=== PATIENT | female | born 1945 | race Caucasian/White ===

== ENCOUNTER → 2018-08-13 13:31 | Outpatient (CLI) | payer OTHER, SELFPAY ==
[2018-08-13 14:31] LABS: Alanine Aminotransferase 41 IU/L (9-52); Albumin 4.4 g/dL (3.5-5.0); Albumin Globulin Ratio 1.6 (1.0-2.8); Alkaline Phosphatase 77 U/L (38-126); Aspartate Aminotransferase 41 IU/L (14-36); BUN Creatinine Ratio 18.3 (6-22); Bilirubin Total 0.9 mg/dL (0.2-1.3); Blood Urea Nitrogen 11 mg/dL (7-17); Calcium 9.8 mg/dL (8.4-10.2); Carbon Dioxide 31 mmol/L (22-32); Chloride 103 mmol/L (98-107); Cholesterol 259 mg/dL (140-199); Estimated Glomerular Filt Rate > 60.0 mL/min (>60); Globulin 2.7 g/dL (1.7-4.1); Glucose 122 mg/dL (80-110); HDL Cholesterol 33 mg/dL (40-60); HEMOLYSIS 16 (0-50); LDL Cholesterol Calculated 178 mg/dL (<100); Potassium 4.8 mmol/L (3.4-5.1); Sodium 144 mmol/L (137-145); Total Protein 7.1 g/dL (6.3-8.2); Triglycerides 241 mg/dL (35-150)
== END ==
PROVIDERS: Family Provider Family Medicine; PCP Family Medicine; Visit Provider Family Medicine
DX: E78.5 Hyperlipidemia, unspecified (principal); I10 Essential (primary) hypertension; Z51.81 Encounter for therapeutic drug level monitoring
CPT/HCPCS: 36415; 80053; 80061

== ENCOUNTER → 2019-01-30 13:54 | Outpatient (CLI) | payer OTHER, SELFPAY ==
--- NOTE | 2019-01-30 13:59 | DI.RAD.S_ITS ---
PROCEDURE: XR CHEST 2V INDICATIONS: breast cancer left r/o mets TECHNIQUE: 2 views of the chest were acquired. COMPARISON: None. FINDINGS: Surgical changes and devices: None. Lungs and pleura: Lungs are clear. No pleural effusions or pneumothorax. Mediastinum: Mediastinal contours are normal. Heart size is normal. Bones and chest wall: No suspicious bony abnormalities. Soft tissues appear unremarkable. IMPRESSION: No abnormality found. Dictated by: Amrit Gonzalez M.D. on 01/30/2019 at 16:39 Approved by: Amrit Gonzalez M.D. on 01/30/2019 at 16:39
[2019-01-30 14:30] LABS: Add Manual Diff / Slide Review NO; Alanine Aminotransferase 47 IU/L (9-52); Albumin 4.7 g/dL (3.5-5.0); Albumin Globulin Ratio 1.5 (1.0-2.8); Alkaline Phosphatase 79 U/L (38-126); Aspartate Aminotransferase 45 IU/L (14-36); Basophils Absolute Auto 100 /uL (0-100); Basophils Percent Auto 1.3 % (0-2); Bilirubin Total 0.7 mg/dL (0.2-1.3); Blood Urea Nitrogen 12 mg/dL (7-17); Calcium 9.8 mg/dL (8.4-10.2); Carbon Dioxide 30 mmol/L (22-32); Chloride 100 mmol/L (98-107); Eosinophils Absolute Auto 300 /uL (0-450); Eosinophils Percent Auto 3.3 % (2-4); Estimated Glomerular Filt Rate > 60.0 mL/min (>60); Globulin 3.2 g/dL (1.7-4.1); Glucose 106 mg/dL (80-110); HEMOLYSIS < 15 (0-50); Hematocrit 41.9 % (36-46); Hemoglobin 13.6 g/dL (12.0-16.0); Lymphocytes Absolute Auto 2400 /uL (1100-4500); Lymphocytes Percent Auto 27.1 % (25-40); Mean Corpuscular HGB Conc 32.5 % (30-36); Mean Corpuscular Hemoglobin 29.8 PG (26-34); Mean Corpuscular Volume 91.6 fL (80-100); Monocytes Absolute Auto 600 /uL (0-900); Monocytes Percent Auto 6.4 % (3-14); Neutrophils Absolute Auto 5500 /uL (1500-7000); Neutrophils Percent Auto 61.9 % (50-75); Platelet Count 269 X10^3/uL (150-400); Potassium 4.6 mmol/L (3.4-5.1); Red Blood Cell Count 4.58 X10^6/uL (4.0-5.2); Red Cell Distribution Width 14.4 % (11.6-14.8); Sodium 139 mmol/L (137-145); Total Protein 7.9 g/dL (6.3-8.2); White Blood Cell Count 8.8 X10^3/uL (4.5-11.0)
== END ==
PROVIDERS: Family Provider Family Medicine; PCP Family Medicine; Visit Provider Specialist
DX: C50.912 Malignant neoplasm of unspecified site of left female breast (principal); Z17.0 Estrogen receptor positive status [ER+]
CPT/HCPCS: 36415; 71046; 80053; 85025

== ENCOUNTER → 2019-02-12 10:57 | Outpatient (CLI) | payer OTHER, SELFPAY ==
--- NOTE | 2019-02-12 10:59 | DI.MRI.S_ITS ---
BREAST MRI OF BOTH BREASTS: 02/12/2019 CLINICAL: Left breast cancer. PROCEDURE: MR BREAST BI WO/W CON INDICATIONS: left breast cancer. 2 lesions on mammo one one U/S TECHNIQUE: The patient was placed prone in a dedicated breast imaging coil. Precontrast axial STIR and 3D FLASH without fat saturation sequences were obtained. Both before and after bolus injection of contrast, sequential 1-minute axial 3D FLASH with fat saturation sequences for 3 time points, with subtraction images and maximum intensity projections (MIP's) generated. Delayed sagittal FLASH images with fat saturation were also obtained. Computer-aided detection, including computer algorithm analysis of MRI image data for lesion detection and characterization, pharmacokinetic analysis, with further physician review for interpretation, was performed. COMPARISON: [facility], US, US BREAST LIMITED LEFT, 12/27/2018, 12:33. [facility], US, US BIOPSY BREAST 1ST LESION LEFT, 01/14/2019, 13:29. [facility] DIAGNOSTIC BILATERAL, 12/27/2018, 12:43. [facility], BILATERAL SCREENING MAMMOGRAM, 08/21/2015, 14:59. FINDINGS: Image quality: Excellent. There is moderate background parenchymal enhancement. Right breast: No suspicious lesions. No suspicious enhancement. Left breast: A spiculated enhancing mass is present within the left breast at 3:00 at a middle depth which corresponds with the biopsy proven neoplasm. On MRI this mass measures approximately 2.6 x 1.7 x 2.4 cm. This correlates with the spiculated mass within left breast on the comparison diagnostic mammogram dated 12/27/18. A satellite lesion measuring 1.1 x 0.8 x 0.9 cm is present at 4:00 at a posterior depth approximately 1 cm posterior and 1 cm inferior to the index lesion. There is no definite mammographic correlate to this lesion. Additionally, this was not seen on prior ultrasound. There is no MRI correlate to the two palpable lesions demarcated by the patient at 12:00 on the comparison mammogram dated 12/27/18. Miscellaneous: No axillary or intramammary adenopathy. Visualized portions of the upper abdomen, mediastinum, and lungs are grossly unremarkable on this limited view. The heart appears enlarged. IMPRESSION: KNOWN BIOPSY PROVEN MALIGNANCY 1. Spiculated mass at 3:00 in the left breast at a middle depth which corresponds with the biopsy proven neoplasm. 2. Small satellite lesion at 4:00 as described above. 3. No MRI correlate to the palpable masses demarcated by the patient at 12:00 on the comparison mammogram dated 12/27/18. 4. No findings to suggest jane metastasis. 5. No contralateral disease. Electronically Signed By: Nena Son M.D. lk/:02/13/2019 08:22:14 copy to: Kendra Espitia ACR BI-RADS Category 6: Known biopsy proven malignancy [id number]
== END ==
PROVIDERS: PCP Family Medicine; Visit Provider Specialist
DX: R92.8 Other abnormal and inconclusive findings on diagnostic imaging of breast (principal); C50.812 Malignant neoplasm of overlapping sites of left female breast; Z17.0 Estrogen receptor positive status [ER+]
CPT/HCPCS: 77049; A9579

== ENCOUNTER 2019-02-22 13:17 | Inpatient (IN) | payer OTHER, SELFPAY ==
[2019-02-12 07:28] VITALS: BMI 37.5
[2019-02-21] VITALS (17 sets, daily range): BP systolic 141–192; BP diastolic 69–90; PULSE 70–89; RESP 9–70; TEMP 35.9–36.8; O2SAT 92–99; BMI 37.4
--- NOTE | 2019-02-21 | PATH_ITS ---
[facility] Accession Number: [id number] . 01 Material submitted: . PART A: LEFT SENTINAL NODES PART B: LEFT BREAST . 01 Clinical history: . A: MULTIPLE . 01 Diagnosis: A. Left [place] Lymph Nodes, Lymph Node Dissection: Rare Isolated Tumor Cells (ITC) present, in one lymph node. Pathologic staging: pN0(i+), 0 out of 2 lymph nodes examined, see microscopic description. . B. Left Breast, Left Modified Radical Mastectomy: Invasive lobular carcinoma, pleomorphic-type, see microscopic description. Histologic grade ([place]): Intermediate (6/9). Tubal formation: minimal (3/3),nuclear pleomorphism: moderate (2/3), mitotic rate: low (1/3). Greatest length of invasive carcinoma: 3.4 cm, see microscopic description. Lymphovascular invasion: Not identified. Lobular carcinoma in situ: Present. Surgical margins: Negative for invasive and in situ lobular carcinoma. Invasive lobular carcinoma is within 0.6 cm from the closest posterior margin, 0.7 cm from the closest anterior/superior margin and 1.1 cm from the closest anterior/inferior margin. Pathologic staging: pT2,N0(i+),Mx. . See below CAP template (2019) for breast carcinoma, for details. . . CAP BREAST CANCER CASE SUMMARY: Procedure: Left modified radical mastectomy . Tumor site: Upper/lower outer quadrant (3 to 4 o'clock) Tumor size: 3.4 cm, see microscopic description Histologic type: Invasive lobular carcinoma (pleomorphic type) Histologic grade: [place] histologic score intermediate (6/9) Glandular/Acinar/Tubular differentiation: Score 3 (less than 10% of tumor area forming glandular/tubular structures Nuclear Pleomorphism: Score 2 Mitotic Rate: Score 1 Overall Grade: Grade 2 Tumor focality: Two foci of invasive carcinoma Number of foci: 2, the largest focus of invasive carcinoma measures 2.4 cm and the additional focus of invasive carcinoma measures 0.6 cm, see microscopic description. . Ductal carcinoma in situ: Not identified. . Tumor Extension: Skin is present and not involved. Nipple not involved. Skeletal muscle fibers are identified on the posterior aspect of the specimen (on the slides) and are not involved by carcinoma. . Invasive carcinoma margins: Not involved. Distance from the closest margin: Posterior margin: 0.6 cm (block B30) Anterior/superior margin: 0.7 cm (block B24) Anterior/inferior margin: 1.1 cm (block B14) . Lobular carcinoma in situ: Present, classic (non-pleomorphic) type. Lobular carcinoma in situ is identified in 14 blocks examined. Surgical margins: Not involved by lobular carcinoma in situ. The closest margin to lobular carcinoma in situ is: posterior 0.8 cm. . Regional Lymph Nodes: No lymph nodes identified within the axillary tail. [place] lymph nodes Two (0/2), see part A. Isolated tumor cells (two tumor cells, by immunohistochemistry), see part A. Number of sentinel lymph nodes examined: Two. . Treatment effect: No known presurgical therapy. . Lymphovascular invasion: Not identified. Dermal lymph-vascular invasion: Not identified. . Pathologic staging: Primary tumor: pT2 (tumor more than 20 mm but less than 50 mm in greatest dimension). Lymph nodes: pN0(i+) ITC only by immunohistochemistry. Distant metastasis: pMx (Unknown). . Breast biomarkers testing performed on previous biopsy (see [facility] report). Estrogen Receptor (ER): Positive (3+, more than 95%) Progesterone Receptor (MO): Positive (3+, 90%) HER2 (by immunohistochemistry): Negative (1+) . Microcalcifications: Not identified. . Additional findings: Atypical intraductal papilloma (block B3), see microscopic description. Sclerosing adenosis/fibrocystic changes/apocrine metaplasia present. Ductal epithelial proliferation (block B4), approaching the cauterized anterior/superior margin (due to cautery effect, further evaluation in that focus of epithelial ductal proliferation is limited). Calcified fibroadenoma present. Complex sclerosing lesion (radial scar) present. Previous biopsy changes present. Dystrophic vascular calcifications also present. . CAP breast template (updated 2019). MRV/02/27/2019 . 01 Comment: Selected slides have also been reviewed by Dr. Marco Ware (slides A1, B14, B3 and B4). . 01 Electronically signed: . Mariah Odell MD, Pathologist NPI- [id number] . 01 Gross description: . (A) Received in formalin, labeled multiple left sentinel nodes, is a piece of [place]-yellow rubbery adipose tissue (5.7 x 4.5 x 1.5 cm) containing two lymph nodes (node #1-1.2 x 0.5 x 0.3 cm; node #2-3.3 x 2.0 x 1.0 cm). Section code: (A1) lymph node #1, serially sectioned; (A2-A7) lymph node #2, serially sectioned. Additional sections: (A8, A9 and A10) remaining fatty tissue. Note: the entire specimen is submitted. (B) Received: In formalin labeled left breast, stitch feldman tail of Longo. Specimen: Left modified radical mastectomy. Weight: 661 grams. Measurement: 5.5 cm anterior to posterior, 18.3 cm medial to lateral and 16.8 cm superior to inferior. Skin ellipse: Absent. Nipple/areola: 1.3 x 1.2 cm everted nipple within a 5.2 x 2.7 cm areola apparently encircled by a rim of skin up to 1.5 cm in depth. No linear scar is identified. Axillary tail: Attached, nonoriented, measures 10.8 x 5.5 x 2.1 cm. Margins: The specimen is oriented by surgeon with two-tailed black suture marking the tail of Longo. The posterior surface is covered by fascia and is inked black. The anterior soft tissue margins are unremarkable and are inked blue for anterior superior and green for anterior inferior. Slices: Serial sections of the specimen are consecutively numbered 1 to 46, from medial to lateral. Masses: Two. Mass #1: Description: [place]-white, firm, irregular. Size: 2.4 x 1.8 x 1.5 cm. Slices involved: Slices #27-#32, 3 o'clock outer quadrant. Distance to margins: 1.2 cm from the posterior margin, 0.8 cm from the superficial anterior superior margin, 1.0 cm from the superficial anterior posterior margin, 1.2 cm from the skin/nipple and areolar complex, and 0.4 cm superior to mass #2. Mass #2: Description: [place]-white, firm and irregular. Size: 0.6 x 0.6 x 0.5 cm. Slices involved: Slices #28 and #29, approximately 3 o'clock to 4 o'clock outer quadrant. Distance to margins: 1.5 cm from the posterior, 1.8 cm from the superficial anterior superior margin, 0.9 cm from the superficial anterior inferior margin, and 1.4 cm from the skin/nipple and areolar complex. Slices #1-#17, as well as slices #35-#45 are fatty with a scant amount of tissue present. Slices #18-#34 are approximately 40% densely fibrous tissue with the remaining 60% fatty lobular parenchyma. The axillary tail is fatty with no lymph nodes identified. Fixation time: The specimen was placed in formalin on 02/21/2019 with no time given. The approximate total fixation time is calculated to be 69 hours 30 minutes. Sections: B1: Nipple, bisected and entirely submitted. B2: Areola with rim of skin, sections taken from 12 o'clock, 3 o'clock, 6 o'clock, and 9 o'clock. B3: Slice 22, fibrous tissue from 1.7 cm from the posterior and 2.5 cm from the anterior inferior resection margins. B4-B5, B6-B7: Slice #26, bottling equipment sales representative, no mass, medial to mass, submitted anterior to posterior and then superior to inferior. B8-B9, B10-B11: Slice #27, mass #1 with margins and surrounding fibrous tissue, submitted anterior to posterior and then superior to inferior. B12-B13, B14-B15: Slice #28, mass #1 with mass #2, submitted anterior to posterior and then superior to inferior. B16-B17, B18-B19, B20-B21, B22-B23: Slice #29, mass #1 with mass #2 submitted anterior to posterior then superior to inferior. B24-B25: Slice 30, mass #1 with margins and surrounding fibrous tissue, submitted anterior to posterior. B26-B27: Slice #31, mass #1 with margin and surrounding fibrous tissue, submitted superior to inferior. B28-B29: Slice 32, mass #1 with margin and surrounding fibrous tissue, submitted superior to inferior. B30-B31: Slice #33, bottling equipment sales representative, no mass, lateral to mass #1, submitted superior to inferior. B32: Slice #34, bottling equipment sales representative fibrous tissue with margin. B33: Upper outer quadrant. B34: Upper inner quadrant. B35: Lower outer quadrant. B36: Lower inner quadrant. (:[id number]) . Note: Dr. Shirley Chu has been consulted for the grossing of parts A and B. /MRV . 01 Microscopic: . Part A: Two sentinel lymph nodes are present (the entire specimen is submitted for microscopic examination as the attached nuclear radiology/nuclear medicine report mentioned 3 left axillary lymph nodes). On the H/E, no carcinoma cells were identified; therefore, JOCELYNE immunostain (panepithelial marker) was performed on all blocks with lymph nodes (A1-A7). On block A1, there are rare (two) tumor cells identified by immunohistochemistry. . Based on the CAP template for breast cancer, the pathologic staging (despite the rare isolated tumor cells) is pN0(1+), 0 lymph nodes out of 2 lymph nodes examined. . Part B: Although immunostains were performed on the initial biopsy, since this invasive carcinoma is much larger than the initial biopsy (multifocal and with pleomorphic morphology), immunohistochemistry was repeated to confirm the initial interpretation, with the following results: The carcinoma is negative for e-cadherin and beta-catenin, confirming lobular differentiation (stains performed on block B14). . To further evaluate the atypical intraductal papilloma (block B3), immunostains were performed with the following results: e-cadherin is positive on the epithelial cells (supporting ductal origin versus lobular origin), and myosin and p63 immunostains are present and slightly reduced. 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 . E-cadherin immunostain is also performed on block B5 in an attempt to support focus of atypical ductal hyperplasia (ADH) and exclude the possibility of lobular carcinoma in situ (LCIS); e-caderin is positive in the area of interest. This result supports ADH. . Size of invasive carcinoma: The largest dimension of one focus of invasive carcinoma measures 2.4 cm. In addition, there is another focus that measures 0.6 cm in largest diameter. This smaller focus shows identical histology and is located less than 5 mm from the larger focus. Therefore, since they are histologically identical and within less than 5 mm (4 mm apart), the largest size of invasive carcinoma is calculated to be 3.4 cm (2.4 cm plus 0.6 cm plus 0.4 cm). The pathologic staging based on the size is pT2. . Technical Note: The immunohistochemistry stains reported were developed and their performance characteristics determined by [employer] They have not been cleared or approved by the U.S. Food and Drug Administration, although such approval is not required for analyte-specific reagents of this type. . 01 Pathologist provided ICD-10: C50.512 . 01 CPT . 199257, 359702, C89870, P90750 Performed at: 01 [facility] [address] [place] [address], [place], [place] [id number] MD Jered Nielson MD Phone: [phone]
--- NOTE | 2019-02-21 09:08 | DI.NM.S_ITS ---
PROCEDURE: NM SENTINEL NODE W IMAGING RADIOPHARMACEUTICAL: 0.5-1.0 mCi Millipore filtered Tc-99m sulfur colloid. INDICATIONS: Preoperative mapping for sentinel node biopsy TECHNIQUE: The area around the nipple was prepped and draped in a sterile fashion. Tc-99m sulfur colloid was injected intra-dermally in the outer edge of the areola in the left breast. Images were obtained subsequently. A body contour outline was obtained. FINDINGS: There are 3 lymph node(s) in the ipsilateral axilla, which is marked on the skin and the images for referring physician. IMPRESSION: 3 ipsilateral left axillary lymph nodes are identified. Administration of radiotracer for intra-operative sentinel lymph node localization. Dictated by: Sherice Foreman M.D. on 02/21/2019 at 11:46 Approved by: Sherice Foreman M.D. on 02/21/2019 at 11:48
--- NOTE | 2019-02-21 11:38 | PM.PREOP ---
Pre-operative Note Interval Note History & Physical reviewed/Exam performed by Physician: Yes Changes to H&P: No
[2019-02-21] MEDS: CEFAZOLIN 2 GM/100 ML FROZ.PIGGY IV (11:55)
--- NOTE | 2019-02-21 12:21 | SUR.OPER ---
Supine on padded OR bed, head on pillow, arms secured on padded arm boards at <90 degrees abduction, legs uncrossed, safety belt at thigh, tape over blanket over lower legs.
[2019-02-21] MEDS: ACETAMINOPHEN IV 1,000 MG/100 ML VIAL 400 MG IV (12:59)
--- NOTE | 2019-02-21 14:19 | PM.OP.1 ---
Operative Date/Time/Diagnoses Date of procedure: 02/21/19 Time of procedure: 14:20 Pre-op diagnosis: Left-sided breast cancer Post-op diagnosis: same Procedure & Clinicians Procedure: Left mastectomy with sentinel node biopsy Same procedure as scheduled: Yes Indications: Patient with breast cancer opted to undergo mastectomy Surgeon: Gareth Martin Click Yes if Unassisted: Yes Anesthesia Type: General Operative Notes Findings: Multiple sentinel nodes removed in 1 piece of tissue. Closure Type: primary Specimen(s): other (Breast and sentinel nodes) Applied: drain(s) (Saul) Estimated Blood Loss (mL): 75 Blood products transfused: none Procedure in detail: Patient is placed supine on the operating room table and underwent general LMA anesthesia. She was prepped and draped in the usual fashion. Elliptical incision was made around her nipple-areolar complex. Flap was raised superiorly to the clavicle medially the midline and laterally to encompass tail of Longo. The dissection was carried down into the axilla and using the Navigator probe sentinel nodes were identified and removed. One piece of tissue was removed but there were multiple nodes within it that were hot. 10 sec counts on the strongest 1 were 25,000 and the 2nd was over 12,000. No other nodes remaining in the axilla came close to 10% of the values of those nodes. Flap was then raised inferiorly to the rectus fascia was incised over inferiorly medially and superiorly and then the breast was taken off the underlying muscle superior to inferior medial lateral. Ultimately the breast was detached and submitted. The wound was irrigated and was hemostasis achieved. A Saul drain 19 [place] was inserted under the flaps and extended toward the axilla. The subcu was closed with interrupted 3 0 Vicryl and the skin was closed running 4 Vicryl subcuticular stitch and Steri-Strips. The drain was secured with a 3 0 nylon. Applied and the patient was taken to the recovery area in good condition. Complications: none Condition: stable Disposition: PACU
--- NOTE | 2019-02-21 14:35 | SUR.PHASEI ---
REPORT CALLED TO VICKEY WOLF ON ACUTE CARE FLOOR. PT IN STABLE CONDITION, VSS. IV SITE CLEAR AND INFUSING WITHOUT DIFFICULTLY. DRSG OBSERVED TO BE C/D/I. VICTORINO DRAIN IN PLACE AND DRAINING RED BLOOD. PT DENIES ANY PAIN OR DISCOMFORT AT THIS TIME. PT DENIES ANY NAUSEA. WILL TRANSPORT TO ACUTE CARE AFTER SHIFT CHANGE AT 1520.
[2019-02-21] MEDS: HYDROMORPHONE 2 MG INJ 0.5 MG IV ×2 (14:58→15:06)
[2019-02-21] MEDS: LACTATED RINGERS 1,000 ML 42 ML IV (15:00)
--- NOTE | 2019-02-21 15:41 | SUR.PHASEI ---
PT TRANSFERRED TO ACUTE CARE FLOOR IN STABLE CONDITION, VSS. PT ALERT AND TALKING TO RN DURING TRANSPORT. FAMILY IN ROOM UPON ARRIVAL. BEDSIDE REPORT GIVEN TO VICKEY LENNON AND TRANSFERRED CARE OF PT TO VICKEY LNENON.
[2019-02-21] MEDS: DEXTROSE 5%-0.45% NS 1,000 ML 80 ML IV (16:01)
[2019-02-21] MEDS: OXYCODONE/ACETAMINOPHEN 5/325 TABLET 1 TAB PO ×2 (17:16→21:32)
[2019-02-21] MEDS: SERTRALINE 50 MG TABLET PO (20:20)
[2019-02-21] MEDS: DOCUSATE 100 MG CAPSULE PO (20:20)
[2019-02-22] VITALS (17 sets, daily range): BP systolic 115–162; BP diastolic 50–99; PULSE 58–95; RESP 12–20; TEMP 36.6–37.8; O2SAT 92–99; BMI 37.4
[2019-02-22] MEDS: OXYCODONE/ACETAMINOPHEN 5/325 TABLET 1 TAB PO ×3 (01:35→20:16)
[2019-02-22] MEDS: DEXTROSE 5%-0.45% NS 1,000 ML 80 ML IV ×2 (04:44→18:44)
--- NOTE | 2019-02-22 05:28 | PC.NURSE ---
Pt. taken to the bathroom by GAS TRUCK DRIVER for void, around 0500 and while in the bathroom pt. had a near syncopal episode, pt. pale and diaphoretic. Rapid Response page overhead and help arrived, pt. assisted to a wheelchair and wheeled back to bed. VS taken showed a B/P-135/57, HR-58, 97% RA, pain is 7/10 to incision site. Tele applied also and pts. rhythm showed SB 56-58 HR. Emptied Saul drain of 15 ml. sanguinous drainage and at the beginning of shift also had 80 ml. sanguinous drainage with left chest drsg. dry. Called Dr. Martin and informed him of this incident, no new order, just continue to monitor pt's. status.
[2019-02-22 05:31] LABS: Add Manual Diff / Slide Review NO; Basophils Absolute Auto 100 /uL (0-100); Basophils Percent Auto 0.6 % (0-2); Eosinophils Absolute Auto 0 /uL (0-450); Hematocrit 31.9 % (36-46); Hemoglobin 10.6 g/dL (12.0-16.0); Lymphocytes Absolute Auto 1300 /uL (1100-4500); Lymphocytes Percent Auto 8.3 % (25-40); Mean Corpuscular HGB Conc 33.3 % (30-36); Mean Corpuscular Hemoglobin 30.4 PG (26-34); Mean Corpuscular Volume 91.3 fL (80-100); Monocytes Absolute Auto 1100 /uL (0-900); Monocytes Percent Auto 6.6 % (3-14); Neutrophils Absolute Auto 13500 /uL (1500-7000); Neutrophils Percent Auto 84.5 % (50-75); Platelet Count 245 X10^3/uL (150-400); Red Cell Distribution Width 14.3 % (11.6-14.8)
--- NOTE | 2019-02-22 06:15 | PC.NURSE ---
Pt. states her pain is always a 7/10 even with 1 Percocet and ice pack. Advise pt. that I will call surgeon to increase dose but then pt. states that 1 tab is ok and that she is not used to taking pain pill even aspirin. She is not used to taking drugs. Continue pain meds q4h prn pain.
--- NOTE | 2019-02-22 15:03 | CM.IDA ---
Discharge Planning/Care Management CM Discharge Assessment Start: 02/22/19 14:28 Freq: Status: Active Protocol: Document 02/22/19 14:28 ALISON (Rec: 02/22/19 15:03 ALISON [id number]) Discharge Planning Assessment Assigned Regional Climate Change Analyst BRY Art DPOA/Assigned Designee Name elodia Ospina Contact Information [phone] Advance Directives? No History Provided By Patient Medical Record Prior Living Arrangements House Household Members family children none Independent with ADL's Yes Is patient alert and oriented? Yes Barriers to Discharge No Comment Pt originally SDC for mastectomy, dx of Breast Cancer, now obs after returning to the OR today d/t a collection of blood around the surgical site (per nursing report). Payer: [facility]. According to chart review, pt will likely return home w/ friends to support and close outpt f/u. Need further assessment of DC needs. BRY Hernandez Discharge Plan Home Review Status In Process
--- NOTE | 2019-02-22 15:35 | SUR.HOLD ---
recieved pt from floor, recieved bedside report from VICKEY Benjamin, IV site patent, left chest/breast dressing is dry and intact, YENIFER present and compressed.
[2019-02-22] MEDS: LACTATED RINGERS 1,000 ML 42 ML IV (16:00)
--- NOTE | 2019-02-22 16:09 | PM.PREOP ---
Pre-operative Note Interval Note History & Physical reviewed/Exam performed by Physician: Yes Changes to H&P: Yes H&P completed within 30 days and has changed as indicated here:: Patient had bleeding in her operative site. She needs to have the hematoma evacuated. Her hematocrit dropped significantly. She did have some dizziness through the night in getting up to go to the bathroom. I have discussed the operation with her and will proceed accordingly.
[2019-02-22] MEDS: CEFAZOLIN 2 GM/100 ML FROZ.PIGGY IV (16:30)
--- NOTE | 2019-02-22 18:11 | PM.OP.1 ---
Operative Date/Time/Diagnoses Date of procedure: 02/22/19 Time of procedure: 17:40 Pre-op diagnosis: Postoperative bleeding Post-op diagnosis: same Procedure & Clinicians Procedure: Exploration of wound and evacuation of clot Same procedure as scheduled: Yes Indications: Bleeding into mastectomy site postop Surgeon: Gareth Martin Click Yes if Unassisted: Yes Anesthesia Type: General Operative Notes Findings: Large amount of clot under the flaps. Evaluated. No discrete bleeding site found. Meticulous hemostasis once again performed Closure Type: primary Specimen(s): none sent Applied: drain(s) (Saul 19 [place] Islander) Estimated Blood Loss (mL): 700 Blood products transfused: none Procedure in detail: Patient is placed supine on the operating room table and underwent general LMA anesthesia. She was prepped in the usual fashion. I removed the old stitches and evacuated about 700 cc of clotted material. I carefully removed every bit of clot I could and irrigated the chest wall. I cauterized anything that is oozed. At completion there did not appear to be any bleeding. the drain was redistributed under the flaps and into the axilla. The subcu was closed with interrupted 3 0 Vicryl. The skin was closed running for 0 Vicryl subcuticular stitch and Steri-Strips. Dressing was applied Puneet wrap was applied and she was taken to the recovery area in good condition Complications: none Condition: stable Disposition: PACU
[2019-02-22] MEDS: DOCUSATE 100 MG CAPSULE PO (20:16)
[2019-02-22] MEDS: SERTRALINE 50 MG TABLET PO (20:16)
[2019-02-23 00:30] VITALS: BP 141/71; PULSE 87; RESP 18; TEMP 36.3; O2SAT 97
[2019-02-23] MEDS: OXYCODONE/ACETAMINOPHEN 5/325 TABLET 1 TAB PO ×3 (01:41→20:20)
[2019-02-23 04:30] VITALS: BP 135/62; PULSE 75; RESP 20; TEMP 36.4; O2SAT 97
[2019-02-23 06:15] LABS: Add Manual Diff / Slide Review NO; Basophils Absolute Auto 0 /uL (0-100); Basophils Percent Auto 0.1 % (0-2); Eosinophils Absolute Auto 0 /uL (0-450); Hematocrit 24.7 % (36-46); Hemoglobin 8.5 g/dL (12.0-16.0); Lymphocytes Absolute Auto 700 /uL (1100-4500); Lymphocytes Percent Auto 6.3 % (25-40); Mean Corpuscular HGB Conc 34.4 % (30-36); Mean Corpuscular Volume 90.2 fL (80-100); Monocytes Absolute Auto 600 /uL (0-900); Neutrophils Absolute Auto 9300 /uL (1500-7000); Neutrophils Percent Auto 87.6 % (50-75); Platelet Count 177 X10^3/uL (150-400); Red Blood Cell Count 2.74 X10^6/uL (4.0-5.2); Red Cell Distribution Width 14.7 % (11.6-14.8); White Blood Cell Count 10.6 X10^3/uL (4.5-11.0)
[2019-02-23] MEDS: DEXTROSE 5%-0.45% NS 1,000 ML 80 ML IV ×2 (08:13→20:14)
[2019-02-23] MEDS: MULTIVIT,CALC,MINS/IRON/FOLIC 1 TABLET 1 TAB PO (08:18)
[2019-02-23] MEDS: DOCUSATE 100 MG CAPSULE PO (08:21)
[2019-02-23 09:10] VITALS: BP 129/56; PULSE 75; RESP 18; TEMP 36.3; O2SAT 97
--- NOTE | 2019-02-23 09:47 | PM.PN.1 ---
Subjective Date Patient Seen: 02/23/19 Time Patient Seen: 09:47 Interval history: Patient is postop mastectomy and reoperation for evacuation of a chest wall hematoma. Subjectively she feels well this morning with minimal discomfort. Exam Vital Signs (past 8 hours): - 02/23/19 04:30 Temperature 97.5 F L Pulse Rate 75 Respiratory Rate 20 Blood Pressure 135/62 Pulse Oximetry 97 Oxygen Delivery Method Room Air Oxygen Flow Rate 0 Narrative Exam Narrative: On exam she is stable alert oriented still in bed tolerating a diet well and has only moderate serosanguineous drainage in her Ciro drain hemoglobin this morning is 10.6 Objective Labs Result Diagrams: 02/23/19 06:03 Labs: Laboratory Results - last 24 hr 02/23/19 06:03 WBC 10.6 RBC 2.74 L Hgb 8.5 L Hct 24.7 L MCV 90.2 MCH 31.0 MCHC 34.4 RDW 14.7 Plt Count 177 Neut % (Auto) 87.6 H Lymph % (Auto) 6.3 L [place] % (Auto) 6.0 Eos % (Auto) 0.0 L Baso % (Auto) 0.1 Neut # (Auto) 9300 H Lymph # (Auto) 700 L [place] # (Auto) 600 Eos # (Auto) 0 Baso # (Auto) 0 Assessment & Plan Assessment & Plan narrative: Patient is recovering well after a mastectomy and evacuation of a chest wall hematoma beneath the flaps. At the time of re-exploration there was no sign of active bleeding and the hematoma was evacuated completely. Her hemoglobin is 10.6. Plan to get patient out of bed with physical therapy to help ambulate. Patient has requested a laxative which has been ordered.
[2019-02-23] MEDS: POLYETHYLENE GLYCOL 3350 17 GM POWD.PACK PO (10:54)
[2019-02-23 14:05] VITALS: BP 132/64; PULSE 76; RESP 18; TEMP 36.7; O2SAT 98
--- NOTE | 2019-02-23 14:34 | PT.IIE ---
Current Diagnoses Malignant neoplasm of unspecified site of left female breast (02/22/19) Estrogen receptor positive status [ER+] (02/22/19) Surgery Performed Operation Date: 02/21/19 11:00 Actual Procedures p Mastectomy w/[place] Node Mapping/loc(Left) - Gareth Martin MD Operation Date: 02/22/19 16:00 Actual Procedures p Breast Evacuation of blot clots s/p Mastectomy 02-21-19(Left) - Gareth Martin MD Surgical History (Last Updated 02/12/19 @ 07:38 by Kelli Cardenas RN) Hx of breast biopsy (Acute) History of removal of ovarian cyst (Resolved 1970) History of tonsillectomy Medical History (Last Updated 02/12/19 @ 07:38 by Kelli Cardenas RN) Anxiety about health (Acute) Alopecia (Chronic Unknown) Depression (Chronic Unknown) Herpes (Chronic Unknown) Hyperlipemia (Chronic Unknown) Hypertension (Chronic Unknown) Hypoglycemia (Chronic Unknown) Irritable bowel (Chronic Unknown) Osteopenia (Chronic Unknown) Rosacea (Chronic Unknown) Arm fracture, right (Resolved 12/2007) Carpal tunnel syndrome (Resolved 04/2008) Physical Therapy Inpatient Evaluation/Re-Eval M1 PT/OT-IP Prior Functional Status Start: 02/23/19 14:46 Freq: NEEDED Status: Active Protocol: Document 02/23/19 14:34 DLM (Rec: 02/23/19 15:02 DL [id number]) Medical Review Prior Functional Status Medical History Reviewed Yes Diet/Fluid Consistency Regular Communication WNL Mobility and Gait Independent without device, walks for exercise in community Activities of Daily Living and IADL's Independent, helps care for her Mother Social History Household Members family children none Living Arrangements House Number of Floors (Floors) One Floor Number of Stairs To Enter/Railing? 2, no rail Employment Status Unemployed Additional Social History Comment not working at this time to help take care of her Mother, she has friends who plan to help at discharge with things like groceries, etc. Her Son runs his own business and can not take a lot of time off. M2 PT-IP Current Condition Start: 02/23/19 14:46 Freq: NEEDED Status: Active Protocol: Document 02/23/19 14:34 DLM (Rec: 02/23/19 15:02 DLM [id number]) Physical Therapy Current Condition Current Condition Evaluation Date 02/23/19 Treatment Diagnosis impaired gait Onset Date 02/22/19 Precautions Other Precautions post-mastectomy on left M3 PT-IP Subjective Start: 02/23/19 14:46 Freq: NEEDED Status: Active Protocol: Document 02/23/19 14:34 DLM (Rec: 02/23/19 15:02 [facility] [id number]) Subjective Physical Therapy Visit Type Type Initial Evaluation Visit Start Time 13:45 Visit Stop Time 14:34 Total Visit Minutes 49 Number of ROUSTABOUT PUSHER Visits 0 Physical Therapy Visit Comments Patient Comments She does not feel ready to go home Patient Goals get better Therapy Pain Assessment Pain When Pain Assessed After Treatment Pain Present Pain Present Pain Reported Location Left Breast Intensity 7 Scale Used Numeric (1 - 10) Description Aching Pain Behaviors Guarding Pain Management Techniques Apply Cold Re-positioning M4 PT-IP Mobility and Gait Start: 02/23/19 14:46 Freq: NEEDED Status: Active Protocol: Document 02/23/19 14:34 DLM (Rec: 02/23/19 15:02 [facility] [id number]) PT-Bed Mobility Assessment Rolling Type of Rolling Roll to Right Level of Assist Independent Supine to Sit Supine to Sit Standby Assistance Scooting Scooting to Edge of Bed Independent PT-Transfer Assessment Sit to and From Stand Sit to and from Stand Independent Use of Upper Extremities Equipment Transfer Assistive Device Gait Belt Transfers Transfer Destination Chair Toilet Transfer Technique Stand Step Pivot Transfer Ability Level of Assist Standby Assistance Use of Upper Extremities Comments Mobility Comments trails performed with and without fWW, pt up to toilet for BM Gait Assessment Gait Gait Assistance Required: Standby Assistance Contact Guard Assist Distance (Feet) 30 Assistive Devices Assistive Device None Gait Belt Front Wheeled Walker Gait Deviations General Gait Pattern Decreased Stride Length Factors Limiting Gait Function Factors Limiting Gait Function Decreased Activity Tolerance Comments Gait Comments trials of gait with and without fWW, good balance with fWW, mild decrease balance without device that improved as she ambulated, will continue to assess if she will needs a cane or fWW for home use PT-Balance Assessment Sitting Balance and Reactions Static Sitting Balance Ability Normal Dynamic Sitting Balance Ability Normal Standing Balance and Reactions Static Standing Balance Ability Good Dynamic Standing Balance Ability Fair M5 PT-IP Objective Assessments Start: 02/23/19 14:46 Freq: NEEDED Status: Active Protocol: Document 02/23/19 14:34 DLM (Rec: 02/23/19 15:02 DLM [id number]) Orientation Orientation/Cognition Level of Alertness Alert Orientation Name Age Birthday Month Date Year Day of Week Place Situation Language Function Ability No Deficits Noted Safety Awareness Understands Safety Issues Memory Description No Deficits Noted Comments she is fearful today Gross Range of Motion Upper Extremity ROM Assessment Left Impaired Impairments left UE limited by pain in breast area, functional for mobility Lower Extremity ROM Assessment Within Functional Limits Strength Upper Extremity Strength Assessment Left Impaired Shoulder limited by post-op precautions Elbow using functionally Hand good functional use Lower Extremity Strength Assessment Within Functional Limits Coordination Assessment Gross Coordination Gross Coordination WNL Sensation Assessment Sensation Gross Sensation WNL Muscle Tone Muscle Tone WNL Yes M6 PT-IP Treatment Start: 02/23/19 14:46 Freq: NEEDED Status: Active Protocol: Document 02/23/19 14:34 DLM (Rec: 02/23/19 15:02 DLM [id number]) Physical Therapy Treatment Exercises Exercises Ankle Pumps Education Education Provided Safety M7 PT-IP Assessment and Plan Start: 02/23/19 14:46 Freq: NEEDED Status: Active Protocol: Document 02/23/19 14:34 DLM (Rec: 02/23/19 15:02 DLM [id number]) PT Summary Assessment and Plan Potential Rehabilitation Potential Good Status of Condition at Evaluation Evolving Summary Impairments Pain ROM Strength Balance Transfers Gait Activity Tolerance Assessment Summary Vianca is alert and motivated to work with physical therapy. She tolerated gait in her room and up to toilet well this visit. No dizziness. She reports mild unsteadiness with gait today. She does not use an assistive device at baseline. Gait training performed today with and without fWW. Will continue to assess for home equipment needs as she improves. I anticipate she will be able to return home when medically stable. Goals Bed Mobility Goal Independent Transfer Goal Independent Gait Goal Independent Cane Gait Distance 150 feet Other Goals up and down 2 steps with cane and SBA Days to Meet Goals 3 Frequency of Treatment Frequency Of Treatment Twice a Day Treatment Plan Physical Therapy Treatment Plan Bed Mobility Training Transfer Training Gait Training Therapeutic Exercise Balance Retraining Discharge Planning Other Recommendations and Next Treatment assess for home assist device- Focus cane vs FWW vs none Recommendations To Nursing Amount of Assist Needed Standby Assistance Discharge Recommendations PT Discharge Recommendations Home with Assistance Other Discharge Recommendations she reports her friends will be in/out to assist, has supportive Son Equipment Needed for Home Before assess if needs cane or FWW Discharge for home
[2019-02-23 15:38] VITALS: BP 124/57; PULSE 63; RESP 16; TEMP 36.7; O2SAT 94
[2019-02-23 19:21] VITALS: BP 137/66; PULSE 72; RESP 18; TEMP 36.8; O2SAT 97
[2019-02-23] MEDS: SERTRALINE 50 MG TABLET PO (20:14)
[2019-02-24 00:04] VITALS: BP 131/56; PULSE 80; RESP 18; TEMP 36.9; O2SAT 95
[2019-02-24] MEDS: OXYCODONE/ACETAMINOPHEN 5/325 TABLET 1 TAB PO ×3 (03:25→21:04)
[2019-02-24 04:25] VITALS: BP 134/72; PULSE 69; RESP 18; TEMP 37.1; O2SAT 97
[2019-02-24 07:25] VITALS: BP 136/62; PULSE 66; RESP 18; TEMP 36.5; O2SAT 97
[2019-02-24] MEDS: MULTIVIT,CALC,MINS/IRON/FOLIC 1 TABLET 1 TAB PO (08:30)
--- NOTE | 2019-02-24 09:25 | PM.PN.1 ---
Subjective Date Patient Seen: 02/24/19 Time Patient Seen: 09:25 Interval history: Patient is several days now post left mastectomy and evacuation of a wound hematoma stable vital signs she feels well minimal discomfort she is moving her bowels she is walking in the room Exam Vital Signs (past 8 hours): - 02/24/19 04:25 Temperature 98.7 F Pulse Rate 69 Respiratory Rate 18 Blood Pressure 134/72 Pulse Oximetry 97 Oxygen Delivery Method Room Air Oxygen Flow Rate 0 Narrative Exam Narrative: Her vital signs are stable she is ambulatory I have inspected the dressing is dry and intact and did not remove the dressing there is the expected amount of ecchymosis around the periphery of the wound. Objective Labs Result Diagrams: 02/23/19 06:03 Assessment & Plan Assessment & Plan narrative: Patient is recovering nicely following a left mastectomy and evacuation of wound hematoma. Of course we have no histopathology yet. Patient is recovering nicely from her operation. She will stay here yet today and possibly be discharged per her surgeon tomorrow. I have discontinued her intravenous fluids.
--- NOTE | 2019-02-24 09:46 | PT.IPTN ---
Current Diagnoses Malignant neoplasm of unspecified site of left female breast (02/22/19) Estrogen receptor positive status [ER+] (02/22/19) Surgery Performed Operation Date: 02/21/19 11:00 Actual Procedures p Mastectomy w/[place] Node Mapping/loc(Left) - Gareth Martin MD Operation Date: 02/22/19 16:00 Actual Procedures p Breast Evacuation of blot clots s/p Mastectomy 02-21-19(Left) - Gareth Martin MD Physical Therapy Treatment Note M2 PT-IP Current Condition Start: 02/23/19 14:46 Freq: NEEDED Status: Active Protocol: Document 02/23/19 14:34 DLM (Rec: 02/23/19 15:02 DL [id number]) Physical Therapy Current Condition Current Condition Evaluation Date 02/23/19 Treatment Diagnosis impaired gait Onset Date 02/22/19 Precautions Other Precautions post-mastectomy on left M3 PT-IP Subjective Start: 02/23/19 14:46 Freq: NEEDED Status: Active Protocol: Document 02/24/19 09:46 DLM (Rec: 02/24/19 12:31 [facility] [id number]) Subjective Physical Therapy Visit Type Type Treatment Note Visit Start Time 09:15 Visit Stop Time 09:46 Total Visit Minutes 31 Number of CRUSHER SUPERVISOR Visits 0 Physical Therapy Visit Comments Patient Comments She does not feel ready to go home Patient Goals get better Therapy Pain Assessment Pain When Pain Assessed After Treatment Pain Present Pain Present Pain Reported Location Left Breast Intensity 6 Scale Used Numeric (1 - 10) Description Aching Pain Behaviors Guarding Pain Management Techniques Apply Cold Re-positioning M4 PT-IP Mobility and Gait Start: 02/23/19 14:46 Freq: NEEDED Status: Active Protocol: Document 02/24/19 09:46 DLM (Rec: 02/24/19 12:31 [facility] [id number]) PT-Bed Mobility Assessment Rolling Type of Rolling Roll to Right Level of Assist Independent Supine to Sit Supine to Sit Independent Scooting Scooting to Edge of Bed Independent PT-Transfer Assessment Sit to and From Stand Sit to and from Stand Independent Use of Upper Extremities Equipment Transfer Assistive Device Gait Belt Transfers Transfer Destination Chair Toilet Transfer Technique Stand Step Pivot Transfer Ability Level of Assist Standby Assistance Use of Upper Extremities Comments Mobility Comments pt up to toilet for BM, drain still in place left chest area Gait Assessment Gait Gait Assistance Required: Standby Assistance Distance (Feet) 200 Assistive Devices Assistive Device Gait Belt Front Wheeled Walker Factors Limiting Gait Function Factors Limiting Gait Function Decreased Activity Tolerance Comments Gait Comments pt prefers to use the fWW today for gait Stair Climbing Assessment Evaluation Level of Assist On Stairs Standby Assistance Devices Stair Climbing Assistive Devices Left Railing Right Railing Technique/Endurance Stair Climbing Direction Ascend and Descend Stair Climbing Technique Step to Step Number of Steps Climbed 3 Query Text: Stair Climbing Set # Repetitions (reps) 1 Comments Stair Climbing Comments pt only holding rail with right UE due to mastectomy on left PT-Balance Assessment Sitting Balance and Reactions Static Sitting Balance Ability Normal Dynamic Sitting Balance Ability Normal Standing Balance and Reactions Static Standing Balance Ability Good Dynamic Standing Balance Ability Good Device Used FWW M5 PT-IP Objective Assessments Start: 02/23/19 14:46 Freq: NEEDED Status: Active Protocol: Document 02/23/19 14:34 DLM (Rec: 02/23/19 15:02 DLM [id number]) Orientation Orientation/Cognition Level of Alertness Alert Orientation Name Age Birthday Month Date Year Day of Week Place Situation Language Function Ability No Deficits Noted Safety Awareness Understands Safety Issues Memory Description No Deficits Noted Comments she is fearful today Gross Range of Motion Upper Extremity ROM Assessment Left Impaired Impairments left UE limited by pain in breast area, functional for mobility Lower Extremity ROM Assessment Within Functional Limits Strength Upper Extremity Strength Assessment Left Impaired Shoulder limited by post-op precautions Elbow using functionally Hand good functional use Lower Extremity Strength Assessment Within Functional Limits Coordination Assessment Gross Coordination Gross Coordination WNL Sensation Assessment Sensation Gross Sensation WNL Muscle Tone Muscle Tone WNL Yes M6 PT-IP Treatment Start: 02/23/19 14:46 Freq: NEEDED Status: Active Protocol: Document 02/24/19 09:46 DLM (Rec: 02/24/19 12:31 DL [id number]) Physical Therapy Treatment Exercises Exercises Ankle Pumps Education Education Provided Safety Other Treatments Other Treatment Performed answered her question about home safety, discussed with pt and her Son about home equipment needs M7 PT-IP Assessment and Plan Start: 02/23/19 14:46 Freq: NEEDED Status: Active Protocol: Document 02/24/19 09:46 DLM (Rec: 02/24/19 12:31 DL [id number]) PT Summary Assessment and Plan Summary Impairments Pain ROM Strength Balance Transfers Gait Activity Tolerance Progress Towards Goals Progressing Toward Goals Assessment Summary Vianca is getting up to toilet with nursing. She continues to request use of FWW for gait for improved stability. She demonstrates good caution in functional use of left UE avoiding pushing and pulling. She was able to increase her distance of gait today with good tolerance. Continue to plan for discharge home. Goals Bed Mobility Goal Independent Transfer Goal Independent Gait Goal Independent Cane Gait Distance 150 feet Other Goals up and down 2 steps with cane and SBA Days to Meet Goals 3 Frequency of Treatment Frequency Of Treatment Twice a Day Treatment Plan Physical Therapy Treatment Plan Bed Mobility Training Transfer Training Gait Training Therapeutic Exercise Balance Retraining Discharge Planning Other Recommendations and Next Treatment assess for home assist device- Focus cane vs FWW vs none Recommendations To Nursing Amount of Assist Needed Standby Assistance Discharge Recommendations PT Discharge Recommendations Home with Assistance Other Discharge Recommendations she reports her friends will be in/out to assist, has supportive Son Equipment Needed for Home Before assess if needs cane or FWW Discharge for home
[2019-02-24 13:45] VITALS: BP 109/55; PULSE 75; RESP 18; TEMP 36.7; O2SAT 95
--- NOTE | 2019-02-24 15:20 | CM.DPNOTE ---
Met w/pt and her son Ascencion in today, had a lengthy conversation w/them about options for support in pt's home. Pt writes all information down in her notebook, she admits she has felt a little groggy and has not remembered all conversations since her surgery. Pt expects to DC back home tomorrow. Her son Ascencion lives in [place] but can come over to [place] when needed to assist w/chores, errands, etc. Pt is mostly indp at her baseline and has been getting around well w/therapy here. She understands the service and would appreciate a referral for RN/PT/OT/ROUSTABOUT HAND/[facility]. [facility] cares for her 94 yo mother, who lives alone in a duplex in [place]. Her mom is being looked after by her niece at this time. Pt understands some of the supportive services since her mother has needed them. Pt had questions about her status here in the hospital and also about her [place] coverage. This PYROTECHNICIAN shared the information available to the best of my ability and then referred pt to the appropriate resources for additional information; 1. Utilization review nurse as needed and 2. Resource Referral Center for Medicare/Secondary Ins questions. Pt appreciative. It is anticipated that pt will be ready to DC Monday, F2F still needs to be signed by Dr Sky. Following closely for coordination of safe DCP. BRY Hernandez
--- NOTE | 2019-02-24 15:36 | PT.IPTN ---
Current Diagnoses Malignant neoplasm of unspecified site of left female breast (02/22/19) Estrogen receptor positive status [ER+] (02/22/19) Surgery Performed Operation Date: 02/21/19 11:00 Actual Procedures p Mastectomy w/[place] Node Mapping/loc(Left) - Gareth Martin MD Operation Date: 02/22/19 16:00 Actual Procedures p Breast Evacuation of blot clots s/p Mastectomy 02-21-19(Left) - Gareth Martin MD Physical Therapy Treatment Note M2 PT-IP Current Condition Start: 02/23/19 14:46 Freq: NEEDED Status: Active Protocol: Document 02/23/19 14:34 DLM (Rec: 02/23/19 15:02 DLM [id number]) Physical Therapy Current Condition Current Condition Evaluation Date 02/23/19 Treatment Diagnosis impaired gait Onset Date 02/22/19 Precautions Other Precautions post-mastectomy on left M3 PT-IP Subjective Start: 02/23/19 14:46 Freq: NEEDED Status: Active Protocol: Document 02/24/19 15:36 DLM (Rec: 02/24/19 16:07 DL [id number]) Subjective Physical Therapy Visit Type Type Treatment Note Visit Start Time 15:00 Visit Stop Time 15:36 Total Visit Minutes 36 Number of PLAYBACK OPERATOR Visits 0 Physical Therapy Visit Comments Patient Comments She talked to her Son and they agree that a cane would be better for her to use at home instead of the FWW Therapy Pain Assessment Pain When Pain Assessed During Mobility Pain Present Pain Present Pain Reported Location Left Breast Intensity 5 Scale Used Numeric (1 - 10) Description Aching Pain Behaviors Guarding Pain Management Techniques Apply Cold Re-positioning M4 PT-IP Mobility and Gait Start: 02/23/19 14:46 Freq: NEEDED Status: Active Protocol: Document 02/24/19 15:36 DLM (Rec: 02/24/19 16:07 DLM [id number]) PT-Bed Mobility Assessment Rolling Type of Rolling Roll to Right Level of Assist Independent Supine to Sit Supine to Sit Independent Sit to Supine Sit to Supine Independent Scooting Scooting to Edge of Bed Independent PT-Transfer Assessment Sit to and From Stand Sit to and from Stand Independent Use of Upper Extremities Equipment Transfer Assistive Device Gait Belt Transfers Transfer Destination Bed Toilet Transfer Technique Stand Step Pivot Transfer Ability Level of Assist Standby Assistance Use of Upper Extremities Comments Mobility Comments pt up to toilet to urinate, drain still in place left chest area Gait Assessment Gait Gait Assistance Required: Standby Assistance Distance (Feet) 270 Assistive Devices Assistive Device Gait Belt Straight Cane Factors Limiting Gait Function Factors Limiting Gait Function Decreased Activity Tolerance Comments Gait Comments gait 2 x 270 feet each with seated rest between gait trials due to fatigue and mild shortness of breath. She demonstrates safe use of the cane, no losses of balance observed PT-Balance Assessment Sitting Balance and Reactions Static Sitting Balance Ability Normal Dynamic Sitting Balance Ability Normal Standing Balance and Reactions Static Standing Balance Ability Good Dynamic Standing Balance Ability Good Device Used Cane M5 PT-IP Objective Assessments Start: 02/23/19 14:46 Freq: NEEDED Status: Active Protocol: Document 02/23/19 14:34 DLM (Rec: 02/23/19 15:02 DL [id number]) Orientation Orientation/Cognition Level of Alertness Alert Orientation Name Age Birthday Month Date Year Day of Week Place Situation Language Function Ability No Deficits Noted Safety Awareness Understands Safety Issues Memory Description No Deficits Noted Comments she is fearful today Gross Range of Motion Upper Extremity ROM Assessment Left Impaired Impairments left UE limited by pain in breast area, functional for mobility Lower Extremity ROM Assessment Within Functional Limits Strength Upper Extremity Strength Assessment Left Impaired Shoulder limited by post-op precautions Elbow using functionally Hand good functional use Lower Extremity Strength Assessment Within Functional Limits Coordination Assessment Gross Coordination Gross Coordination WNL Sensation Assessment Sensation Gross Sensation WNL Muscle Tone Muscle Tone WNL Yes M6 PT-IP Treatment Start: 02/23/19 14:46 Freq: NEEDED Status: Active Protocol: Document 02/24/19 15:36 DLM (Rec: 02/24/19 16:07 [facility] [id number]) Physical Therapy Treatment Exercises Exercises Ankle Pumps Education Education Provided Safety Other Treatments Other Treatment Performed discussed home equipment issues with pt M7 PT-IP Assessment and Plan Start: 02/23/19 14:46 Freq: NEEDED Status: Active Protocol: Document 02/24/19 15:36 DLM (Rec: 02/24/19 16:07 [facility] [id number]) PT Summary Assessment and Plan Summary Impairments Pain ROM Strength Balance Transfers Gait Activity Tolerance Progress Towards Goals Progressing Toward Goals Assessment Summary Vianca continues to progress well. She has advanced to gait with st cane. She increased her distance of gait today. Continue to plan for home with support from friends/family. She demonstrates good understanding of post- mastectomy precautions of no pushing/pulling with left UE. Goals Transfer Goal Independent Gait Goal Independent Cane Gait Distance 150 feet Other Goals up and down 2 steps with cane and SBA Days to Meet Goals 2 Frequency of Treatment Frequency Of Treatment Twice a Day Treatment Plan Physical Therapy Treatment Plan Bed Mobility Training Transfer Training Gait Training Therapeutic Exercise Balance Retraining Discharge Planning Hot or Cold Pack Other Recommendations and Next Treatment gait training with cane in Focus right hand Recommendations To Nursing Amount of Assist Needed Standby Assistance Discharge Recommendations PT Discharge Recommendations Home with Assistance Other Discharge Recommendations she reports her friends will be in/out to assist, has supportive Son Equipment Needed for Home Before Cane Discharge
[2019-02-24 16:12] VITALS: BP 138/63; PULSE 76; RESP 18; TEMP 36.9; O2SAT 94
--- NOTE | 2019-02-24 19:50 | PC.NURSE ---
tulio shift assumed care of pt from outgoing shift at 1500 this day. PT awake and alert. worked with PT and walked in hallways using cane. Pt stated she preferred the cane, that she felt more mobile and free. Pt calls appropriately. Pt very appreciative of staff. Pt updated on plan of care for tulio shift. Pt compliant. pt getting lots of phone calls. taught drain management. will reiterate when able. Pt very pleasant lady. will continue to monitor. annalisa bandage intact across chest.
[2019-02-24 20:24] VITALS: BP 154/76; PULSE 85; RESP 20; TEMP 37.2; O2SAT 99
[2019-02-24] MEDS: SIMVASTATIN 40 MG TABLET PO (21:05)
[2019-02-24] MEDS: SERTRALINE 50 MG TABLET PO (21:05)
[2019-02-25] VITALS (7 sets, daily range): BP systolic 119–147; BP diastolic 49–74; PULSE 60–86; RESP 16–20; TEMP 36.2–37.7; O2SAT 94–97
--- NOTE | 2019-02-25 00:37 | PC.NURSE ---
Addendum entered by Farideh Chaves R.N. 02/25/19 05:58: States pain is again 6/10 so medicated with Percocet. Emptied an additional 30cc from drain this morning. Original Note: Addendum entered by Farideh Chaves R.N. 02/25/19 01:53: Medicated with Percocet for continued 6/10 pain. 20cc emptied from drain. Original Note: Patient is alert and oriented. Breath sounds CTA with RA sat of 96%. HRR. Denies nausea. BT present and is passing flatus. Dribbles urine so wears pull up; denies dysuria, frequency or urgency. Able to move self in bed. Is assisted when out of bed with 1 assist + device; reportedly does better with use of cane vs walker. Does complain of weakness in bilateral LE and left UE. Dressing with annalisa compression wrap to chest is CDI. Drain is intact and compressed. Bruising noted above dressing over both breasts and on medial left upper arm. States pain is 6/10 at shift change but had Percocet at 2100 and stated she was tolerating pain. Wearing bilateral calf SCD's. Fall risk score is moderate; bed alarm is activated.
[2019-02-25] MEDS: OXYCODONE/ACETAMINOPHEN 5/325 TABLET 1 TAB PO ×5 (01:51→23:33)
[2019-02-25] MEDS: MULTIVIT,CALC,MINS/IRON/FOLIC 1 TABLET 1 TAB PO (08:18)
[2019-02-25] MEDS: SODIUM CHLORIDE 0.9% FLUSH 10 ML IV ×2 (08:18→20:23)
--- NOTE | 2019-02-25 09:09 | PT.IPTN ---
Current Diagnoses Malignant neoplasm of unspecified site of left female breast (02/23/19) Estrogen receptor positive status [ER+] (02/23/19) Surgery Performed Operation Date: 02/21/19 11:00 Actual Procedures p Mastectomy w/[place] Node Mapping/loc(Left) - Gareth Martin MD Operation Date: 02/22/19 16:00 Actual Procedures p Breast Evacuation of blot clots s/p Mastectomy 02-21-19(Left) - Gareth Martin MD Physical Therapy Treatment Note M2 PT-IP Current Condition Start: 02/23/19 14:46 Freq: NEEDED Status: Active Protocol: Document 02/23/19 14:34 DLM (Rec: 02/23/19 15:02 DL [id number]) Physical Therapy Current Condition Current Condition Evaluation Date 02/23/19 Treatment Diagnosis impaired gait Onset Date 02/22/19 Precautions Other Precautions post-mastectomy on left M3 PT-IP Subjective Start: 02/23/19 14:46 Freq: NEEDED Status: Active Protocol: Document 02/25/19 09:08 [facility] (Rec: 02/25/19 09:09 [facility] [id number]) Subjective Physical Therapy Visit Type Type Patient Refusal Notes Pt refused, noting she was drowsy and painful and wanted to wait. M4 PT-IP Mobility and Gait Start: 02/23/19 14:46 Freq: NEEDED Status: Active Protocol: Document 02/24/19 15:36 DLM (Rec: 02/24/19 16:07 [facility] [id number]) PT-Bed Mobility Assessment Rolling Type of Rolling Roll to Right Level of Assist Independent Supine to Sit Supine to Sit Independent Sit to Supine Sit to Supine Independent Scooting Scooting to Edge of Bed Independent PT-Transfer Assessment Sit to and From Stand Sit to and from Stand Independent Use of Upper Extremities Equipment Transfer Assistive Device Gait Belt Transfers Transfer Destination Bed Toilet Transfer Technique Stand Step Pivot Transfer Ability Level of Assist Standby Assistance Use of Upper Extremities Comments Mobility Comments pt up to toilet to urinate, drain still in place left chest area Gait Assessment Gait Gait Assistance Required: Standby Assistance Distance (Feet) 270 Assistive Devices Assistive Device Gait Belt Straight Cane Factors Limiting Gait Function Factors Limiting Gait Function Decreased Activity Tolerance Comments Gait Comments gait 2 x 270 feet each with seated rest between gait trials due to fatigue and mild shortness of breath. She demonstrates safe use of the cane, no losses of balance observed PT-Balance Assessment Sitting Balance and Reactions Static Sitting Balance Ability Normal Dynamic Sitting Balance Ability Normal Standing Balance and Reactions Static Standing Balance Ability Good Dynamic Standing Balance Ability Good Device Used Cane M5 PT-IP Objective Assessments Start: 02/23/19 14:46 Freq: NEEDED Status: Active Protocol: Document 02/23/19 14:34 DLM (Rec: 02/23/19 15:02 DLM [id number]) Orientation Orientation/Cognition Level of Alertness Alert Orientation Name Age Birthday Month Date Year Day of Week Place Situation Language Function Ability No Deficits Noted Safety Awareness Understands Safety Issues Memory Description No Deficits Noted Comments she is fearful today Gross Range of Motion Upper Extremity ROM Assessment Left Impaired Impairments left UE limited by pain in breast area, functional for mobility Lower Extremity ROM Assessment Within Functional Limits Strength Upper Extremity Strength Assessment Left Impaired Shoulder limited by post-op precautions Elbow using functionally Hand good functional use Lower Extremity Strength Assessment Within Functional Limits Coordination Assessment Gross Coordination Gross Coordination WNL Sensation Assessment Sensation Gross Sensation WNL Muscle Tone Muscle Tone WNL Yes M6 PT-IP Treatment Start: 02/23/19 14:46 Freq: NEEDED Status: Active Protocol: Document 02/24/19 15:36 DLM (Rec: 02/24/19 16:07 DLM [id number]) Physical Therapy Treatment Exercises Exercises Ankle Pumps Education Education Provided Safety Other Treatments Other Treatment Performed discussed home equipment issues with pt M7 PT-IP Assessment and Plan Start: 02/23/19 14:46 Freq: NEEDED Status: Active Protocol: Document 02/24/19 15:36 DLM (Rec: 02/24/19 16:07 DLM [id number]) PT Summary Assessment and Plan Summary Impairments Pain ROM Strength Balance Transfers Gait Activity Tolerance Progress Towards Goals Progressing Toward Goals Assessment Summary Vianca continues to progress well. She has advanced to gait with st cane. She increased her distance of gait today. Continue to plan for home with support from friends/family. She demonstrates good understanding of post- mastectomy precautions of no pushing/pulling with left UE. Goals Transfer Goal Independent Gait Goal Independent Cane Gait Distance 150 feet Other Goals up and down 2 steps with cane and SBA Days to Meet Goals 2 Frequency of Treatment Frequency Of Treatment Twice a Day Treatment Plan Physical Therapy Treatment Plan Bed Mobility Training Transfer Training Gait Training Therapeutic Exercise Balance Retraining Discharge Planning Hot or Cold Pack Other Recommendations and Next Treatment gait training with cane in Focus right hand Recommendations To Nursing Amount of Assist Needed Standby Assistance Discharge Recommendations PT Discharge Recommendations Home with Assistance Other Discharge Recommendations she reports her friends will be in/out to assist, has supportive Son Equipment Needed for Home Before Cane Discharge
--- NOTE | 2019-02-25 10:06 | PM.PN.1 ---
Subjective Date Patient Seen: 02/25/19 Time Patient Seen: 10:07 Interval history: Patient is 3 days post mastectomy and then re-evacuation or reoperation for postoperative hematoma formation in the mastectomy site. subjectively she has a developing more feeling in the incision. She feels very sleepy and weak today. Otherwise no changes. Exam Vital Signs (past 8 hours): - 02/25/19 02:59 02/25/19 07:49 Temperature 97.8 F 99.1 F Pulse Rate 79 60 Respiratory Rate 19 16 Blood Pressure 145/56 H 119/51 L Pulse Oximetry 97 94 Oxygen Delivery Method Room Air Oxygen Flow Rate 0 Narrative Exam Narrative: Vital signs are stable she is alert and oriented however feels tired. Dressing is dry and intact Ciro drain is producing serosanguineous fluid 180 cc yesterday. Objective Labs Result Diagrams: 02/23/19 06:03 Assessment & Plan Assessment & Plan narrative: Patient is recovering from mastectomy and re-operation for evacuation of wound hematoma. She does feel weak today I will reassess her hemoglobin which post wound evacuation was 10.6. She will have a CBC done today. She is stable. Possibly able to be discharged tomorrow after she is seen by her surgeon.
--- NOTE | 2019-02-25 10:09 | P.PN_ITS ---
Subjective Date Patient Seen: 02/25/19 Time Patient Seen: 10:07 Interval history: Patient is 3 days post mastectomy and then re-evacuation or reoperation for postoperative hematoma formation in the mastectomy site. subjectively she has a developing more feeling in the incision. She feels very sleepy and weak today. Otherwise no changes. Exam Vital Signs (past 8 hours): - 02/25/19 02:59 02/25/19 07:49 Temperature 97.8 F 99.1 F Pulse Rate 79 60 Respiratory Rate 19 16 Blood Pressure 145/56 H 119/51 L Pulse Oximetry 97 94 Oxygen Delivery Method Room Air Oxygen Flow Rate 0 Narrative Exam Narrative: Vital signs are stable she is alert and oriented however feels tired. Dressing is dry and intact Ciro drain is producing serosanguineous fluid 180 cc yesterday. Objective Labs Result Diagrams: 02/23/19 06:03 Assessment & Plan Assessment & Plan narrative: Patient is recovering from mastectomy and re- operation for evacuation of wound hematoma. She does feel weak today I will reassess her hemoglobin which post wound evacuation was 10.6. She will have a CBC done today. She is stable. Possibly able to be discharged tomorrow after she is seen by her surgeon.
[2019-02-25 12:07] LABS: Add Manual Diff / Slide Review NO; Basophils Absolute Auto 100 /uL (0-100); Basophils Percent Auto 0.7 % (0-2); Eosinophils Absolute Auto 500 /uL (0-450); Eosinophils Percent Auto 4.7 % (2-4); Hematocrit 24.5 % (36-46); Hemoglobin 8.1 g/dL (12.0-16.0); Lymphocytes Absolute Auto 3300 /uL (1100-4500); Lymphocytes Percent Auto 34.3 % (25-40); Mean Corpuscular HGB Conc 33.1 % (30-36); Mean Corpuscular Hemoglobin 30.4 PG (26-34); Mean Corpuscular Volume 91.9 fL (80-100); Monocytes Absolute Auto 700 /uL (0-900); Monocytes Percent Auto 6.7 % (3-14); Neutrophils Absolute Auto 5200 /uL (1500-7000); Neutrophils Percent Auto 53.6 % (50-75); Platelet Count 192 X10^3/uL (150-400); Red Blood Cell Count 2.67 X10^6/uL (4.0-5.2); Red Cell Distribution Width 14.7 % (11.6-14.8); White Blood Cell Count 9.8 X10^3/uL (4.5-11.0)
--- NOTE | 2019-02-25 14:23 | PC.NURSE ---
Day Shift Called spoke with dr Daniels received VTO ok to leave current IV in place and CBC for tomorrow am.
--- NOTE | 2019-02-25 14:59 | PT.IPTN ---
Current Diagnoses Malignant neoplasm of unspecified site of left female breast (02/23/19) Estrogen receptor positive status [ER+] (02/23/19) Surgery Performed Operation Date: 02/21/19 11:00 Actual Procedures p Mastectomy w/[place] Node Mapping/loc(Left) - Gareth Martin MD Operation Date: 02/22/19 16:00 Actual Procedures p Breast Evacuation of blood clots s/p Mastectomy 02-21-19(Left) - Gareth Martin MD Physical Therapy Treatment Note M2 PT-IP Current Condition Start: 02/23/19 14:46 Freq: NEEDED Status: Active Protocol: Document 02/23/19 14:34 DLM (Rec: 02/23/19 15:02 DLM [id number]) Physical Therapy Current Condition Current Condition Evaluation Date 02/23/19 Treatment Diagnosis impaired gait Onset Date 02/22/19 Precautions Other Precautions post-mastectomy on left M3 PT-IP Subjective Start: 02/23/19 14:46 Freq: NEEDED Status: Active Protocol: Document 02/25/19 14:15 LJ (Rec: 02/25/19 14:59 LJ [id number]) Subjective Physical Therapy Visit Type Type Treatment Note Visit Start Time 14:15 Visit Stop Time 14:50 Total Visit Minutes 35 Notes Pt in bed wanting to get up Physical Therapy Visit Comments Patient Comments Needs to air out and get some fresh air Therapy Pain Assessment Pain When Pain Assessed During Mobility Pain Present Pain Present Pain Reported Location Left Breast Intensity 4 Scale Used Numeric (1 - 10) Description Aching Pain Behaviors Guarding Pain Management Techniques Apply Cold Re-positioning M4 PT-IP Mobility and Gait Start: 02/23/19 14:46 Freq: NEEDED Status: Active Protocol: Document 02/25/19 14:15 LJ (Rec: 02/25/19 14:59 LJ [id number]) PT-Bed Mobility Assessment Rolling Type of Rolling Roll to Right Level of Assist Independent Supine to Sit Supine to Sit Independent Sit to Supine Sit to Supine Independent Scooting Scooting to Edge of Bed Independent PT-Transfer Assessment Sit to and From Stand Sit to and from Stand Independent Use of Upper Extremities Equipment Transfer Assistive Device Gait Belt Transfers Transfer Destination Chair Transfer Technique Stand Step Pivot Transfer Ability Level of Assist Standby Assistance Comments Mobility Comments Pt indeppendent with bed mobility and transfers. Gait Assessment Gait Distance (Feet) 400 Assistive Devices Assistive Device Gait Belt Straight Cane Factors Limiting Gait Function Factors Limiting Gait Function Decreased Activity Tolerance Comments Gait Comments ~400' ambulation in hallway with one standing rest break for < 1 minute. Pt fatigued after walk M5 PT-IP Objective Assessments Start: 02/23/19 14:46 Freq: NEEDED Status: Active Protocol: Document 02/23/19 14:34 DLM (Rec: 02/23/19 15:02 DLM [id number]) Orientation Orientation/Cognition Level of Alertness Alert Orientation Name Age Birthday Month Date Year Day of Week Place Situation Language Function Ability No Deficits Noted Safety Awareness Understands Safety Issues Memory Description No Deficits Noted Comments she is fearful today Gross Range of Motion Upper Extremity ROM Assessment Left Impaired Impairments left UE limited by pain in breast area, functional for mobility Lower Extremity ROM Assessment Within Functional Limits Strength Upper Extremity Strength Assessment Left Impaired Shoulder limited by post-op precautions Elbow using functionally Hand good functional use Lower Extremity Strength Assessment Within Functional Limits Coordination Assessment Gross Coordination Gross Coordination WNL Sensation Assessment Sensation Gross Sensation WNL Muscle Tone Muscle Tone WNL Yes M6 PT-IP Treatment Start: 02/23/19 14:46 Freq: NEEDED Status: Active Protocol: Document 02/25/19 14:15 LJ (Rec: 02/25/19 14:59 LJ [id number]) Physical Therapy Treatment Education Education Provided Safety Other Treatments Other Treatment Performed discussed use of cane and importance of keeping it in front and lifting to clear the floor rather than dragging it M7 PT-IP Assessment and Plan Start: 02/23/19 14:46 Freq: NEEDED Status: Active Protocol: Document 02/25/19 14:15 LJ (Rec: 02/25/19 14:59 LJ [id number]) PT Summary Assessment and Plan Potential Rehabilitation Potential Good Status of Condition at Evaluation Evolving Summary Impairments Pain ROM Strength Balance Transfers Gait Activity Tolerance Progress Towards Goals Progressing Toward Goals Assessment Summary Vianca continues to progress well. She has advanced to gait with st cane. She increased her distance of gait today. Continue to plan for home with support from friends/family. She demonstrates good understanding of post- mastectomy precautions of no pushing/pulling with left UE. Goals Transfer Goal Independent Gait Goal Independent Cane Gait Distance 150 feet Other Goals up and down 2 steps with cane and SBA Days to Meet Goals 2 Frequency of Treatment Frequency Of Treatment Twice a Day Treatment Plan Physical Therapy Treatment Plan Bed Mobility Training Transfer Training Gait Training Therapeutic Exercise Balance Retraining Discharge Planning Hot or Cold Pack Other Recommendations and Next Treatment gait training with cane in Focus right hand Recommendations To Nursing Amount of Assist Needed 1 Person Assist Discharge Recommendations PT Discharge Recommendations Home with Assistance Other Discharge Recommendations she reports her friends will be in/out to assist, has supportive Son Equipment Needed for Home Before Cane Discharge
--- NOTE | 2019-02-25 16:08 | PC.NURSE ---
Addendum entered by Lucy Rivas R.N. 02/25/19 22:39: Pt resting quietly at intervals. Dsg CDI w/annalisa wrap. HL intact/patent. Med @ 1840 for discomfort w/relief. Call light w/in reach, bed alrm on for pt safety. Continue w/plan of care. Original Note: Pt sitting in chair, Lungs clear, SpO2 97% RA. Dsg to left chest CDI w/ice in place. Some bruising on chest noted. Saul drain intact/ patent Call light w/in reach, Pt calls appropriately for needs.
[2019-02-25] MEDS: SERTRALINE 50 MG TABLET PO (20:22)
[2019-02-25] MEDS: SIMVASTATIN 40 MG TABLET PO (20:23)
--- NOTE | 2019-02-25 23:50 | PC.NURSE ---
Addendum entered by Farideh Chaves R.N. 02/26/19 06:21: When asked if she needed pain medication patient stated I guess, if it's time. Asked about severity of pain and she again states it is 6/10. When asked what pain level is at it's best patient again states 6/10. Attempted to verify so asked patient if pain is 6/10 regardless of whether she takes pain meds or not she states well it always hurts. Reinstructed on pain scale so patient changed severity to 5/10. Medicated with Percocet. Original Note: Patient is alert and oriented. Breath sounds CTA with RA sat of 95%. HRR. Denies nausea. BT present and is passing flatus. Dribbles urine and has some urinary urgency both of which are chronic; wearing pull up. Able to move self in bed. Due to weakness uses walker/cane and 1 assist when getting out of bed. Puneet compression wrap over left chest dressing is without drainage; YENIFER is intact and compressed with serosanguinous drainage in bulb. Bruising noted above puneet on bilateral chest and on medial left arm. States pain is currently 6/10 so medicated with Percocet and has ice pack to chest. Bilateral SCD's applied at shift change. Fall risk score is moderate; bed alarm is activatd.
[2019-02-26] MEDS: OXYCODONE/ACETAMINOPHEN 5/325 TABLET 1 TAB PO ×3 (06:21→18:17)
[2019-02-26 06:24] LABS: Add Manual Diff / Slide Review NO; Basophils Absolute Auto 100 /uL (0-100); Basophils Percent Auto 0.9 % (0-2); Eosinophils Absolute Auto 500 /uL (0-450); Eosinophils Percent Auto 6.2 % (2-4); Hematocrit 24.9 % (36-46); Hemoglobin 8.3 g/dL (12.0-16.0); Lymphocytes Absolute Auto 3300 /uL (1100-4500); Mean Corpuscular HGB Conc 33.5 % (30-36); Mean Corpuscular Hemoglobin 30.5 PG (26-34); Mean Corpuscular Volume 91.1 fL (80-100); Monocytes Absolute Auto 500 /uL (0-900); Monocytes Percent Auto 6.2 % (3-14); Neutrophils Absolute Auto 4200 /uL (1500-7000); Neutrophils Percent Auto 48.7 % (50-75); Platelet Count 206 X10^3/uL (150-400); Red Blood Cell Count 2.73 X10^6/uL (4.0-5.2); Red Cell Distribution Width 14.6 % (11.6-14.8); White Blood Cell Count 8.6 X10^3/uL (4.5-11.0)
[2019-02-26 06:43] VITALS: BP 142/86; PULSE 85; RESP 16; TEMP 36.6; O2SAT 96
[2019-02-26 08:15] VITALS: BP 145/60; PULSE 70; RESP 18; TEMP 36.4; O2SAT 92
[2019-02-26] MEDS: MULTIVIT,CALC,MINS/IRON/FOLIC 1 TABLET 1 TAB PO (09:46)
[2019-02-26] MEDS: SODIUM CHLORIDE 0.9% FLUSH 10 ML IV (09:47)
[2019-02-26] MEDS: POLYETHYLENE GLYCOL 3350 17 GM POWD.PACK PO (09:47)
--- NOTE | 2019-02-26 11:15 | PT.IPTN ---
Current Diagnoses Malignant neoplasm of unspecified site of left female breast (02/23/19) Estrogen receptor positive status [ER+] (02/23/19) Surgery Performed Operation Date: 02/21/19 11:00 Actual Procedures p Mastectomy w/[place] Node Mapping/loc(Left) - Gareth Martin MD Operation Date: 02/22/19 16:00 Actual Procedures p Breast Evacuation of blood clots s/p Mastectomy 02-21-19(Left) - Gareth Martin MD Physical Therapy Treatment Note M2 PT-IP Current Condition Start: 02/23/19 14:46 Freq: NEEDED Status: Active Protocol: Document 02/23/19 14:34 DLM (Rec: 02/23/19 15:02 DLM [id number]) Physical Therapy Current Condition Current Condition Evaluation Date 02/23/19 Treatment Diagnosis impaired gait Onset Date 02/22/19 Precautions Other Precautions post-mastectomy on left M3 PT-IP Subjective Start: 02/23/19 14:46 Freq: NEEDED Status: Active Protocol: Document 02/26/19 11:15 GGD (Rec: 02/26/19 12:13 GGD [id number]) Subjective Physical Therapy Visit Type Type Treatment Note Visit Start Time 10:45 Visit Stop Time 11:15 Total Visit Minutes 30 Number of ASSISTANT SPA DIRECTOR Visits 1 Physical Therapy Visit Comments Patient Comments Pt states she is sleepy. Therapy Pain Assessment Pain When Pain Assessed During Mobility Pain Present Pain Present Pain Reported M4 PT-IP Mobility and Gait Start: 02/23/19 14:46 Freq: NEEDED Status: Active Protocol: Document 02/26/19 11:15 GGD (Rec: 02/26/19 12:13 GGD [id number]) PT-Bed Mobility Assessment Rolling Type of Rolling Roll to Right Level of Assist Independent Supine to Sit Supine to Sit Independent Sit to Supine Sit to Supine Independent Scooting Scooting to Edge of Bed Independent PT-Transfer Assessment Sit to and From Stand Sit to and from Stand Independent Use of Upper Extremities Equipment Transfer Assistive Device Gait Belt Transfers Transfer Destination Chair Transfer Ability Level of Assist Standby Assistance Gait Assessment Gait Gait Assistance Required: Standby Assistance Distance (Feet) 250 Assistive Devices Assistive Device None Gait Belt Factors Limiting Gait Function Factors Limiting Gait Function Decreased Activity Tolerance Pain Stair Climbing Assessment Evaluation Level of Assist On Stairs Standby Assistance Devices Stair Climbing Assistive Devices None Technique/Endurance Stair Climbing Direction Ascend and Descend Stair Climbing Technique Step to Step Number of Steps Climbed 3 Query Text: Stair Climbing Set # Repetitions (reps) 1 M5 PT-IP Objective Assessments Start: 02/23/19 14:46 Freq: NEEDED Status: Active Protocol: Document 02/23/19 14:34 DLM (Rec: 02/23/19 15:02 DLM [id number]) Orientation Orientation/Cognition Level of Alertness Alert Orientation Name Age Birthday Month Date Year Day of Week Place Situation Language Function Ability No Deficits Noted Safety Awareness Understands Safety Issues Memory Description No Deficits Noted Comments she is fearful today Gross Range of Motion Upper Extremity ROM Assessment Left Impaired Impairments left UE limited by pain in breast area, functional for mobility Lower Extremity ROM Assessment Within Functional Limits Strength Upper Extremity Strength Assessment Left Impaired Shoulder limited by post-op precautions Elbow using functionally Hand good functional use Lower Extremity Strength Assessment Within Functional Limits Coordination Assessment Gross Coordination Gross Coordination WNL Sensation Assessment Sensation Gross Sensation WNL Muscle Tone Muscle Tone WNL Yes M6 PT-IP Treatment Start: 02/23/19 14:46 Freq: NEEDED Status: Active Protocol: Document 02/26/19 11:15 GGD (Rec: 02/26/19 12:13 GGD [id number]) Physical Therapy Treatment Education Education Provided Precautions Safety M7 PT-IP Assessment and Plan Start: 02/23/19 14:46 Freq: NEEDED Status: Active Protocol: Document 02/26/19 11:15 GGD (Rec: 02/26/19 12:13 GGD [id number]) PT Summary Assessment and Plan Summary Assessment Summary Pt improving with mobility. She was able to progress gait to without assistive. She was safe and stable with stair mobility. Frequency of Treatment Frequency Of Treatment Once a Day Treatment Plan Physical Therapy Treatment Plan Bed Mobility Training Transfer Training Gait Training Therapeutic Exercise Balance Retraining Discharge Planning Hot or Cold Pack Other Recommendations and Next Treatment gait training with cane in Focus right hand Recommendations To Nursing Amount of Assist Needed 1 Person Assist Discharge Recommendations PT Discharge Recommendations Home with Assistance Other Discharge Recommendations she reports her friends will be in/out to assist, has supportive Son
--- NOTE | 2019-02-26 13:03 | CM.DPC ---
Addendum entered by BRY Chang 02/26/19 15:22: ADD: D/C summary still not available yet and SW may need to follow in the morning to fax this to [facility] if d/c summary not available by end of shift today. [facility] aware and have Mely, MD hero orders. Just waiting for d/c summary. BF Original Note: DCP Cont: Per RN, pt having some worries and concerns about discharging home alone although she has local supportive son/family. Surgeon still needs to round on the pt and SW placed F2F on pt chart and discussed the need for MD signature with RN in order to set up HH at d/c. SW called [facility] and they have not received new referral for pt so SW faxed clinicals to review and called [facility] liaison, with new referral and confirmed that pt's [facility] covers HH at 100% per pt's concerns with out of pocket expense. Jessica requesting more detailed instructions for pt's wound care and drain prior to d/c. SW discussed this with RN who will help to obtain this from the surgeon today. JASON met bedside with pt and explained role and pt aware that she may be stable for d/c home today pending Surgeon recommendations. JASON discussed HH in detail again and updated that [facility] covered at 100% and pt very appreciative and thankful to have the additional support from HH at d/c. Dr. Martin met bedside with pt and feels pt is stable for d/c home with HH today. signed F2F and wrote orders for discharge and RN updated him on the need for more specific wound and drain care for d/c. JASON faxed MD Mely orders and d/c summary to [facility] to review along with the more detailed instructions. Plan: Patient to d/c home today via family POV and [facility] to follow. BRY Chang
--- NOTE | 2019-02-26 13:48 | PC.NURSE ---
Addendum entered by Nehal Ronquillo R.N. 02/26/19 15:46: Pt went to shower with RELOCATION COMMISSIONER assist. Left chest dressing removed per Dr. Martin. Incision well approximated with steri-strips intact. Dressing around YENIFER removed as well, suture intact. After shower, this senior writer cleansed Incision with NS, pat dry, sterile. Approved by Dr. Martin, gauze and tegaderm placed. Dressing change as needed, next should be at post operative appointment on Monday. Instructed pt on cleaning and performing dressing change to YENIFER drain. Area cleansed with sterile q-tip and gauze with NS. Pat dry, 4 4X4 folded gauzes placed under and over tube site, secured with paper tape. Instructed to change daily at home. Original Note: Day Shift- Dr. Martin in to see pt around 1250. Discharge orders rec'd. Pt wants to discharge after dinner. Left chest dressing of gauze and tegaderm CDI. Yenifer teaching done, this senior writer demonstrated on proper use to emptying. Pt able to verbalize and properly demonstrate 2X how to empty and record. Pt feels she is comfortable in doing this at home.
[2019-02-26 13:55] VITALS: BP 148/66; PULSE 84; RESP 18; TEMP 36.8; O2SAT 97
[2019-02-26 16:06] VITALS: BP 142/54; PULSE 78; RESP 16; TEMP 36.7; O2SAT 94
--- NOTE | 2019-02-26 16:57 | PC.NURSE ---
Addendum entered by Angela Calabrese R.N. 02/26/19 18:45: 1840- Pt given all documentation, teaching, and Rx. IV removed AM shift, YENIFER drained with 25mL out, VSS. All belongings with pt and friend, who is driving pt home. Pt sent by DOOR GLASS INSTALLER in wheelchair to exit. Original Note: Pt up to BRP SBA to void, then up in bed to eat dinner. VSS, 96%RA, R hand SL. Orders are to DC after dinner aprox 6pm. Drsg to left breast changed by VICKEY Calvert right at shift change. Pt observed with a mirrow as to self change drsg at home. Percocet 1 tab given @ 1730, for pain 04/05.
--- NOTE | 2019-02-26 18:07 | PM.DS.1 ---
History of Present Illness Date Patient Seen: 02/26/19 Time Patient Seen: 10:07 Chief complaint: Left Breast Mastectomy Narrative: The patient is a woman admitted for surgical treatment of left-sided breast cancer. She had opted to undergo a mastectomy and sentinel node biopsy. MRI was performed prior to the operation and showed 2 distinct lesions in the left breast that were worrisome for malignancy. One of these had been biopsied and was a proven cancer. Discharge Providers Date of admission: 02/23/19 14:30 Discharge Date: 02/26/19 Primary care physician: Kendra Espitia DO Consults: 02/21/19 15:51 Consult to Discharge Planning Routine Comment: 02/23/19 09:46 Consult to Physical Therapy Evaluate & Treat Comment: ambulate Physician Instructions: Evaluate and Treat 02/26/19 14:59 Consult to Home Health Routine Comment: Left Breast Mastectomy Reason For Exam: Set up HH RN/PT/OT/LEGAL RECORDS CLERK for discharge 02/26/19 Discharge provider: Gareth Martin MD Summary Discharge Diagnosis: Breast cancer. Path is pending. Postoperative hemorrhage into wound. Acute blood loss anemia secondary to postoperative hemorrhage. Hospital Course: The patient underwent a mastectomy and sentinel node biopsy. The evening after the operation the patient was checked and seemed to be doing fine. However the following day she had a large hematoma under her flaps. She was taken back to the operating room in the the hematoma was evacuated. After that her Medicare dropped to as low as 24. She stabilized. There was no further fluid accumulation under the flap. She was discharged with her drain intact and understanding of how to care for it. I will see her back this Monday in the office. She was advised to take a multiple vitamin with iron. She was sent home with Percocet for pain. She was to resume her other medications. Status at Discharge Cognitive/behavioral status at discharge: oriented and calm Functional status at discharge: independent ambulation Overall status at discharge: patient is progressing back to baseline Exam Vital Signs (past 8 hours): - 02/26/19 13:55 02/26/19 16:06 Temperature 98.2 F 98.1 F Pulse Rate 84 78 Respiratory Rate 18 16 Blood Pressure 148/66 H 142/54 H Pulse Oximetry 97 94 Oxygen Delivery Method Room Air Oxygen Flow Rate 0 Objective Labs Result Diagrams: 02/26/19 05:58 Labs: Laboratory Results - last 24 hr 02/26/19 05:58 WBC 8.6 RBC 2.73 L Hgb 8.3 L Hct 24.9 L MCV 91.1 MCH 30.5 MCHC 33.5 RDW 14.6 Plt Count 206 Neut % (Auto) 48.7 L Lymph % (Auto) 38.0 [place] % (Auto) 6.2 Eos % (Auto) 6.2 H Baso % (Auto) 0.9 Neut # (Auto) 4200 Lymph # (Auto) 3300 [place] # (Auto) 500 Eos # (Auto) 500 H Baso # (Auto) 100 Discharge Plan Discharge Plan Patient Disposition: Home Discharge Med Rec/Prescriptions Prescriptions: New oxycodone-acetaminophen [Percocet] 5-325 mg tablet 1 tab PO Q4-6H PRN (Reason: painful procedure) Qty: 20 RF: 0 Continued L.acidoph-B.lactis-B.longum [Florajen3] 460 mg (7.5-6- 1.5 bill. cell) capsule 1 cap PO .QDAY RF: 0 LACTAID 1 cap PO ONCE PRN (Reason: Lactose Intolerance) RF: 0 Flaxseed Oil 1,000 mg PO DAILY RF: 0 multivitamin [Multiple Vitamins] 1 EACH tablet 1 tab PO QDAY Qty: 0 RF: 0 sertraline 50 mg tablet 50 mg PO QDAY Qty: 30 RF: 3 rosuvastatin [Crestor] 10 mg tablet 10 mg PO DAILY Qty: 30 RF: 5 diazepam [Valium] 5 mg tablet See Rx Instructions PO ONCE PRN (Reason: anxiety) Qty: 2 RF: 0 Follow up/Referrals: Gareth Martin MD [Physician] - 03/01/19 2:45 pm (If you need to reach a doctor after hours please call our office and hold until the page in tool grinder operator picks up.) Kendra Espitia DO [Primary Care Provider] - Provider Discharge Instructions Activity: You shoulder exercises at least 4 times a day that were shown to you by Dr. Martin. It is very important to keep her shoulder moving. Skin/Wound/Dressing Care Report to your healthcare provider any signs of infection, such as:: increased pain, unusual drainage and unusual redness Dressing: Empty and record the drainage 2 or 3 times a day. Other wound treatment: Home health ordered to evaluate year wound and to assist in wound care and drain care. Dressing on your incision is not absolutely necessary. However leave the tape that is directly on top of your skin under the gauze alone. Visit Report/Discharge Packet Instructions: DI for Mastectomy, DI for Ciro-Ortega Drains, How to Use and Care for Your Ciro-Ortega Drain, How to Prevent Falls, DI for Postoperative Pain, [facility]: Wound Care Discharge Data Primary Care Provider: Kendra Espitia Attending Provider: Gareth Martin Admteo Date/Time: 02/23/19 14:30
--- NOTE | 2019-02-27 09:18 | CM.DPC ---
DCP Cont: Faxed Discharge Summary to [facility] at fax # [phone]. Fax confirmation scanned in. Rima Pfeiffer, Care Compo Caster
== END 2019-02-26 18:45 | disposition home or self-care (01) | DRG 908 ==
LOC: OR 15:09
PROVIDERS: Surgery; Admitting Provider Specialist; PCP Family Medicine; Visit Provider Specialist
PROC: 0HTU0ZZ Resection of Left Breast, Open Approach (ICD-10-PCS; principal; 2019-02-21 11:00)
PROC: 0HC5XZZ Extirpation of Matter from Chest Skin, External Approach (ICD-10-PCS; CPT 19301; principal; 2019-02-22 16:00)
DX: N99.840 Postprocedural hematoma of a genitourinary system organ or structure following a genitourinary system procedure (principal); D62 Acute posthemorrhagic anemia; C50.912 Malignant neoplasm of unspecified site of left female breast; F32.9 Major depressive disorder, single episode, unspecified; E78.5 Hyperlipidemia, unspecified; I10 Essential (primary) hypertension; F41.9 Anxiety disorder, unspecified
CPT/HCPCS: 19303; 36415; 38505; 78195; 85025; 94760; 97116; 97162; 97530; A9541; G0378; J0131; J0690; J1100; J1170; J2250; J2405; J2704; J3010

== ENCOUNTER → 2019-03-04 15:22 | Outpatient (CLI) | payer OTHER, SELFPAY ==
[2019-02-21 16:06] VITALS: BMI 37.4
[2019-03-04 16:09] LABS: Hematocrit 29.9 % (36-46); Hemoglobin 10.2 g/dL (12.0-16.0); Mean Corpuscular HGB Conc 34.1 % (30-36); Mean Corpuscular Hemoglobin 30.8 PG (26-34); Mean Corpuscular Volume 90.4 fL (80-100); Platelet Count 348 X10^3/uL (150-400); Red Blood Cell Count 3.31 X10^6/uL (4.0-5.2); Red Cell Distribution Width 15.1 % (11.6-14.8)
== END ==
PROVIDERS: PCP Family Medicine; Visit Provider Family Medicine
DX: D64.9 Anemia, unspecified (principal)
CPT/HCPCS: 36415; 85027

== ENCOUNTER → 2019-03-19 14:33 | Outpatient (CLI) | payer OTHER, SELFPAY ==
[2019-02-21 16:06] VITALS: BMI 37.4
== END ==
PROVIDERS: PCP Family Medicine
DX: M85.88 Other specified disorders of bone density and structure, other site (principal); Z78.0 Asymptomatic menopausal state; C50.919 Malignant neoplasm of unspecified site of unspecified female breast; Z79.811 Long term (current) use of aromatase inhibitors; Z82.62 Family history of osteoporosis
CPT/HCPCS: 77080

== ENCOUNTER → 2019-05-20 16:33 | Outpatient (CLI) | payer OTHER, SELFPAY ==
[2019-02-21 16:06] VITALS: BMI 37.4
[2019-05-20 17:52] LABS: Add Manual Diff / Slide Review NO
[2019-05-20 18:12] LABS: HEMOLYSIS 47 (0-50); Iron 120 ug/dL (37-170)
[2019-05-20 18:23] LABS: Percent Iron Saturation 30 % (15-50); Total Iron Binding Capacity 401 ug/dL (265-497); Transferrin 326 mg/dL (206-381)
[2019-05-20 18:50] LABS: Ferritin 25.8 ng/mL (11.1-264)
== END ==
PROVIDERS: Family Provider Family Medicine; PCP Family Medicine; Visit Provider Family Medicine
DX: D64.9 Anemia, unspecified (principal)
CPT/HCPCS: 36415; 82728; 83540; 83550; 85025

== ENCOUNTER → 2019-05-21 15:28 | Outpatient (CLI) | payer OTHER, SELFPAY ==
[2019-02-21 16:06] VITALS: BMI 37.4
[2019-05-21 15:49] LABS: Add Manual Diff / Slide Review NO; Basophils Absolute Auto 100 /uL (0-100); Basophils Percent Auto 1.5 % (0-2); Eosinophils Absolute Auto 300 /uL (0-450); Eosinophils Percent Auto 3.9 % (2-4); Hematocrit 39.4 % (36-46); Hemoglobin 13.1 g/dL (12.0-16.0); Lymphocytes Absolute Auto 2000 /uL (1100-4500); Lymphocytes Percent Auto 26.3 % (25-40); Mean Corpuscular HGB Conc 33.2 % (30-36); Mean Corpuscular Hemoglobin 29.5 PG (26-34); Mean Corpuscular Volume 88.9 fL (80-100); Monocytes Absolute Auto 500 /uL (0-900); Monocytes Percent Auto 6.4 % (3-14); Neutrophils Absolute Auto 4600 /uL (1500-7000); Neutrophils Percent Auto 61.9 % (50-75); Platelet Count 229 X10^3/uL (150-400); Red Blood Cell Count 4.43 X10^6/uL (4.0-5.2); Red Cell Distribution Width 14.5 % (11.6-14.8); White Blood Cell Count 7.5 X10^3/uL (4.5-11.0)
== END ==
PROVIDERS: Family Provider Family Medicine; PCP Family Medicine; Visit Provider Family Medicine
DX: Z86.39 Personal history of other endocrine, nutritional and metabolic disease (principal)
CPT/HCPCS: 85025

== ENCOUNTER → 2019-08-04 16:20 | Outpatient (CLI) | payer OTHER, SELFPAY ==
[2019-02-21 16:06] VITALS: BMI 37.4
--- NOTE | 2019-08-04 16:23 | DI.RAD.S_ITS ---
PROCEDURE: XR CERVICAL SPINE 2V OR 3V INDICATIONS: neck strain TECHNIQUE: 3 view(s) of the cervical spine were acquired. COMPARISON: [facility], , CERVICAL SPINE 2 OR 3 VIEWS, 07/14/2015, 15:11. FINDINGS: Bones: No fractures or dislocations to the T1 level. The lateral masses of C1 appear intact on the odontoid view. No suspicious bony lesions. There is mild to moderate disc space narrowing at C5-C6, moderate disc space narrowing at C6-C7. Endplate irregularity and sclerosis is which are most prominent at these levels. There is mild wedging of anterior osteophytes at C5-C6. There is straightening of the normal cervical lordosis. Soft tissues: No prevertebral soft tissue swelling. The visualized lung apices are unremarkable. IMPRESSION: Lower cervical spine degenerative changes are seen. Dictated by: Orlin Álvarez M.D. on 08/04/2019 at 16:23 Approved by: Orlin Álvarez M.D. on 08/04/2019 at 16:25
== END ==
PROVIDERS: PCP Family Medicine; Visit Provider Family Medicine
DX: S16.1XXA Strain of muscle, fascia and tendon at neck level, initial encounter (principal); M47.812 Spondylosis without myelopathy or radiculopathy, cervical region
CPT/HCPCS: 72040

== ENCOUNTER → 2019-08-15 18:33 | Outpatient (CLI) | payer OTHER, SELFPAY ==
[2019-02-21 16:06] VITALS: BMI 37.4
[2019-08-15 19:03] LABS: Influenza A and B by PCR Rapid Negative (Negative)
== END ==
PROVIDERS: PCP Family Medicine; Visit Provider Physician Assistant
DX: R68.89 Other general symptoms and signs (principal); J02.9 Acute pharyngitis, unspecified
CPT/HCPCS: 87070; 87400; 87502

== ENCOUNTER → 2020-05-26 09:40 | Outpatient (CLI) | payer OTHER, SELFPAY ==
[2019-02-21 16:06] VITALS: BMI 37.4
--- NOTE | 2020-05-26 09:41 | DI.MG.S_ITS ---
UNILATERAL RIGHT DIGITAL SCREENING MAMMOGRAM 3D/2D WITH CAD POST MASTECTOMY: 05/26/2020 CLINICAL: Routine screening. Personal history of left breast cancer. Comparison is made to exams dated: 02/12/2019 breast MRI - [facility], 12/27/2018 mammogram - [facility], 08/21/2015 mammogram, 10/26/2012 mammogram, and 10/10/2008 mammogram - [facility]. There are scattered fibroglandular elements in right breast. Current study was also evaluated with a Computer Aided Detection (CAD) system. There are benign vascular calcifications in the right breast. No significant masses, calcifications, or other findings are seen in the breast. There has been no significant interval change. IMPRESSION: There is no mammographic evidence of malignancy. A 1 year screening mammogram is recommended. This exam was interpreted at Station ID: [id number]. NOTE: For mammograms, a report in lay terms will be sent to the patient. Approximately 15% of breast malignancies will not be visualized mammographically. In the management of a palpable breast mass, a negative mammogram must not discourage biopsy of a clinically suspicious lesion. Electronically Signed By: Phuc garner/willard:05/26/2020 10:25:53 copy to: Jose Jerome copy to: Gareth Martin letter sent: Normal Exam ACR BI-RADS Category 2: Benign Finding(s) 3342F
--- NOTE | 2020-05-26 09:41 | DI.US.S_ITS ---
LIMITED ULTRASOUND OF LEFT BREAST: 05/26/2020 CLINICAL: Palpable left breast lump 15 months post left mastectomy. Comparison is made to exams dated: 02/12/2019 breast MRI [facility] and 01/14/2019 ultrasound biopsy - [facility]. Real-time ultrasound of the left breast 9 o'clock region was performed. Quintero scale images of the real-time examination were reviewed. No mass in the region of the palpable abnormality in the left mastectomy bed. IMPRESSION: NEGATIVE There is no sonographic evidence of malignancy in the left mastectomy bed at 9:00 o'clock. Patient is advised to monitor the area for significant change. This exam was interpreted at Station ID: [id number]. Electronically Signed By: Phuc Garcia M.D. slc/:05/26/2020 10:34:44 copy to: Jose Jerome copy to: Gareth Martin letter sent: Normal Exam Ultrasound BI-RADS: 1 Negative
== END ==
PROVIDERS: PCP Student in an Organized Health Care Education/Training Program; Referring Provider Internal Medicine Hematology & Oncology; Visit Provider Internal Medicine Hematology & Oncology
DX: Z12.31 Encounter for screening mammogram for malignant neoplasm of breast (principal); N63.25 Unspecified lump in the left breast, overlapping quadrants; Z85.3 Personal history of malignant neoplasm of breast
CPT/HCPCS: 76642; 77063; 77067

== ENCOUNTER → 2020-05-29 13:25 | Outpatient (CLI) | payer OTHER, SELFPAY ==
[2019-02-21 16:06] VITALS: BMI 37.4
[2020-05-29 13:41] LABS: Add Manual Diff / Slide Review NO; Basophils Absolute Auto 100 /uL (0-100); Basophils Percent Auto 1.2 % (0-2); Eosinophils Absolute Auto 300 /uL (0-450); Eosinophils Percent Auto 3.6 % (2-4); Hematocrit 37.9 % (36-46); Lymphocytes Absolute Auto 1600 /uL (1100-4500); Lymphocytes Percent Auto 22.3 % (25-40); Mean Corpuscular HGB Conc 34.3 % (30-36); Mean Corpuscular Hemoglobin 30.6 PG (26-34); Mean Corpuscular Volume 89.2 fL (80-100); Monocytes Absolute Auto 400 /uL (0-900); Monocytes Percent Auto 6.1 % (3-14); Neutrophils Absolute Auto 4800 /uL (1500-7000); Neutrophils Percent Auto 66.8 % (50-75); Platelet Count 211 X10^3/uL (150-400); Red Blood Cell Count 4.24 X10^6/uL (4.0-5.2); Red Cell Distribution Width 14.2 % (11.6-14.8); White Blood Cell Count 7.2 X10^3/uL (4.5-11.0)
[2020-05-29 13:53] LABS: Alanine Aminotransferase 17 IU/L (<35); Albumin 4.2 g/dL (3.5-5.0); Albumin Globulin Ratio 1.4 (1.0-2.8); Alkaline Phosphatase 104 U/L (38-126); Aspartate Aminotransferase 27 IU/L (14-36); BUN Creatinine Ratio 18.9 (6-22); Bilirubin Total 0.9 mg/dL (0.2-1.3); Blood Urea Nitrogen 10 mg/dL (7-17); Calcium 9.6 mg/dL (8.4-10.2); Carbon Dioxide 29 mmol/L (22-32); Chloride 104 mmol/L (98-107); Estimated Glomerular Filt Rate > 60.0 mL/min (>60); Globulin 2.9 g/dL (1.7-4.1); Glucose 131 mg/dL (80-110); HEMOLYSIS < 15 (0-50); Potassium 4.3 mmol/L (3.4-5.1); Sodium 138 mmol/L (137-145); Total Protein 7.1 g/dL (6.3-8.2)
== END ==
PROVIDERS: PCP Student in an Organized Health Care Education/Training Program; Referring Provider Internal Medicine Hematology & Oncology; Visit Provider Internal Medicine Hematology & Oncology
DX: C50.919 Malignant neoplasm of unspecified site of unspecified female breast (principal)
CPT/HCPCS: 36415; 80053; 85025

== ENCOUNTER → 2020-06-08 11:30 | Outpatient (CLI) | payer OTHER, SELFPAY ==
[2019-02-21 16:06] VITALS: BMI 37.4
[2020-06-09 09:56] LABS: COVID19 Sendout Not Detected (Not Detect)
== END ==
PROVIDERS: PCP Student in an Organized Health Care Education/Training Program; Visit Provider Student in an Organized Health Care Education/Training Program
DX: Z01.812 Encounter for preprocedural laboratory examination (principal)
CPT/HCPCS: 87635

== ENCOUNTER → 2020-06-11 13:14 | Outpatient (CLI) | payer OTHER, SELFPAY ==
[2019-02-21 16:06] VITALS: BMI 37.4
--- NOTE | 2020-06-11 14:44 | P.PCN_ITS ---
Cardiac Stress Test Report Referral & Results Date Patient Seen: 06/11/20 Time Patient Seen: 14:30 Requesting provider: Jose Junior Indication: Shortness of breath, hyperlipidemia, strong family history of heart disease. Rest ECG: Normal sinus rhythm Procedure Note: Today following both written and verbal informed consent the patient was exercised according to a standard Francis protocol patient went for a total of 5 minutes 3 seconds achieving a maximum heart rate of 138 maximum systolic blood pressure of 220. This is approximately 7 METs. Exercise was terminated at this point because of fatigue. Patient was also given Cardiolite through a previously started Hep-Lock IV by the airdrop systems technician approximately 1 minute prior to the cessation of exercise. Patient had abdominal pain attributable constipation. Had left jaw pain after exercise correlating with high blood pressure. Exaggerated hemodynamic response to exercise. No other signs or symptoms of angina. Normal exercise capacity (HENRI 0% on active scale). No ST changes. No change in rhythm. Impression: Intermediate probability for ischemia. Will await perfusion imaging. Please note: Actual ECG tracings can be found in the PACS system.
--- NOTE | 2020-06-13 04:37 | DI.NM.S_ITS ---
DATE OF SERVICE: 06/11/2020 PROCEDURE: Exercise perfusion study. INDICATIONS: Shortness of breath, family history of coronary artery disease and hyperlipidemia RADIOPHARMACEUTICAL: 25.3 millicurie technetium-99m Myoview IV was injected at stress and 25.8 millicurie technetium-99m Myoview IV was injected at rest. CARDIAC STRESS: The patient underwent exercise perfusion study under the supervision of an attending staff. The patient walked on Francis protocol for 5 minutes 03 seconds, achieved 93 percent of target heart rate. Baseline blood pressure was 160/90. Peak blood pressure 220/100, suggestive of hypertensive blood pressure response. The patient had left jaw pain after exercise, which was mild. Also, had abdominal pain which she attributed to constipation. Baseline rhythm was sinus. No obvious ischemic changes during stress. No significant arrhythmia was seen. The patient achieved 7 METS of workload. Functional aerobic impairment 0 percent. RAW DATA: There is increased subdiaphragmatic activity, as well as breast shadow seen. GATED STUDY: Stress LV ejection fraction is 77 percent without any obvious wall motion abnormalities. Resting end-diastolic volume 93 mL. TID ratio is 0.98, which is within normal limits. Lung/heart ratio 0.16, which is within normal limits. MYOCARDIAL PERFUSION: Stress supine, resting supine and stress prone images were compared to each other. There appears to be normal myocardial perfusion. CONCLUSION: This is a normal myocardial perfusion study. Hypertensive blood pressure response. The patient walked on Francis protocol for 5 minutes 03 seconds. Functional aerobic impairment 0 percent. She achieved 7 METS of workload. No significant arrhythmias. Had left jaw pain after exercise. As far as perfusion scan is concerned, this is a low risk myocardial perfusion scan. Correlate clinically. Vianca Ybarra - DON/kimo/jaen doc#: [id number]/job#: [id number] dd: 06/12/2020 17:18:00 dt: 06/13/2020 04:03:00 DICTATING MD/COPIES TO: Genesis Contreras MD COPIES MNE: WARREN;
== END ==
PROVIDERS: PCP Student in an Organized Health Care Education/Training Program; Referring Provider Student in an Organized Health Care Education/Training Program; Visit Provider Student in an Organized Health Care Education/Training Program
DX: R06.02 Shortness of breath (principal); E78.49 Other hyperlipidemia; Z82.49 Family history of ischemic heart disease and other diseases of the circulatory system
CPT/HCPCS: 78452; 93016; 93017; 93018; A9502

== ENCOUNTER → 2020-12-02 15:05 | Outpatient (CLI) | payer OTHER, SELFPAY ==
[2019-02-21 16:06] VITALS: BMI 37.4
--- NOTE | 2020-12-02 15:08 | DI.RAD.S_ITS ---
PROCEDURE: XR CERVICAL SPINE 2V OR 3V INDICATIONS: Arm parasthesia TECHNIQUE: 3 view(s) of the cervical spine were acquired. COMPARISON: [facility], CR, XR CERVICAL SPINE 2V OR 3V, 08/04/2019, 16:25. FINDINGS: Bones: No acute fractures or dislocations to the T2 level. The lateral masses of C1 appear intact on the odontoid view. No suspicious bony lesions. No acute compression fractures. Straightening of cervical lordosis which may be due to patient positioning and/or concurrent muscle spasms. Redemonstration of multilevel cervical spondylosis with disc space loss at C5-6, C6-7 and C7-T1. Degenerative endplate osteophyte formation most pronounced at C5-6 and C6-7. Soft tissues: No prevertebral soft tissue swelling. IMPRESSION: Cervical spine without acute fracture. Stable appearance of multilevel cervical spondylosis most pronounced in the lower cervical spine. Mild straightening of normal cervical lordosis likely related to positioning and/or concurrent muscle spasms. Dictated by: Reginald Lamar M.D. on 12/02/2020 at 16:50 Approved by: Reginald Lamar M.D. on 12/02/2020 at 16:52
--- NOTE | 2020-12-02 15:08 | DI.RAD.S_ITS ---
PROCEDURE: XR LUMBAR SPINE 2-3V INDICATIONS: leg parasthesia TECHNIQUE: 2 views of the lumbar spine were acquired. COMPARISON: None. FINDINGS: Bones: Diffuse osteopenia. 5 [id number]-[id number] vertebrae are present. There is normal bony alignment. No acute vertebral body compression fractures. However, there is age-indeterminate but likely chronic anterior compression deformity of T12. Mild multilevel spondylitic changes throughout the lumbar spine with associated moderate facet arthropathy which is most pronounced from L3-4 through L5-S1. No suspicious bony lesions. Soft tissues: Overlying bowel gas pattern is normal. No suspicious soft tissue calcifications. IMPRESSION: 1. Lumbar spine without acute osseous abnormalities. Age-indeterminate, but likely chronic compression deformity of the T12 vertebral body. 2. Diffuse osteopenia. 3. Multilevel lumbar spondylosis most pronounced in the mid and lower lumbar spine. Prominent lower lumbar facet arthropathy. Dictated by: Reginald Lamar M.D. on 12/02/2020 at 16:52 Approved by: Reginald Lamar M.D. on 12/02/2020 at 16:54
== END ==
PROVIDERS: PCP Student in an Organized Health Care Education/Training Program; Referring Provider Student in an Organized Health Care Education/Training Program; Visit Provider Student in an Organized Health Care Education/Training Program
DX: M54.2 Cervicalgia (principal); M54.6 Pain in thoracic spine; R20.2 Paresthesia of skin; M47.812 Spondylosis without myelopathy or radiculopathy, cervical region; M47.816 Spondylosis without myelopathy or radiculopathy, lumbar region; M47.817 Spondylosis without myelopathy or radiculopathy, lumbosacral region; M85.88 Other specified disorders of bone density and structure, other site
CPT/HCPCS: 72040; 72100

== ENCOUNTER → 2021-01-08 13:55 | Outpatient (CLI) | payer OTHER, SELFPAY ==
[2019-02-21 16:06] VITALS: BMI 37.4
--- NOTE | 2021-01-08 13:56 | DI.MRI.S_ITS ---
PROCEDURE: MR HEAD/BRAIN WO/W CON INDICATIONS: changes in sensorium TECHNIQUE: Noncontrast axial T1 spin echo, axial T2 fast spin echo, sagittal and axial FLAIR, coronal T2 fast spin echo, axial gradient echo, axial diffusion and ADC through the brain. After the administration of contrast, axial and coronal 3D VIBE or T1 spin echo with fat saturation through the brain. COMPARISON: None. FINDINGS: Image quality: Excellent. CSF Spaces: Basal cisterns are patent. No extra-axial fluid collections. Ventricles are normal in size and shape. Brain: No midline shift. No intracranial bleeds or masses. No abnormal intracranial enhancement. The brainstem appears normal. Diffusion-weighted images demonstrate no acute ischemic insults. No chronic ischemic insults. Normal intravascular flow voids are present. Skull and face: Calvarial marrow is normal in signal. Orbits appear normal. Sinuses: Sinuses and mastoids appear clear. IMPRESSION: Mild microvascular atherosclerotic change in the deep white matter of each hemisphere but no source of altered sensorium is found. No mass, stroke or hemorrhage is seen. No brain inflammation is identified. Dictated by: Amrit Gonzalez M.D. on 01/08/2021 at 16:04 Approved by: Amrit Gonzalez M.D. on 01/08/2021 at 16:05
== END ==
PROVIDERS: PCP Student in an Organized Health Care Education/Training Program; Referring Provider Student in an Organized Health Care Education/Training Program; Visit Provider Student in an Organized Health Care Education/Training Program
DX: R20.2 Paresthesia of skin (principal); C50.919 Malignant neoplasm of unspecified site of unspecified female breast; R52 Pain, unspecified
CPT/HCPCS: 70553; A9579

== ENCOUNTER → 2021-08-20 12:47 | Outpatient (CLI) | payer OTHER, SELFPAY ==
[2019-02-21 16:06] VITALS: BMI 37.4
--- NOTE | 2021-08-20 12:48 | DI.US.S_ITS ---
LIMITED ULTRASOUND OF LEFT BREAST: 08/20/2021 CLINICAL: Palpable left breast lump. Comparison is made to exams dated: 05/26/2020 ultrasound, 02/12/2019 breast MRI - [facility], and 01/14/2019 ultrasound biopsy - [facility]. Real-time ultrasound of the left breast was performed. Quintero scale images of the real-time examination were reviewed. No significant abnormalities were seen sonographically in the left breast. Specifically, no finding to correspond to the patient's palpable abnormalities. IMPRESSION: NEGATIVE There is no sonographic evidence of malignancy. There are no sonographic abnormalities seen in the left breast to correspond with the palpable nodularities. Clinical correlation recommended. Findings and recommendations were conveyed to the patient at time of exam. This exam was interpreted at Station ID: [id number]. Electronically Signed By: Emily li/:08/20/2021 15:28:09 copy to: Jose Jerome copy to: Gareth Martin letter sent: Clinical Evaluation Ultrasound BI-RADS: 1 Negative
--- NOTE | 2021-08-20 12:48 | DI.MG.S_ITS ---
UNILATERAL RIGHT DIGITAL DIAGNOSTIC MAMMOGRAM 3D/2D: 08/20/2021 CLINICAL: Right breast thickening. Left breast lumps. Comparison is made to exams dated: 05/26/2020 mammogram, 05/26/2020 [facility], and 01/14/2019 mammogram - [facility]. There are scattered fibroglandular elements in right breast. There are stable benign vascular calcifications in the right breast. No significant masses, calcifications, or other findings are seen in the breast. Prior left mastectomy. IMPRESSION: INCOMPLETE: NEEDS ADDITIONAL IMAGING EVALUATION There is no abnormality seen in the right breast to correspond with the skin thickening in the inferior medial quadrant. Ultrasound is recommended for full evaluation of this area. This was not performed immediately following this exam because there was no written order from the physician. The patient should return for this exam as soon as possible. Findings and recommendations were conveyed to the patient at time of exam. This exam was interpreted at Station ID: [id number]. NOTE: For mammograms, a report in lay terms will be sent to the patient. Approximately 15% of breast malignancies will not be visualized mammographically. In the management of a palpable breast mass, a negative mammogram must not discourage biopsy of a clinically suspicious lesion. Electronically Signed By: Emily li/:08/20/2021 15:24:36 copy to: Jose Jerome copy to: Gareth Martin letter sent: Need Ultrasound ACR BI-RADS Category 0: Incomplete 3340F
== END ==
PROVIDERS: Referring Provider Internal Medicine Hematology & Oncology; Visit Provider Internal Medicine Hematology & Oncology
DX: N63.0 Unspecified lump in unspecified breast (principal)
CPT/HCPCS: 76642; 77065; G0279

== ENCOUNTER → 2021-09-02 12:40 | Outpatient (CLI) | payer OTHER, SELFPAY ==
[2019-02-21 16:06] VITALS: BMI 37.4
--- NOTE | 2021-09-02 12:41 | DI.US.S_ITS ---
LIMITED ULTRASOUND OF RIGHT BREAST: 09/02/2021 CLINICAL: Right breast thickening. Comparison is made to exams dated: 08/20/2021 mammogram and 05/26/2020 mammogram - [facility]. Real-time ultrasound of the right breast was performed. Quintero scale images of the real-time examination were reviewed. No significant abnormalities were seen sonographically in the right breast. IMPRESSION: NEGATIVE There is no sonographic evidence of malignancy. There is no abnormality seen in the right breast near the inframammary fold to correspond with the palpable thickening, however, clinical followup is recommended. A 1 year screening mammogram is recommended. This exam was interpreted at Station ID: [id number]. Electronically Signed By: Ephraim Souza M.D. ar/:09/02/2021 13:27:05 copy to: Jose Jerome copy to: Gareth Martin letter sent: Clinical Evaluation Ultrasound BI-RADS: 1 Negative
== END ==
PROVIDERS: PCP Student in an Organized Health Care Education/Training Program; Referring Provider Internal Medicine Hematology & Oncology; Visit Provider Internal Medicine Hematology & Oncology
DX: C50.919 Malignant neoplasm of unspecified site of unspecified female breast (principal)
CPT/HCPCS: 76642

== ENCOUNTER → 2022-07-08 16:17 | Outpatient (CLI) | payer OTHER, SELFPAY ==
[2019-02-21 16:06] VITALS: BMI 37.4
[2022-07-08 19:13] LABS: Creatine Kinase 153 U/L (30-135)
== END ==
PROVIDERS: PCP Student in an Organized Health Care Education/Training Program; Referring Provider Internal Medicine Cardiovascular Disease; Visit Provider Internal Medicine Cardiovascular Disease
DX: I25.9 Chronic ischemic heart disease, unspecified (principal)
CPT/HCPCS: 36415; 82085; 82550

== ENCOUNTER → 2022-10-03 14:13 | Outpatient (CLI) | payer OTHER, SELFPAY ==
[2019-02-21 16:06] VITALS: BMI 37.4
[2022-10-03 16:37] LABS: Cholesterol 145 mg/dL (140-199); Creatine Kinase 86 U/L (30-135); HDL Cholesterol 37 mg/dL (40-60); LDL Cholesterol Calculated 78 mg/dL (<100); Triglycerides 150 mg/dL (35-150)
== END ==
PROVIDERS: PCP Student in an Organized Health Care Education/Training Program; Referring Provider Internal Medicine Cardiovascular Disease; Visit Provider Internal Medicine Cardiovascular Disease
DX: E78.5 Hyperlipidemia, unspecified (principal)
CPT/HCPCS: 36415; 80061; 82550

== ENCOUNTER → 2022-12-06 14:44 | Outpatient (CLI) | payer OTHER, SELFPAY ==
[2019-02-21 16:06] VITALS: BMI 37.4
== END ==
PROVIDERS: PCP Student in an Organized Health Care Education/Training Program; Referring Provider Student in an Organized Health Care Education/Training Program; Visit Provider Student in an Organized Health Care Education/Training Program
DX: Z78.0 Asymptomatic menopausal state (principal); M81.0 Age-related osteoporosis without current pathological fracture
CPT/HCPCS: 77080

== ENCOUNTER → 2022-12-22 13:35 | Outpatient (CLI) | payer OTHER, SELFPAY ==
[2019-02-21 16:06] VITALS: BMI 37.4
--- NOTE | 2022-12-22 | DI.MG.S_ITS ---
UNILATERAL RIGHT DIGITAL SCREENING MAMMOGRAM 3D/2D WITH CAD: 12/22/2022 CLINICAL: Routine screening. Personal history of left breast cancer. Comparison is made to exams dated: 09/02/2021 ultrasound, 08/20/2021 ultrasound, 08/20/2021 mammogram, and 05/26/2020 mammogram - [facility]. There are scattered areas of fibroglandular density in the right breast (category b / 25%-50% glandular tissue). Current study was also evaluated with a Computer Aided Detection (CAD) system. There is a stable benign calcification in the right breast. No significant masses, calcifications, or other findings are seen in the breast. There has been no significant interval change. IMPRESSION: BENIGN There is no mammographic evidence of malignancy. A 1 year screening mammogram is recommended. This exam was interpreted at Station ID: [id number]. NOTE: For mammograms, a report in lay terms will be sent to the patient. Approximately 15% of breast malignancies will not be visualized mammographically. In the management of a palpable breast mass, a negative mammogram must not discourage biopsy of a clinically suspicious lesion. Electronically Signed By: Burt lara/willard:12/22/2022 17:11:58 copy to: Jose Jerome copy to: Gareth Martin letter sent: Normal Exam ACR BI-RADS Category 2: Benign Finding(s) 3342F
--- NOTE | 2022-12-22 13:38 | DI.US.S_ITS ---
LIMITED ULTRASOUND OF LEFT BREAST: 12/22/2022 CLINICAL: Palpable left breast lump. Post left mastectomy. Comparison is made to exams dated: 08/20/2021 ultrasound, 05/26/2020 ultrasound - [facility], 01/14/2019 ultrasound biopsy - [facility], 02/12/2019 breast MRI - [facility], and 01/14/2019 mammogram - [facility]. Real-time ultrasound of the left breast was performed. Quintero scale images of the real-time examination were reviewed. IMPRESSION: NEGATIVE There is no sonographic evidence of malignancy. There is no abnormality seen in the left breast to correspond with the area of clinical concern at 9 o'clock. Patient may be palpating a rib. Return to annual mammogram screening schedule is recommended. This exam was interpreted at Station ID: [id number]. Electronically Signed By: Burt Bain M.D. lc/:12/22/2022 15:46:09 copy to: Jose Jerome copy to: Gareth Martin letter sent: Clinical Evaluation Ultrasound BI-RADS: 1 Negative
== END ==
PROVIDERS: PCP Student in an Organized Health Care Education/Training Program; Referring Provider Student in an Organized Health Care Education/Training Program; Visit Provider Student in an Organized Health Care Education/Training Program
DX: N63.25 Unspecified lump in the left breast, overlapping quadrants (principal); Z12.31 Encounter for screening mammogram for malignant neoplasm of breast; Z85.3 Personal history of malignant neoplasm of breast; Z90.12 Acquired absence of left breast and nipple
CPT/HCPCS: 76642; 77063; 77067

== ENCOUNTER → 2023-01-30 14:21 | Outpatient (CLI) | payer OTHER, SELFPAY ==
[2019-02-21 16:06] VITALS: BMI 37.4
[2023-01-30 15:51] LABS: Alanine Aminotransferase 27 IU/L (<35); Albumin 4.1 g/dL (3.5-5.0); Albumin Globulin Ratio 1.5 (1.0-2.8); Alkaline Phosphatase 84 U/L (38-126); Aspartate Aminotransferase 35 IU/L (14-36); BUN Creatinine Ratio 16.4 (6-22); Bilirubin Total 1.1 mg/dL (0.2-1.3); Blood Urea Nitrogen 10 mg/dL (7-17); Calcium 9.1 mg/dL (8.4-10.2); Carbon Dioxide 34 mmol/L (22-32); Chloride 100 mmol/L (98-107); Cholesterol 160 mg/dL (140-199); Estimated Glomerular Filt Rate > 60 mL/min (>60); Globulin 2.7 g/dL (1.7-4.1); Glucose 104 mg/dL (80-110); HDL Cholesterol 42 mg/dL (40-60); HEMOLYSIS < 15 (0-50); LDL Cholesterol Calculated 80 mg/dL (<100); Potassium 4.6 mmol/L (3.4-5.1); Sodium 140 mmol/L (137-145); Total Protein 6.8 g/dL (6.3-8.2); Triglycerides 191 mg/dL (35-150)
== END ==
PROVIDERS: PCP Student in an Organized Health Care Education/Training Program; Referring Provider Internal Medicine Cardiovascular Disease; Visit Provider Internal Medicine Cardiovascular Disease
DX: E78.5 Hyperlipidemia, unspecified (principal)
CPT/HCPCS: 36415; 80053; 80061

== ENCOUNTER → 2023-05-08 13:31 | Outpatient (CLI) | payer OTHER, SELFPAY ==
[2019-02-21 16:06] VITALS: BMI 37.4
[2023-05-08 14:43] LABS: Cholesterol 120 mg/dL (140-199); HDL Cholesterol 39 mg/dL (40-60); LDL Cholesterol Calculated 62 mg/dL (<100); Triglycerides 94 mg/dL (35-150)
== END ==
PROVIDERS: PCP Pediatrics; Referring Provider Internal Medicine Cardiovascular Disease; Visit Provider Internal Medicine Cardiovascular Disease
DX: E78.5 Hyperlipidemia, unspecified (principal)
CPT/HCPCS: 36415; 80061

== ENCOUNTER → 2023-12-25 13:08 | Outpatient (CLI) | payer OTHER, SELFPAY ==
[2019-02-21 16:06] VITALS: BMI 37.4
[2023-12-25 14:17] LABS: Alanine Aminotransferase 20 IU/L (<35); Albumin 4.1 g/dL (3.5-5.0); Albumin Globulin Ratio 1.2 (1.0-2.8); Alkaline Phosphatase 96 U/L (38-126); Aspartate Aminotransferase 31 IU/L (14-36); Bilirubin Total 0.9 mg/dL (0.2-1.3); Blood Urea Nitrogen 12 mg/dL (7-17); Calcium 9.7 mg/dL (8.4-10.2); Carbon Dioxide 31 mmol/L (22-32); Chloride 103 mmol/L (98-107); Estimated Glomerular Filt Rate > 60 mL/min (>60); Globulin 3.3 g/dL (1.7-4.1); Glucose 103 mg/dL (80-110); HEMOLYSIS < 15 (0-50); Potassium 4.1 mmol/L (3.4-5.1); Sodium 139 mmol/L (137-145); Total Protein 7.4 g/dL (6.3-8.2)
[2023-12-27 08:42] LABS: Cholesterol, Total 153 mg/dL (100-199); HDL-Cholesterol 44 mg/dL (>39); HDL-Particle (Total) 38.5 umol/L (>=30.5); LDL Particle 1505 nmol/L (<1000); LDL Size 20.9 nm (>20.5); LDL-Cholsterol 86 mg/dL (0-99); LP-IR Score 70 (<=45); Small LDL- Particle 809 nmol/L (<=527); Triglycerides 131 mg/dL (0-149)
== END ==
PROVIDERS: Referring Provider Internal Medicine Cardiovascular Disease; Visit Provider Internal Medicine Cardiovascular Disease
DX: I48.0 Paroxysmal atrial fibrillation (principal); E78.5 Hyperlipidemia, unspecified
CPT/HCPCS: 36415; 80053; 80061; 83704

== ENCOUNTER 2023-12-25 14:32 | Observation (INO) | payer OTHER, SELFPAY ==
[2019-02-21 16:06] VITALS: BMI 37.4
[2023-12-25] VITALS (16 sets, daily range): BP systolic 158–232; BP diastolic 70–132; PULSE 59–78; RESP 15–28; TEMP 36.3–37.2; O2SAT 92–99; BMI 38.9
--- NOTE | 2023-12-25 14:46 | DI.RAD.S_ITS ---
PROCEDURE: XR CHEST 1V INDICATIONS: chest pain TECHNIQUE: One view of the chest was acquired. COMPARISON: [facility], CR, XR CHEST 2V, 01/30/2019, 13:58. FINDINGS: Surgical changes and devices: None. Lungs and pleura: Lungs are clear. No pleural effusions or pneumothorax. Mediastinum: Mediastinal contours appear normal. Heart size is normal. Bones and chest wall: No suspicious bony lesions. Overlying soft tissues appear unremarkable. IMPRESSION: No acute cardiopulmonary abnormality is seen. Dictated by: Saad Power M.D. on 12/25/2023 at 15:29 Approved by: Saad Power M.D. on 12/25/2023 at 15:29
[2023-12-25 15:17] LABS: INR 1.2 (0.9-1.3); Prothrombin Time 13.5 SECONDS (9.4-12.5)
[2023-12-25 15:20] LABS: PTT Partial Thromboplastin Tim 36 SECONDS (25.1-36.5)
[2023-12-25 15:23] LABS: Alanine Aminotransferase 20 IU/L (<35); Albumin 4.2 g/dL (3.5-5.0); Albumin Globulin Ratio 1.3 (1.0-2.8); Alkaline Phosphatase 90 U/L (38-126); Aspartate Aminotransferase 31 IU/L (14-36); BUN Creatinine Ratio 21.4 (6-22); Bilirubin Total 0.9 mg/dL (0.2-1.3); Blood Urea Nitrogen 12 mg/dL (7-17); Calcium 9.7 mg/dL (8.4-10.2); Carbon Dioxide 32 mmol/L (22-32); Chloride 103 mmol/L (98-107); Creatine Kinase 88 U/L (30-135); Estimated Glomerular Filt Rate > 60 mL/min (>60); Globulin 3.2 g/dL (1.7-4.1); Glucose 164 mg/dL (80-110); HEMOLYSIS < 15 (0-50); Lipase 78 U/L (23-300); Magnesium 1.8 mg/dL (1.6-2.3); Potassium 3.7 mmol/L (3.4-5.1); Sodium 139 mmol/L (137-145); Total Protein 7.4 g/dL (6.3-8.2)
[2023-12-25 15:30] LABS: Add Manual Diff / Slide Review NO; Basophils Absolute Auto 100 /uL (0-100); Eosinophils Absolute Auto 200 /uL (0-450); Eosinophils Percent Auto 3.4 % (2-4); Hematocrit 39.8 % (36-46); Hemoglobin 13.3 g/dL (12.0-16.0); Lymphocytes Absolute Auto 1800 /uL (1100-4500); Lymphocytes Percent Auto 26.8 % (25-40); Mean Corpuscular HGB Conc 33.4 % (30-36); Mean Corpuscular Volume 89.9 fL (80-100); Monocytes Absolute Auto 400 /uL (0-900); Neutrophils Absolute Auto 4300 /uL (1500-7000); Neutrophils Percent Auto 62.8 % (50-75); Platelet Count 183 X10^3/uL (150-400); Red Blood Cell Count 4.43 X10^6/uL (4.0-5.2); Red Cell Distribution Width 14.7 % (11.6-14.8); White Blood Cell Count 6.9 X10^3/uL (4.5-11.0)
[2023-12-25 15:32] LABS: NT-proBNP (BNP-Adult 18+) 325 pg/mL (<450)
[2023-12-25 15:35] LABS: Troponin I < 0.012 ng/mL (0.01-0.034)
--- NOTE | 2023-12-25 19:46 | ED.CHESTPAIN ---
HPI - Chest Pain General Chief Complaint: Chest Pain Stated Complaint: chest pain t-3, hx of heart attack, similar symp Time Seen by Provider: 12/25/23 19:45 Source: patient Mode of arrival: Wheelchair Limitations: no limitations History of Present Illness HPI narrative: Patient is 78-year-old female history of coronary artery disease with LAD stent, she has had some shortness of breath for the last 3 days. She reports some heaviness in her chest. It is hard to say if it is worse with exertion or rest. Sometimes she feels like it is worse when she leans over. She feels like sometimes her heart is irregular but she has not dizzy or lightheaded. Sometimes she is bilateral jaw pain. She is on Eliquis she denies any history of atrial fibrillation rhythm on the monitor does look sinus. She denies any lower extremity swelling abdominal pain she is having some but she feels like she has not eaten she has been waiting in the emergency department for hours Related Data Home Medications Medication Instructions Recorded Confirmed multivitamin (Multiple Vitamins 1 tab PO QDAY ##0 04/26/17 12/25/23 tablet) Flaxseed Oil 1,000 mg PO DAILY 12/25/18 12/25/23 LACTAID 1 cap PO ONCE PRN Lactose 12/25/18 12/25/23 Intolerance apixaban 5 mg tablet 5 mg PO BID 07/13/22 12/25/23 clopidogrel 75 mg tablet 75 mg PO DAILY 07/13/22 12/25/23 losartan 25 mg tablet 12.5 mg PO DAILY 07/13/22 12/25/23 metoprolol succinate 25 mg 25 mg PO DAILY 07/13/22 12/25/23 tablet,extended release 24 hr rosuvastatin 20 mg tablet 20 mg PO DAILY 02/01/23 12/25/23 Primadophilus Bifidus DAILY 12/25/23 Previous Rx's Medication Instructions Recorded sertraline 50 mg tablet 50 mg PO DAILY #90 tabs 10/05/23 Allergies Allergy/AdvReac Type Severity Reaction Status Date / Time erythromycin base Allergy Intermediate Vomiting Verified 02/01/23 13:50 [ERYTHROMYCIN BASE] meperidine [MEPERIDINE] Allergy Mild Light Verified 02/01/23 13:50 headed lactose AdvReac Mild GAS, Verified 02/01/23 13:50 BLOATING AND GI UPSET RAISED BREADS AdvReac Mild Tightening Uncoded 02/01/23 13:50 in my lungs, wheezing and shortness of breath Patient History Medical History (Updated 12/25/23 @ 23:01 by Carly Westfall DO) Carpal tunnel syndrome (05/02/08) Anxiety about health Breast cancer Irritable bowel (Unknown) Arm fracture, right (12/2007) Herpes (Unknown) Carpal tunnel syndrome (04/2008) Osteopenia (Unknown) Depression (Unknown) Hypertension (Unknown) Hyperlipemia (Unknown) Alopecia (Unknown) Rosacea (Unknown) Hypoglycemia (Unknown) Surgical History (Updated 10/11/22 @ 15:28 by Jose Junior MD) Hx of breast biopsy History of removal of ovarian cyst (1970) History of tonsillectomy Family History Brother Mouth cancer Cancer Heart disease Father Stroke Diabetes mellitus Gallstones Mother Hypertension Heart disease Social History household members: family, children and none Smoking Status: Never smoker second hand exposure: No alcohol intake: former substance use type: does not use Smoking Status: Never smoker Substance Use Type: does not use Exam Initial Vital Signs Initial Vital Signs: Vital Signs Temperature 97.4 F L 12/25/23 14:38 Pulse Rate 71 12/25/23 14:38 Respiratory Rate 16 12/25/23 14:38 Blood Pressure 212/93 H 12/25/23 14:38 Pulse Oximetry 96 12/25/23 14:38 Oxygen Delivery Method Room Air 12/25/23 14:38 GENERAL: Alert 78-year-old female no acute distress and in no acute distress. HEENT: Head atraumatic,EOMI, pupils reactive, face symmetric, moist mucous membranes CARDIOVASCULAR: Regular rate and rhythm without murmurs, rubs or gallops. RESPIRATORY: Breath sounds equal bilaterally, no wheezes rales or rhonchi. ABDOMEN: Soft, nontender. Normoactive bowel sounds all 4 quadrants. No guarding or rebound. EXTREMITIES: Normal range of motion, no clubbing or edema. Neurovascularly intact NEUROLOGICAL: Alert and oriented x4.Normal gait and speech. SKIN: Warm, dry, no laceration, no petechiae, no rashes or lesions. Scores HEART Score Heart Score history: Moderately Suspicious Heart Score EKG: Normal Heart Score Age: > or = 65 years old Heart Score risk factors: > 3 risk factors or hx of atherosclerotic disease Heart Score troponin: < or = to normal limit Heart Score Total: 5 Course Orders Ordered: ED Orders 12/25/23 20:26 Troponin & CK Cardiac Panel Stat Acetaminophen (Acetaminophen 325 Mg Tablet) 650 mg PO Q6H PRN PRN Reason: Fever/Mild Pain (1-3) Apixaban (Apixaban 5 Mg Tablet) 5 mg PO BID [facility] Atorvastatin Calcium (Atorvastatin 20 Mg Tablet) 40 mg PO DAILY [facility] Clopidogrel Bisulfate (Clopidogrel 75 Mg Tablet) 75 mg PO DAILY [facility] Losartan Potassium (Losartan 25 Mg Tablet) 12.5 mg PO DAILY [facility] Metoprolol Succinate (Metoprolol Er 25 Mg Tablet) 25 mg PO DAILY [facility] Metoprolol Tartrate (Metoprolol Tartrate 5 Mg/5 Ml Inj) 5 mg IV Q2HR PRN PRN Reason: for SBP> 160 Last Admin: 12/26/23 03:41 Dose: 5 mg Documented By: AT Multivitamins (Multivitamin 1 Tablet) 1 tab PO DAILY [facility] Naloxone HCl (Naloxone 0.4 Mg/Ml Vial) 0.2 mg IV Q2MIN PRN PRN Reason: Opiate Reversal Sertraline HCl (Sertraline 50 Mg Tablet) 50 mg PO DAILY [facility] Sodium Chloride (Sodium Chloride 0.9% Flush) 10 ml IV BID [facility] Discontinued Medications Aspirin (Aspirin 81 Mg Chew Tab) 324 mg PO NOW ONE Stop: 12/25/23 14:47 Last Admin: 12/25/23 21:03 Dose: 324 mg Documented By: SB Metoprolol Tartrate (Metoprolol Ir 25 Mg Tablet) 25 mg PO NOW ONE Stop: 12/26/23 00:57 Last Admin: 12/26/23 01:12 Dose: 25 mg Documented By: PRACHI Nitroglycerin (Nitroglycerin 0.4 Mg Sl Tab) 0.4 mg SL NOW ONE Stop: 12/25/23 20:09 Last Admin: 12/25/23 21:03 Dose: 0.4 mg Documented By: SB Vital Signs Vital signs: Vital Signs - 8 hr 12/25/23 21:00 12/25/23 21:00 12/25/23 21:03 Pulse Rate 59 L 60 Respiratory Rate 19 Blood Pressure 198/85 H 198/85 H Pulse Oximetry 98 Oxygen Delivery Method Room Air 12/25/23 21:11 12/25/23 21:11 12/25/23 21:30 Pulse Rate 78 63 Respiratory Rate 24 20 Blood Pressure 200/81 H Pulse Oximetry 95 95 Oxygen Delivery Method Room Air Room Air 12/25/23 21:30 Pulse Rate Respiratory Rate Blood Pressure 180/132 H Pulse Oximetry Oxygen Delivery Method MDM - Chest Pain Lab Data 12/25/23 14:53 12/25/23 14:53 Labs: Lab Results 12/25/23 12/25/23 Range/Units 14:53 20:26 WBC 6.9 (4.5-11.0) X10^3/uL RBC 4.43 (4.0-5.2) X10^6/uL Hgb 13.3 (12.0-16.0) g/dL Hct 39.8 (36-46) % MCV 89.9 (80-100) fL MCH 30.0 (26-34) PG MCHC 33.4 (30-36) % RDW 14.7 (11.6-14.8) % Plt Count 183 (150-400) X10^3/uL Neut % (Auto) 62.8 (50-75) % Lymph % (Auto) 26.8 (25-40) % Bertie % (Auto) 6.0 (3-14) % Eos % (Auto) 3.4 (2-4) % Baso % (Auto) 1.0 (0-2) % Neut # (Auto) 4300 (1558-6479) /uL Lymph # (Auto) 1800 (7970-5181) /uL Bertie # (Auto) 400 (0-900) /uL Eos # (Auto) 200 (0-450) /uL Baso # (Auto) 100 (0-100) /uL PT 13.5 H (9.4-12.5) SECONDS INR 1.2 (0.9-1.3) APTT 36 (25.1-36.5) SECONDS Sodium 139 (137-145) mmol/L Potassium 3.7 (3.4-5.1) mmol/L Chloride 103 (98-107) mmol/L Carbon Dioxide 32 (22-32) mmol/L BUN 12 (7-17) mg/dL Creatinine 0.56 (0.52-1.04) mg/dL Estimated GFR > 60 (>60) mL/min BUN/Creatinine Ratio 21.4 (6-22) Glucose 164 H (80-110) mg/dL Calcium 9.7 (8.4-10.2) mg/dL Magnesium 1.8 (1.6-2.3) mg/dL Total Bilirubin 0.9 (0.2-1.3) mg/dL AST 31 (14-36) IU/L ALT 20 (<35) IU/L Alkaline Phosphatase 90 (38-126) U/L Total Creatine Kinase 88 88 (30-135) U/L Troponin I < 0.012 < 0.012 (0.01-0.034) ng/mL NT-Pro-B Natriuret Pep 325 (<450) pg/mL Total Protein 7.4 (6.3-8.2) g/dL Albumin 4.2 (3.5-5.0) g/dL Globulin 3.2 (1.7-4.1) g/dL Albumin/Globulin Ratio 1.3 (1.0-2.8) Lipase 78 (23-300) U/L Imaging Data Chest x-ray: Radiologist's Impression: PROCEDURE: XR CHEST 1V INDICATIONS: chest pain TECHNIQUE: One view of the chest was acquired. COMPARISON: [facility], , XR CHEST 2V, 01/30/2019, 13:58. FINDINGS: Surgical changes and devices: None. Lungs and pleura: Lungs are clear. No pleural effusions or pneumothorax. Mediastinum: Mediastinal contours appear normal. Heart size is normal. Bones and chest wall: No suspicious bony lesions. Overlying soft tissues appear unremarkable. IMPRESSION: No acute cardiopulmonary abnormality is seen. ECG Data Interpretation: Sinus rhythm rate 81 DC interval 186 QRS [address] changes PAC noted MDM Narrative Medical decision making narrative: Patient is a 78-year-old female history of coronary artery disease with stent presenting today with left-sided chest pain ongoing for a couple of days. This is feeling like her previous cardiac event. Although sometimes she does say it is worse with leaning forward and better while leaning backwards. It is hard to reproduce. Blood work has been reviewed Chest x-ray reviewed EKG reviewed-no priors to compare Patient is on Eliquis although she does not report having a history of atrial fibrillation. And there is no evidence of at. Brief discussion with Cardiology, Dr. Contreras in regards to patient he reports that can have echo and stress test here no need for transfer Dr. Rowe accepts patient. Discharge Plan Departure Patient Disposition: Admitted as Observation Clinical Impression: Chest pain Admit Date/Time: 12/25/23 21:50 Admit Provider: Tino Sweeney
[2023-12-25 20:54] LABS: Creatine Kinase 88 U/L (30-135)
[2023-12-25] MEDS: ASPIRIN 81 MG CHEW TAB 324 MG PO (21:03)
[2023-12-25] MEDS: NITROGLYCERIN 0.4 MG SL TAB SL (21:03)
[2023-12-25 21:07] LABS: Troponin I < 0.012 ng/mL (0.01-0.034)
--- NOTE | 2023-12-25 22:59 | DI.ECHO.S_ITS ---
[facility] +---------+ : : [address] [place] : : : : [id number] : : : : Phone: [phone]+ Echocardiogram Report + + :Name: TAMEKA MCCAIN Study Date: 12/26/2023 Height: 62 in : :[facility] ReadingLocation: Weight: 213 lb : : Gender: Female BSA: 2.0 m2 : :: 1945 Age: 78 yrs BP: 176/90 mmHg: :Reason For Study: SUSPECTED WALL MOTION : :Ordering Physician: OLLIE, : :MARVIN Performed By: Lala Justice : :Referring: MARVIN LEVIN MD : + + Interpretation Summary There is mild concentric left ventricular hypertrophy. The ejection fraction is estimated to be 60-65%. Diastolic function could not be accurately assessed due to contradictory data. The left atrium is mildly dilated. The right ventricle is normal in size and function. There is mild mitral regurgitation. There is mild aortic regurgitation. There is mild tricuspid regurgitation. Pulmonary artery pressures cannot be estimated because of the lack of a measurable TR jet velocity but the IVC suggests a CVP of around 3 mmHg. Compared to the prior study dated 06/21/2022, the mid anterior wall motion is normal now. The distal and anteroapical segments are not well visualized. Procedure: A two-dimensional transthoracic echocardiogram with color flow and Doppler was performed. The study quality was technically adequate. There is no prior echocardiogram noted for this patient. The patient was in sinus rhythm with heart rates between 58-70 bpm during the exam. Left Ventricle: There is mild concentric left ventricular hypertrophy. The left ventricle is normal in size. The ejection fraction is estimated to be 60- 65%. Diastolic function could not be accurately assessed due to contradictory data. Right Ventricle: The right ventricle is normal in size and function. Atria: The left atrium is mildly dilated. Right atrial size is normal. There is no Doppler evidence for an interatrial shunt. Mitral Valve: The mitral valve is normal. There is mild mitral regurgitation. Aortic Valve: The aortic valve is trileaflet. The aortic valve opens well. There is no aortic valve stenosis. There is mild aortic regurgitation. Tricuspid Valve: The tricuspid valve is normal in structure and function. There is mild tricuspid regurgitation. Pulmonary artery pressures cannot be estimated because of the lack of a measurable TR jet velocity but the IVC suggests a CVP of around 3 mmHg. Pulmonic Valve: The pulmonic valve leaflets are thin and pliable; valve motion is normal. There is trace pulmonic regurgitation. Great Vessels: The aortic root is normal size. The dimensions of the ascending aorta are normal. The IVC is of normal diameter and collapses greater than 50% with a sniff. This suggests a low right atrial pressure of 3 mm Hg. Pericardium/ Pleura There is no pericardial effusion. There is no pleural effusion. MMode/2D Measurements & Calculations LVIDd: 4.5 cm LVOT diam: 2.0 cm LVIDs: 2.9 cm Ao root diam: 2.9 cm FS: 34.5 % asc Aorta Diam: 3.2 cm IVSd: 1.4 cm Ao Arch Diam (Prox Trans): 2.5 cm LVPWd: 1.2 cm LV gee. diameter/BSA (cm/m^2): 2.3 LV sys. diameter/BSA (cm/m^2): 1.5 LA A2 area: 21.3 cm2 RA long axis: 4.9 cm LA A4 area: 22.0 cm2 RA area: 15.2 cm2 LA length (vol): 5.4 cm RA vol: 40.0 ml LA vol: 73.8 ml RA : 20.4 ml/m2 LA vol index: 37.6 ml/m2 IVC diam: 1.7 cm RVD1 (basal): 3.5 cm RVD2 (mid): 2.7 cm TAPSE: 2.1 cm Doppler Measurements & Calculations Ao V2 max: 153.0 cm/sec LVOT Max Ranjan: 81.5 cm/sec Ao V2 mean: 111.0 cm/sec LV V1 max P.7 mmHg Ao max P.4 mmHg LV V1 VTI: 19.7 cm Ao mean P.4 mmHg ATUL(I,D): 1.6 cm2 Ao V2 VTI: 37.2 cm ATUL(V,D): 1.7 cm2 sev ratio: 0.53 ATUL indexed to BSA (cm^2/m^2): 0.84 AI P1/2t: 472.2 msec AI dec slope: 248.1 cm/sec2 MV E max ranjan: 95.9 cm/sec TR max ranjan: 236.9 cm/sec MV A max ranjan: 88.9 cm/sec TR max P.4 mmHg MV E/A: 1.1 PA V2 max: 91.9 cm/sec Med Peak E' Ranjan: 5.8 cm/sec PA V2 mean: 69.8 cm/sec E/E' med: 16.6 PA mean P.1 mmHg Lat Peak E' Ranjan: 8.6 cm/sec PA pr(Accel): 43.0 mmHg E/E' lat: 11.2 E/e' average: 13.9 MV dec time: 0.25 sec SV(LVOT): 61.1 ml Reading Physician:10:33 AM
[2023-12-26] VITALS (8 sets, daily range): BP systolic 159–182; BP diastolic 75–99; PULSE 63–115; RESP 18–20; TEMP 36.8; O2SAT 95–97
[2023-12-26] MEDS: METOPROLOL IR 25 MG TABLET PO (01:12)
[2023-12-26 02:11] LABS: MRSA (Nasal) PCR Not Detected (Not Detect)
[2023-12-26] MEDS: METOPROLOL TARTRATE 5 MG/5 ML INJ IV ×2 (03:41→13:30)
--- NOTE | 2023-12-26 06:25 | P.HP_ITS ---
History of Present Illness History of Present Illness Date Patient Seen: 12/25/23 Chief complaint: chest pain t-3, hx of heart attack, similar symp Narrative: 78-year-old female history of coronary artery disease with LAD stent few years ago, presented to ED with shortness of breath for the last 3 days, heaviness in her chest that could be both exertional and positional, episodic palpitations. She was not diaphoretic, nauseated or dizzy. Initial workup in the ED negative for ACS. Consistently hypertensive since the admission. [facility], [facility] Medical History (Updated 12/26/23 @ 06:39 by Tino Rowe MD) CAD (coronary artery disease) Carpal tunnel syndrome (05/02/08) Anxiety about health Breast cancer Irritable bowel (Unknown) Arm fracture, right (12/2007) Herpes (Unknown) Carpal tunnel syndrome (04/2008) Osteopenia (Unknown) Depression (Unknown) Hypertension (Unknown) Hyperlipemia (Unknown) Alopecia (Unknown) Rosacea (Unknown) Hypoglycemia (Unknown) Surgical History Hx of breast biopsy History of removal of ovarian cyst (1970) History of tonsillectomy Family History Brother Mouth cancer Cancer Heart disease Father Stroke Diabetes mellitus Gallstones Mother Hypertension Heart disease Social History household members: family, children and none Smoking Status: Never smoker second hand exposure: No alcohol intake: former substance use type: does not use Meds Home Medications and Allergies Home Medications Medication Instructions Recorded Confirmed Type multivitamin (Multiple Vitamins 1 tab PO QDAY ##0 04/26/17 12/25/23 History tablet) Flaxseed Oil 1,000 mg PO DAILY 12/25/18 12/25/23 History LACTAID 1 cap PO ONCE PRN Lactose 12/25/18 12/25/23 History Intolerance apixaban 5 mg tablet 5 mg PO BID 07/13/22 12/25/23 History clopidogrel 75 mg tablet 75 mg PO DAILY 07/13/22 12/25/23 History losartan 25 mg tablet 12.5 mg PO DAILY 07/13/22 12/25/23 History metoprolol succinate 25 mg 25 mg PO DAILY 07/13/22 12/25/23 History tablet,extended release 24 hr rosuvastatin 20 mg tablet 20 mg PO DAILY 02/01/23 12/25/23 History sertraline 50 mg tablet 50 mg PO DAILY #90 tabs 10/05/23 12/25/23 Rx Primadophilus Bifidus DAILY 12/25/23 History Allergies Allergy/AdvReac Type Severity Reaction Status Date / Time erythromycin base Allergy Intermediate Vomiting Verified 02/01/23 13:50 [ERYTHROMYCIN BASE] meperidine [MEPERIDINE] Allergy Mild Light Verified 02/01/23 13:50 headed lactose AdvReac Mild GAS, Verified 02/01/23 13:50 BLOATING AND GI UPSET RAISED BREADS AdvReac Mild Tightening Uncoded 02/01/23 13:50 in my lungs, wheezing and shortness of breath Review of Systems Constitutional Comments: w/o fever, chills, sweats, weight changes Cardiovascular Comments: see HPI Respiratory Comments: w/o wheezing or cough exertional dyspnea Gastrointestinal Comments: nauseated, on and off W/O vomiting or abdominal pain Genitourinary Comments: w/o dysuria Exam Vital Signs (past 8 hours): - 12/25/23 22:30 12/25/23 22:31 12/25/23 22:31 Temperature Pulse Rate 65 64 Respiratory Rate 18 28 H Blood Pressure 158/70 H Pulse Oximetry 92 93 Oxygen Delivery Method Room Air Oxygen Flow Rate 12/25/23 23:00 12/26/23 00:04 12/26/23 03:13 Temperature 99 F Pulse Rate 70 114 H Respiratory Rate 16 20 Blood Pressure 179/91 H 178/99 H Pulse Oximetry 95 97 Oxygen Delivery Method Room Air Oxygen Flow Rate 0 0 12/26/23 04:45 Temperature Pulse Rate Respiratory Rate Blood Pressure 159/83 H Pulse Oximetry Oxygen Delivery Method Oxygen Flow Rate Oxygen Delivery Method Room Air Oxygen Flow Rate 0 Const Other: laying in bed in no distress HENMT Other: normocephalic Eyes Other: EOMI Resp Other: normal respiratory effort, CTA Cardio Other: irregularly irregular GI Other: w/o distension Skin Other: w/o rashes Neuro Other: w/o focal deficits Extrem Other: w/o swelling Psych Other: appropriate mood, lucid Objective ECG Impression: A-fib Labs 12/25/23 14:53 12/25/23 14:53 Labs: Laboratory Results - last 24 hr 12/25/23 12/25/23 12/25/23 14:53 20:26 23:44 WBC 6.9 RBC 4.43 Hgb 13.3 Hct 39.8 MCV 89.9 MCH 30.0 MCHC 33.4 RDW 14.7 Plt Count 183 Neut % (Auto) 62.8 Lymph % (Auto) 26.8 [place] % (Auto) 6.0 Eos % (Auto) 3.4 Baso % (Auto) 1.0 Neut # (Auto) 4300 Lymph # (Auto) 1800 [place] # (Auto) 400 Eos # (Auto) 200 Baso # (Auto) 100 PT 13.5 H INR 1.2 APTT 36 Sodium 139 Potassium 3.7 Chloride 103 Carbon Dioxide 32 BUN 12 Creatinine 0.56 Estimated GFR > 60 BUN/Creatinine Ratio 21.4 Glucose 164 H Calcium 9.7 Magnesium 1.8 Total Bilirubin 0.9 AST 31 ALT 20 Alkaline Phosphatase 90 Total Creatine Kinase 88 88 Troponin I < 0.012 < 0.012 NT-Pro-B Natriuret Pep 325 Total Protein 7.4 Albumin 4.2 Globulin 3.2 Albumin/Globulin Ratio 1.3 Lipase 78 Nasal Screen MRSA (PCR) Not detected Assessment & Plan Assessment and plan (1) CAD (coronary artery disease): Status: Acute (2) Hyperlipemia: Status: Acute (3) Hypertension: Status: Acute (4) Chest pain: Status: Acute Assessment & Plan narrative: Chest Pain - known CAD. Had STEMI and rapid A-fib on June 20 2023, hospitalized and had 1 drug eluting stent into 99% occluded LAD. EF was normal, she had LVH and diastolic dysfunction,. - initial workup in the ED negative for ACS - placed in observation, on telemetry - echocardiogram pending - continue Plavix, had ASA 324 x 1 in ED - continue Lipitor HTN - uncontrolled - at home on Losartan 12.5 mg daily and Toprol XL 25 mg daily - continue with same in am - given metoprolol po 25 mg x 1 on admission - prn iv metoprolol for uncontrolled HTN Atrial Fibrilation - she denies A-fib - continue Eliquis and BB for rate control Anxiety / Depression - Zoloft 50 mg daily
[2023-12-26] MEDS: LOSARTAN 25 MG TABLET 12.5 MG PO (08:19)
[2023-12-26] MEDS: CLOPIDOGREL 75 MG TABLET PO (08:19)
[2023-12-26] MEDS: METOPROLOL ER 25 MG TABLET PO (08:19)
[2023-12-26] MEDS: ATORVASTATIN 20 MG TABLET 40 MG PO (08:19)
[2023-12-26] MEDS: APIXABAN 5 MG TABLET PO (08:19)
[2023-12-26] MEDS: SODIUM CHLORIDE 0.9% FLUSH 10 ML IV (08:20)
[2023-12-26] MEDS: SERTRALINE 50 MG TABLET PO (08:20)
[2023-12-26] MEDS: MULTIVITAMIN 1 TABLET 1 TAB PO (08:20)
--- NOTE | 2023-12-26 12:54 | PM.HP.1 ---
History of Present Illness History of Present Illness Date Patient Seen: 12/26/23 Time Patient Seen: 12:54 Date of Onset of Symptoms: 12/25/23 Chief complaint: chest pain t-3, hx of heart attack, similar symp Narrative: The patient is a 78-year-old female with history of CAD with an LAD stent which was placed in May of 2022. She presents now with intermittent chest pain for the last 3 days. The pain is described as left-sided, and parasternal. The pain is associated with bending over, exertion such as walking to the mailbox but not palpation. She also notes some exertional dyspnea. She denies any palpitations, or associated nausea, vomiting, or diaphoresis. She had a normal resting electrocardiogram and serial troponins have been normal. She is followed by Dr. [facility]. She has an appointment with him tomorrow. She denies recent URI symptoms including rhinorrhea, cough or shortness of breath. She does have some right eye redness which has been intermittent for the last week or 2. This has been somewhat itchy and had some discharge. She denies any orthopnea, or leg edema. No recent difficulty with constipation, diarrhea or urination. She is hypertensive. Her heart score was 5. [facility] Medical History CAD (coronary artery disease) Carpal tunnel syndrome (05/02/08) Anxiety about health Breast cancer Irritable bowel (Unknown) Arm fracture, right (12/2007) Herpes (Unknown) Carpal tunnel syndrome (04/2008) Osteopenia (Unknown) Depression (Unknown) Hypertension (Unknown) Hyperlipemia (Unknown) Alopecia (Unknown) Rosacea (Unknown) Hypoglycemia (Unknown) Surgical History Hx of breast biopsy History of removal of ovarian cyst (1970) History of tonsillectomy Family History Brother Mouth cancer Cancer Heart disease Father Stroke Diabetes mellitus Gallstones Mother Hypertension Heart disease Social History household members: family, children and none Smoking Status: Never smoker second hand exposure: No alcohol intake: former substance use type: does not use Meds Home Medications and Allergies Home Medications Medication Instructions Recorded Confirmed Type multivitamin (Multiple Vitamins 1 tab PO QDAY ##0 04/26/17 12/25/23 History tablet) Flaxseed Oil 1,000 mg PO DAILY 12/25/18 12/25/23 History LACTAID 1 cap PO ONCE PRN Lactose 12/25/18 12/25/23 History Intolerance apixaban 5 mg tablet 5 mg PO BID 07/13/22 12/25/23 History clopidogrel 75 mg tablet 75 mg PO DAILY 07/13/22 12/25/23 History losartan 25 mg tablet 12.5 mg PO DAILY 07/13/22 12/25/23 History metoprolol succinate 25 mg 25 mg PO DAILY 07/13/22 12/25/23 History tablet,extended release 24 hr rosuvastatin 20 mg tablet 20 mg PO DAILY 02/01/23 12/25/23 History sertraline 50 mg tablet 50 mg PO DAILY #90 tabs 10/05/23 12/25/23 Rx Primadophilus Bifidus DAILY 12/25/23 History Allergies Allergy/AdvReac Type Severity Reaction Status Date / Time erythromycin base Allergy Intermediate Vomiting Verified 02/01/23 13:50 [ERYTHROMYCIN BASE] meperidine [MEPERIDINE] Allergy Mild Light Verified 02/01/23 13:50 headed lactose AdvReac Mild GAS, Verified 02/01/23 13:50 BLOATING AND GI UPSET RAISED BREADS AdvReac Mild Tightening Uncoded 02/01/23 13:50 in my lungs, wheezing and shortness of breath Review of Systems Review of Systems Narrative: All else reviewed and otherwise unremarkable except as noted in the history and physical. Exam Vital Signs (past 8 hours): - 12/26/23 08:00 12/26/23 08:19 12/26/23 08:19 Temperature 98.2 F Pulse Rate 97 H 115 H Respiratory Rate 18 Blood Pressure 176/90 H 159/83 H Pulse Oximetry 96 Oxygen Flow Rate 0 12/26/23 09:00 12/26/23 12:00 Temperature 98.3 F Pulse Rate 68 63 Respiratory Rate 18 Blood Pressure 182/79 H Pulse Oximetry 95 Oxygen Flow Rate 0 Oxygen Delivery Method Room Air Oxygen Flow Rate 0 Narrative Exam Narrative: NAD, no acute distress, normal affect. Normocephalic skull, EOMI, pupils are symmetric, anicteric sclera. Right eye is somewhat red in terms of scleral injection. Oropharynx is unremarkable, no facial droop. Neck is supple, no adenopathy, midline trachea. Normal thyroid. Lungs are clear with normal rate and effort. Heart is regular without murmur gallop or rub. Abdomen is soft, nondistended and nontender. Extremities are free of edema. Good pedal and radial pulses. Skin is free of rash or lesions, no ecchymosis. Joints are not swollen or deformed. Objective ECG Impression: NSR without acute ST changes. Sinus rhythm rate 81 VT interval 186 QRS [address] changes PAC noted Imaging Chest x-ray: My impression: No acute findings. Radiologist's impression: No acute cardiopulmonary abnormality is seen. Labs 12/25/23 14:53 12/25/23 14:53 Labs: Laboratory Results - last 24 hr 12/25/23 12/25/23 12/25/23 14:53 20:26 23:44 WBC 6.9 RBC 4.43 Hgb 13.3 Hct 39.8 MCV 89.9 MCH 30.0 MCHC 33.4 RDW 14.7 Plt Count 183 Neut % (Auto) 62.8 Lymph % (Auto) 26.8 [place] % (Auto) 6.0 Eos % (Auto) 3.4 Baso % (Auto) 1.0 Neut # (Auto) 4300 Lymph # (Auto) 1800 [place] # (Auto) 400 Eos # (Auto) 200 Baso # (Auto) 100 PT 13.5 H INR 1.2 APTT 36 Sodium 139 Potassium 3.7 Chloride 103 Carbon Dioxide 32 BUN 12 Creatinine 0.56 Estimated GFR > 60 BUN/Creatinine Ratio 21.4 Glucose 164 H Calcium 9.7 Magnesium 1.8 Total Bilirubin 0.9 AST 31 ALT 20 Alkaline Phosphatase 90 Total Creatine Kinase 88 88 Troponin I < 0.012 < 0.012 NT-Pro-B Natriuret Pep 325 Total Protein 7.4 Albumin 4.2 Globulin 3.2 Albumin/Globulin Ratio 1.3 Lipase 78 Nasal Screen MRSA (PCR) Not detected Assessment & Plan Assessment & Plan narrative: Chest Pain in a patient with LAD stenting, present on admission and improved. - known CAD. Had STEMI and rapid A-fib on June 20 2023, hospitalized and had 1 drug eluting stent into 99% occluded LAD. EF was normal, she had LVH and diastolic dysfunction,. - initial workup in the ED negative for ACS - placed in observation, on telemetry - echocardiogram pending - continue Plavix, had ASA 324 x 1 in ED - continue Lipitor HTN which is poorly controlled, present on admission and active. - uncontrolled - at home on Losartan 12.5 mg daily and Toprol XL 25 mg daily - continue with same in am - given metoprolol po 25 mg x 1 on admission - prn iv metoprolol for uncontrolled HTN Premature atrial contractions, present on admission and active. - she denies A-fib (it is unclear if she has a history of paroxysmal atrial fibrillation) - continue Eliquis and BB for rate control Anxiety / Depression - Zoloft 50 mg daily Obesity class 2 with BMI of 39, present on admission and active. Breast cancer with history of left mastectomy, present on admission and active. -she has stopped following up with her oncologist, Dr. Hernandez. Is unclear what his recommendations were when she last saw him. She is at this point not wanting to take any medications to treat her breast cancer. Time Spent With Patient Time with patient: 30 to 49 minutes with 50% spent counseling/coordinating care Quality MIPS - Admit The patient?s Advance Care plan is not present because I confirmed today that the patient does not wish or was not able to name a surrogate decision maker or provide an Advance Care Plan.: Yes MIPS - Meds 'Current medications' to include all prescriptions, [id number] products, herbals, cannabis/cannabidiol products, and vitamin/mineral/dietary (nutritional) supplements. I have utilized all available resources to obtain, update, or review the patient?s current medications. [If Yes, STOP here]: Yes
--- NOTE | 2023-12-26 13:20 | CM.DANOTE ---
DCP Assessment Note Pt is a 78yo F here following chest pains. Pt has a PMH of a heart attack in May 2023 and breast cancer. PCP None listed. Hx of Jose Junior, unsure of who is her primary now. HOUSEKEEPING WORKER encouraged her to contact [place] to see who she was assigned to. Licensed Aircraft Maintenance Engineer: Ben at [facility] and self pay HOUSEKEEPING WORKER reviewed EMR. Per provider in morning rounds, echo pending. Either dc today or tomorrow home. No obvious CM needs. HOUSEKEEPING WORKER entered room and introduced self and role. Pt was standing and walking throughout room. Pt reports living alone in [place]. Son Rubens ([phone]) lives locally and is POA. Sister Adwoa (p [phone]) pt is not as close with but pt gave us permission to contact her in event of an emergency. Pt does not use DME at baseline but has walker/cane from when her mother needed one. Pt uses Meals on Wheels. No hx of HH for herself but her mom used an agency she cannot remember name of. Pt is indep/drives at baseline. Pt reports having numerous supportive friends in area that assist her as needed. Pt inquired about rehab/ALFs. HOUSEKEEPING WORKER answered questions to best of ability. HOUSEKEEPING WORKER provided pt with Senior Resources booklet for more information. Pt appreciative. Plan: likely home when medically stable and FU with sanitor. Transport with self in POV or friend. No identified CM needs at this time. CM team will continue to follow as needed. BRY Schofield Discharge Planning/Care Management CM Discharge Assessment Start: 12/26/23 13:16 Freq: Status: Active Protocol: Document 12/26/23 13:16 (Rec: 12/26/23 13:20 [id number]) Discharge Planning Assessment Assigned Precision Devices Inspector/Tester BRY Villalobos DPOA/Assigned Designee Name elodia Art Contact Information [phone] Advance Directives? No History Provided By Patient,Medical Record Prior Living Arrangements House Household Members none Type of transporation used prior to Drives own vehicle admit Independent with ADL's Yes Is patient alert and oriented? Yes Comment does not use at baseline but has access to cane/walker from her mother Discharge Plan Home Community Services Home Delivered Meals Transportation Arrangement drive self/friends can trasport if needed Referrals Initiated None needed Whiteboard Updated in Patient Room with Yes name and ext. # of Precision Devices Inspector/Tester Review Status In Process Next Review Type Continued Stay Review
--- NOTE | 2023-12-26 15:10 | PM.DS.1 ---
History of Present Illness History of Present Illness Chief complaint: chest pain t-3, hx of heart attack, similar symp Narrative: The patient is a 78-year-old female with history of CAD with an LAD stent which was placed in May of 2022. She presents now with intermittent chest pain for the last 3 days. The pain is described as left-sided, and parasternal. The pain is associated with bending over, exertion such as walking to the mailbox but not palpation. She also notes some exertional dyspnea. She denies any palpitations, or associated nausea, vomiting, or diaphoresis. She had a normal resting electrocardiogram and serial troponins have been normal. She is followed by Dr. [facility]. She has an appointment with him tomorrow. She denies recent URI symptoms including rhinorrhea, cough or shortness of breath. She does have some right eye redness which has been intermittent for the last week or 2. This has been somewhat itchy and had some discharge. She denies any orthopnea, or leg edema. No recent difficulty with constipation, diarrhea or urination. She is hypertensive. Her heart score was 5. Discharge Providers Provider Date of admission: 12/25/23 21:50 Discharge Date: 12/26/23 Primary care physician: Doctor Mil MD Consults: Discussed results and treatment plan with her flat polisher, Dr. Contreras. Discharge provider: Prince Dickens MD Summary Hospital Course Discharge Diagnosis: 1. Chest Pain in a patient with LAD stenting, present on admission and improved. - known CAD. Had STEMI and rapid A-fib on June 20 2023, hospitalized and had 1 drug eluting stent into 99% occluded LAD. EF was normal, she had LVH and diastolic dysfunction,. - initial workup in the ED negative for ACS - placed in observation, on telemetry - echocardiogram normal - continue Plavix, had ASA 324 x 1 in ED - continue Lipitor -t roponins normal x3. 2. HTN which is poorly controlled, present on admission and active. - uncontrolled - at home on Losartan 12.5 mg daily and Toprol XL 25 mg daily - continue with same in am - given metoprolol po 25 mg x 1 on admission - suspect poor control at home. She will bring her cuff to follow up appointment tomorrow. She is given amlodipine 5 daily here. We will send a prescription for this to start as well. Anticipate up titration of her beta shannan from Cardiology in the next several days. 3. Premature atrial contractions, present on admission and active. - she denies A-fib (it is unclear if she has a history of paroxysmal atrial fibrillation) - continue Eliquis and BB for rate control 4. Anxiety / Depression - Zoloft 50 mg daily 5. Obesity class 2 with BMI of 39, present on admission and active. 6. Breast cancer with history of left mastectomy, present on admission and active. -she has stopped following up with her oncologist, Dr. Hernandez. Is unclear what his recommendations were when she last saw him. She is at this point not wanting to take any medications to treat her breast cancer. Hospital Course: She is admitted for chest pain which was somewhat atypical in nature. The pain had elements of being worsened with position changes and elements of being exertional induced. Her electrocardiogram and troponins were fairly unremarkable. A 2D echo was obtained on the day of discharge and was also fairly unremarkable. She is discussed with her flat polisher, she has an appointment with him tomorrow at 1:15 p.m.. He recommended discharge home and follow up with him tomorrow in office. Anticipate probable outpatient stress test. In addition she did complain of recurrent redness in her right eye. She has some eyedrops which had apparently run out some time ago and I will send a new prescription for antibacterial eye drops for the right eye for 1 week. I also discussed the fact that she has been diagnosed with breast cancer with a left mastectomy. She stopped going to her oncologist, Dr. Hernandez, without any kind of in-depth discussion regarding her reluctance to pursue any type of ongoing oral therapy for her cancer. I have encouraged her to follow up with Dr. Hernandez to least discuss her perceptions and wishes. Status at Discharge Cognitive/behavioral status at discharge: oriented Functional status at discharge: independent ambulation Overall status at discharge: patient is back to baseline Time Spent with Patient Time spent: Greater than 30 minutes Exam Vital Signs (past 8 hours): - 12/26/23 08:00 12/26/23 08:19 12/26/23 08:19 Temperature 98.2 F Pulse Rate 97 H 115 H Respiratory Rate 18 Blood Pressure 176/90 H 159/83 H Pulse Oximetry 96 Oxygen Flow Rate 0 12/26/23 09:00 12/26/23 12:00 12/26/23 13:27 Temperature 98.3 F Pulse Rate 68 63 Respiratory Rate 18 Blood Pressure 182/79 H 180/77 H Pulse Oximetry 95 Oxygen Flow Rate 0 12/26/23 14:02 Temperature Pulse Rate Respiratory Rate Blood Pressure 174/75 H Pulse Oximetry Oxygen Flow Rate Oxygen Delivery Method Room Air Oxygen Flow Rate 0 Narrative Exam Narrative: No acute distress Lungs are clear Heart is regular without murmur, and has occasional extra beats. Abdomen is non-distended. Extremities are free of edema. Objective ECG Impression: NSR, PAC's Imaging Chest x-ray: My impression: Clear Radiologist's impression: No acute cardiopulmonary abnormality is seen. Labs 12/25/23 14:53 12/25/23 14:53 Labs: Laboratory Results - last 24 hr 12/25/23 12/25/23 12/25/23 14:53 20:26 23:44 WBC 6.9 RBC 4.43 Hgb 13.3 Hct 39.8 MCV 89.9 MCH 30.0 MCHC 33.4 RDW 14.7 Plt Count 183 Neut % (Auto) 62.8 Lymph % (Auto) 26.8 [place] % (Auto) 6.0 Eos % (Auto) 3.4 Baso % (Auto) 1.0 Neut # (Auto) 4300 Lymph # (Auto) 1800 [place] # (Auto) 400 Eos # (Auto) 200 Baso # (Auto) 100 PT 13.5 H INR 1.2 APTT 36 Sodium 139 Potassium 3.7 Chloride 103 Carbon Dioxide 32 BUN 12 Creatinine 0.56 Estimated GFR > 60 BUN/Creatinine Ratio 21.4 Glucose 164 H Calcium 9.7 Magnesium 1.8 Total Bilirubin 0.9 AST 31 ALT 20 Alkaline Phosphatase 90 Total Creatine Kinase 88 88 Troponin I < 0.012 < 0.012 NT-Pro-B Natriuret Pep 325 Total Protein 7.4 Albumin 4.2 Globulin 3.2 Albumin/Globulin Ratio 1.3 Lipase 78 Nasal Screen MRSA (PCR) Not detected [facility] Medical History CAD (coronary artery disease) Carpal tunnel syndrome (05/02/08) Anxiety about health Breast cancer Irritable bowel (Unknown) Arm fracture, right (12/2007) Herpes (Unknown) Carpal tunnel syndrome (04/2008) Osteopenia (Unknown) Depression (Unknown) Hypertension (Unknown) Hyperlipemia (Unknown) Alopecia (Unknown) Rosacea (Unknown) Hypoglycemia (Unknown) Surgical History Hx of breast biopsy History of removal of ovarian cyst (1970) History of tonsillectomy Family History Brother Mouth cancer Cancer Heart disease Father Stroke Diabetes mellitus Gallstones Mother Hypertension Heart disease Social History household members: none Smoking Status: Never smoker second hand exposure: No alcohol intake: former substance use type: does not use Discharge Assessment & Plan Assessment and Plan Assessment: 1. Chest Pain in a patient with LAD stenting, present on admission and improved. - known CAD. Had STEMI and rapid A-fib on June 20 2023, hospitalized and had 1 drug eluting stent into 99% occluded LAD. EF was normal, she had LVH and diastolic dysfunction,. - initial workup in the ED negative for ACS - placed in observation, on telemetry - echocardiogram normal - continue Plavix, had ASA 324 x 1 in ED - continue Lipitor -t roponins normal x3. 2. HTN which is poorly controlled, present on admission and active. - uncontrolled - at home on Losartan 12.5 mg daily and Toprol XL 25 mg daily - continue with same in am - given metoprolol po 25 mg x 1 on admission - suspect poor control at home. She will bring her cuff to follow up appointment tomorrow. She is given amlodipine 5 daily here. We will send a prescription for this to start as well. Anticipate up titration of her beta shannan from Cardiology in the next several days. 3. Premature atrial contractions, present on admission and active. - she denies A-fib (it is unclear if she has a history of paroxysmal atrial fibrillation) - continue Eliquis and BB for rate control 4. Anxiety / Depression, present on admission and stable. - Zoloft 50 mg daily 5. Obesity class 2 with BMI of 39, present on admission and active. 6. Breast cancer with history of left mastectomy, present on admission and active. -she has stopped following up with her oncologist, Dr. Hernandez. Is unclear what his recommendations were when she last saw him. She is at this point not wanting to take any medications to treat her breast cancer. Plan of Treatment: Discharge home tonight. She will call with a blood pressure this evening. She will bring a blood pressure cuff to her cardiology appointment tomorrow for calibration. She will shrimp picker amlodipine 5 daily and her eyedrops tomorrow from a local pharmacy. The nature of her workup and plan was shared with her flat polisher and the discharge plan was formulated in conjunction with her flat polisher. She has a scheduled appointment with him tomorrow at 1:15 p.m.. Discharge Plan Discharge Plan Patient Disposition: Home Provider Discharge Comment: Discussed with primary flat polisher, reviewed echo and troponins. He recommends discharge home and follow up with him in clinic tomorrow as scheduled. Dr. Contreras. Discharge orders & Medications Prescriptions: New ofloxacin 0.3 % Drops 1 drops EYE-RIGHT QID Qty: 1 0RF amlodipine [Norvasc] 5 mg Tablet 5 mg PO DAILY Qty: 30 0RF Continued LACTAID 1 cap PO ONCE PRN (Reason: Lactose Intolerance) Flaxseed Oil 1,000 mg PO DAILY multivitamin [Multiple Vitamins] 1 EACH tablet 1 tab PO QDAY Qty: 0 metoprolol succinate 25 mg tablet extended release 24 hr 25 mg PO DAILY clopidogrel 75 mg tablet 75 mg PO DAILY apixaban 5 mg tablet 5 mg PO BID losartan 25 mg tablet 12.5 mg PO DAILY sertraline 50 mg tablet 50 mg PO DAILY Qty: 90 3RF rosuvastatin 20 mg tablet 20 mg PO DAILY Patient Comments: TAKE 1 TABLET BY MOUTH ONCE DAILY Primadophilus Bifidus tablet DAILY Medication counseling provided by Pharmacist: No Follow up/Referrals: Doctor Jaeger MD [Primary Care Provider] - Discharge Health Status Multidrug resistant organism: No MDRO Diet/Activity/Treatments Diet: Diet as Tolerated Skin/Wound/Dressing Care Report to your healthcare provider any signs of infection, such as:: increased pain Visit Report/Discharge Packet Stand Alone Forms: Patient Portal/API Discharge Data Primary Care Provider: Doctor Mil Attending Provider: Tino Sweeney Admit Date/Time: 12/25/23 21:50
[2023-12-26] MEDS: AMLODIPINE 5 MG TABLET PO (15:37)
--- NOTE | 2023-12-26 16:30 | PC.NURSE ---
Discharge Note Patient A&O, VSS, RA, no complaints of pain/discomfort. Discharge instructions reviewed with patient, all question/concerns addressed. PIV/TELE discontinued. Patient able to dress self and pack all belongings. 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 Patient taken down via wheelchair to POV.
== END 2023-12-26 16:15 | disposition home or self-care (01) ==
LOC: ED 19:45 → AC 21:51 → ICU 22:46
PROVIDERS: Emergency Medicine; Admitting Provider Internal Medicine; Emergency Provider Emergency Medicine; Referring Provider Emergency Medicine; Visit Provider Internal Medicine
DX: R07.9 Chest pain, unspecified (principal); I25.10 Atherosclerotic heart disease of native coronary artery without angina pectoris; E78.5 Hyperlipidemia, unspecified; I10 Essential (primary) hypertension; F41.9 Anxiety disorder, unspecified; F32.A Depression, unspecified; Z95.5 Presence of coronary angioplasty implant and graft; I49.1 Atrial premature depolarization; E66.9 Obesity, unspecified; Z68.39 Body mass index [BMI] 39.0-39.9, adult; I25.2 Old myocardial infarction; Z79.01 Long term (current) use of anticoagulants; C50.919 Malignant neoplasm of unspecified site of unspecified female breast; I48.0 Paroxysmal atrial fibrillation
CPT/HCPCS: 36415; 71045; 80053; 80061; 82550; 83690; 83704; 83735; 83880; 84484; 85025; 85610; 85730; 87797; 93005; 93306; 96374; 99284; 99285; G0378

== ENCOUNTER → 2024-08-29 13:41 | Outpatient (CLI) | payer OTHER, SELFPAY ==
[2024-08-16 18:37] VITALS: BMI 38.9
[2024-08-29 14:35] LABS: Add Manual Diff / Slide Review NO; Basophils Absolute Auto 100 /uL (0-100); Eosinophils Absolute Auto 200 /uL (0-450); Eosinophils Percent Auto 3.2 % (2-4); Hematocrit 38.7 % (36-46); Lymphocytes Absolute Auto 1300 /uL (1100-4500); Lymphocytes Percent Auto 20.8 % (25-40); Mean Corpuscular HGB Conc 33.7 % (30-36); Mean Corpuscular Hemoglobin 30.7 PG (26-34); Monocytes Absolute Auto 500 /uL (0-900); Neutrophils Absolute Auto 4200 /uL (1500-7000); Platelet Count 195 X10^3/uL (150-400); Red Blood Cell Count 4.25 X10^6/uL (4.0-5.2); Red Cell Distribution Width 15.2 % (11.6-14.8); White Blood Cell Count 6.2 X10^3/uL (4.5-11.0)
[2024-08-29 14:42] LABS: Hemoglobin A1C% w Est Avg Glu 6.3 % (4.0-6.0)
[2024-08-29 15:00] LABS: Alanine Aminotransferase 19 IU/L (<35); Albumin 3.9 g/dL (3.5-5.0); Albumin Globulin Ratio 1.4 (1.0-2.8); Alkaline Phosphatase 94 U/L (38-126); Aspartate Aminotransferase 35 IU/L (14-36); Bilirubin Total 1.1 mg/dL (0.2-1.3); Blood Urea Nitrogen 12 mg/dL (7-17); Calcium 9.5 mg/dL (8.4-10.2); Carbon Dioxide 29 mmol/L (22-32); Chloride 104 mmol/L (98-107); Cholesterol 159 mg/dL (140-199); Estimated Glomerular Filt Rate > 60 mL/min (>60); Globulin 2.8 g/dL (1.7-4.1); Glucose 115 mg/dL (80-110); HDL Cholesterol 39 mg/dL (40-60); HEMOLYSIS 53 (0-50); LDL Cholesterol Calculated 88 mg/dL (<100); Potassium 4.6 mmol/L (3.4-5.1); Sodium 137 mmol/L (137-145); Total Protein 6.7 g/dL (6.3-8.2); Triglycerides 158 mg/dL (35-150)
[2024-08-29 15:38] LABS: TSH w/ Reflex to FT4 1.54 uIU/mL (0.47-4.68)
[2024-08-29 16:14] LABS: Folate 9.2 ng/mL (2.76-20.0); Vitamin B12 320 pg/mL (239-931)
== END ==
LOC: LAB 13:43
PROVIDERS: PCP Student in an Organized Health Care Education/Training Program; Referring Provider Student in an Organized Health Care Education/Training Program; Visit Provider Student in an Organized Health Care Education/Training Program
DX: R10.11 Right upper quadrant pain (principal); R73.9 Hyperglycemia, unspecified; I25.10 Atherosclerotic heart disease of native coronary artery without angina pectoris; R20.2 Paresthesia of skin; R52 Pain, unspecified; R53.83 Other fatigue
CPT/HCPCS: 36415; 80053; 80061; 82607; 82746; 83036; 84443; 85025

== ENCOUNTER 2024-12-18 11:46 | Emergency (ER) | payer OTHER, SELFPAY ==
[2024-08-16 18:37] VITALS: BMI 38.9
[2024-12-18 11:55] VITALS: BP 196/96; PULSE 61; RESP 16; TEMP 37; O2SAT 99; BMI 36.6
--- NOTE | 2024-12-18 12:01 | DI.RAD.S_ITS ---
PROCEDURE: XR RIBS LT MIN 3V W CXR1V INDICATIONS: fall on ice, L rib pain bruising TECHNIQUE: 2 views of the ribs were acquired, along with a single view chest. COMPARISON: None. FINDINGS: Surgical changes and devices: None. Bones and chest wall: No fractures or dislocations. No suspicious bony lesions. Overlying soft tissues appear unremarkable. Lungs and pleura: No pleural effusions or pneumothorax. Lungs appear clear. Mediastinum: Mediastinal contours appear normal. Heart size is normal. IMPRESSION: No displaced rib fracture or pneumothorax. Dictated by: Giuseppe Rodriguez M.D. on 12/18/2024 at 13:36 Approved by: Giuseppe Rodriguez M.D. on 12/18/2024 at 13:37
--- NOTE | 2024-12-18 12:13 | ED.FALL ---
HPI - Fall <Renetta Chan PA-C - Last Filed: 12/18/24 19:37> General Chief Complaint: Trauma Stated Complaint: fell on porch and landed on left side of back Time Seen by Provider: 12/18/24 12:13 History of Present Illness HPI Narrative: Ms. Ybarra is a 79-year-old female with a past medical history of hypertension, hyperlipidemia, CAD, on Eliquis and Plavix who presents to the emergency department for left flank pain after she slipped and fell on her icy porch landing on her left flank/back this morning. Patient states she has a wood porch that has 1 step down to the grass. States that she had a mechanical slip and fall while going onto the 1st step and she landed on the step hitting her left flank directly on the edge of the wood. At this time she reports pain on her left back/flank region and some soreness of her left collar bone. She has been ambulatory but has significant pain with going from sitting to standing positions and with bending forward. Denies chest pain, shortness of breath, dizziness, lightheadedness, abdominal pain, hand pain, wrist pain, elbow pain, knee pain, lower extremity pain. She is adamant that she did not hit her head or lose consciousness and is refusing head CT scan. Related Data Home Medications Medication Instructions Recorded Confirmed multivitamin (Multiple Vitamins 1 tab PO QDAY ##0 04/26/17 12/20/24 tablet) Flaxseed Oil 1,000 mg PO DAILY 12/25/18 12/20/24 LACTAID 1 cap PO ONCE PRN Lactose 12/25/18 12/20/24 Intolerance apixaban 5 mg tablet 5 mg PO BID 07/13/22 12/20/24 clopidogrel 75 mg tablet 75 mg PO DAILY 07/13/22 12/20/24 metoprolol succinate 25 mg 25 mg PO DAILY 07/13/22 12/20/24 tablet,extended release 24 hr rosuvastatin 20 mg tablet 30 mg PO DAILY 08/19/24 12/20/24 sennosides 8.6 mg tablet (Natural 8.6 mg PO DAILY 08/19/24 12/20/24 Vegetable Laxative (sennosides)) Previous Rx's Medication Instructions Recorded sertraline 50 mg tablet 50 mg PO DAILY #90 tabs 10/07/24 hydrocodone 5 mg-acetaminophen 325 1 tab PO Q6H PRN pain (scale score 12/18/24 mg tablet 7-10) #10 tabs lidocaine 5 % topical patch 1 patch topical DAILY #30 ea 12/18/24 (Lidoderm) cyclobenzaprine 5 mg tablet 5 mg PO TID PRN muscle spasm #60 12/20/24 tabs losartan 25 mg tablet 50 mg (2 x 25 mg) PO DAILY #60 tabs 12/20/24 Allergies Allergy/AdvReac Type Severity Reaction Status Date / Time erythromycin base Allergy Intermediate Vomiting Verified 12/20/24 14:06 [ERYTHROMYCIN BASE] meperidine [MEPERIDINE] Allergy Mild Light Verified 12/20/24 14:06 headed lactose AdvReac Mild GAS, Verified 12/20/24 14:06 BLOATING AND GI UPSET RAISED BREADS AdvReac Mild Tightening Uncoded 12/20/24 14:06 in my lungs, wheezing and shortness of breath Review of Systems <Renetta Chan PA-C - Last Filed: 12/18/24 19:37> Review of Systems ROS Unobtainable: All systems reviewed & are unremarkable except as noted in HPI and below Patient History <Renetta Chan PA-C - Last Filed: 12/18/24 19:37> Medical History CAD (coronary artery disease) Carpal tunnel syndrome (05/02/08) Anxiety about health Breast cancer Irritable bowel (Unknown) Arm fracture, right (12/2007) Herpes (Unknown) Carpal tunnel syndrome (04/2008) Osteopenia (Unknown) Depression (Unknown) Hypertension (Unknown) Hyperlipemia (Unknown) Alopecia (Unknown) Rosacea (Unknown) Hypoglycemia (Unknown) Surgical History Hx of breast biopsy History of removal of ovarian cyst (1970) History of tonsillectomy Family History Brother Mouth cancer Cancer Heart disease Father Stroke Diabetes mellitus Gallstones Mother Hypertension Heart disease Social History household members: none Smoking Status: Never smoker second hand exposure: No alcohol intake: former substance use type: does not use Smoking Status: Never smoker Exam <Renetta Chan PA-C - Last Filed: 12/18/24 19:37> Narrative Exam Narrative: GENERAL: 79 year old patient appears stated age. Well-developed patient, in mild discomfort with moving, no distress sitting in wheelchair. HEAD: Atraumatic. Normocephalic. EYES: PERRL. Extraocular motions intact. No scleral icterus. No injection or drainage. ENT: Nose without bleeding, purulent drainage. Throat without erythema, tonsillar hypertrophy or exudate. Airway patent. NECK: Trachea midline. Cervical ROM intact. CARDIOVASCULAR: Regular rate and rhythm. RESPIRATORY: ?Nonlabored respirations. ?Speaking in clear, full sentences. ?Clear to auscultation. Breath sounds equal bilaterally. No wheezes, rales, or rhonchi. ?Some L flank pain with deep breath. GASTROINTESTINAL: Abdomen soft, non-tender, nondistended. EXTREMITIES: No edema or joint tenderness. Full adduction/abduction of bilateral shoulders. Mild discomfort of left collarbone but no palpable defect or tenderness to palpation. No tenderness to palpation of bilateral wrists, ankles, knees, elbows. BACK: Left flank / CVA region tenderness to palpation and some palpable swelling. No flail chest. No midline spinal tenderness. NEURO: AOx3. ?Clear speech. ?Moves all 4 extremities appropriately. SKIN: No rash or erythema of visible areas Initial Vital Signs Initial Vital Signs: Vital Signs Temperature 98.6 F 12/18/24 11:55 Pulse Rate 61 12/18/24 11:55 Respiratory Rate 16 12/18/24 11:55 Blood Pressure 196/96 H 12/18/24 11:55 Pulse Oximetry 99 12/18/24 11:55 Oxygen Delivery Method Room Air 12/18/24 11:55 <Raymond Castanon MD - Last Filed: 12/31/24 07:52> Initial Vital Signs Initial Vital Signs: Vital Signs Temperature 98.6 F 12/18/24 11:55 Pulse Rate 61 12/18/24 11:55 Respiratory Rate 16 12/18/24 11:55 Blood Pressure 196/96 H 12/18/24 11:55 Pulse Oximetry 99 12/18/24 11:55 Oxygen Delivery Method Room Air 12/18/24 11:55 Course <Renetta Chan PA-C - Last Filed: 12/18/24 19:37> Orders Ordered: Discontinued Medications Hydrocodone Bitart/Acetaminophen (Hydrocodone/Acet 5/325 Tablet) 1 tab PO NOW ONE Stop: 12/18/24 12:28 Last Admin: 12/18/24 12:37 Dose: 1 tab Documented By: JAYY Lidocaine (Lidocaine 5% Patch) 1 each TOP NOW ONE Stop: 12/18/24 17:40 Last Admin: 12/18/24 17:50 Dose: 1 each Documented By: YARITZA Vital Signs Vital signs: Vital Signs - 8 hr 12/18/24 11:55 12/18/24 14:13 12/18/24 16:58 Temperature 98.6 F Pulse Rate 61 58 L 60 Respiratory Rate 16 16 20 Blood Pressure 196/96 H 206/93 H 198/97 H Pulse Oximetry 99 97 97 Oxygen Delivery Method Room Air Room Air Room Air <Raymond Castanon MD - Last Filed: 12/31/24 07:52> Orders Ordered: Discontinued Medications Hydrocodone Bitart/Acetaminophen (Hydrocodone/Acet 5/325 Tablet) 1 tab PO NOW ONE Stop: 12/18/24 12:28 Last Admin: 12/18/24 12:37 Dose: 1 tab Documented By: JAYY Lidocaine (Lidocaine 5% Patch) 1 each TOP NOW ONE Stop: 12/18/24 17:40 Last Admin: 12/18/24 17:50 Dose: 1 each Documented By: YARITZA Vital Signs Vital signs: Vital Signs - 8 hr 12/18/24 11:55 12/18/24 14:13 12/18/24 16:58 Temperature 98.6 F Pulse Rate 61 58 L 60 Respiratory Rate 16 16 20 Blood Pressure 196/96 H 206/93 H 198/97 H Pulse Oximetry 99 97 97 Oxygen Delivery Method Room Air Room Air Room Air MDM - Fall <Renetta Chan PA-C - Last Filed: 12/18/24 19:37> Medical Records Attestation: I reviewed the patient's medical records. Lab Data 12/18/24 13:50 12/18/24 13:50 Labs: Lab Results 12/18/24 12/18/24 Range/Units 13:28 13:50 WBC 7.9 (4.5-11.0) X10^3/uL RBC 4.44 (4.0-5.2) X10^6/uL Hgb 13.4 (12.0-16.0) g/dL Hct 40.8 (36-46) % MCV 92.0 (80-100) fL MCH 30.3 (26-34) PG MCHC 32.9 (30-36) % RDW 14.6 (11.6-14.8) % Plt Count 189 (150-400) X10^3/uL Neut % (Auto) 71.9 (50-75) % Lymph % (Auto) 18.0 L (25-40) % Amador % (Auto) 5.2 (3-14) % Eos % (Auto) 3.5 (2-4) % Baso % (Auto) 1.4 (0-2) % Neut # (Auto) 5700 (0173-7901) /uL Lymph # (Auto) 1400 (7354-6792) /uL Amador # (Auto) 400 (0-900) /uL Eos # (Auto) 300 (0-450) /uL Baso # (Auto) 100 (0-100) /uL PT 11.6 (9.4-12.5) SECONDS INR 1.0 (0.9-1.3) APTT 33 (25.1-36.5) SECONDS Sodium 142 (137-145) mmol/L Potassium 3.6 (3.4-5.1) mmol/L Chloride 106 (98-107) mmol/L Carbon Dioxide 32 (22-32) mmol/L BUN 9 (7-17) mg/dL Creatinine 0.58 (0.52-1.04) mg/dL Estimated GFR > 60 (>60) mL/min BUN/Creatinine Ratio 15.5 (6-22) Glucose 111 H (80-110) mg/dL Calcium 9.0 (8.4-10.2) mg/dL Total Bilirubin 0.6 (0.2-1.3) mg/dL AST 39 H (14-36) IU/L ALT 26 (<35) IU/L Alkaline Phosphatase 108 (38-126) U/L Total Protein 7.3 (6.3-8.2) g/dL Albumin 4.3 (3.5-5.0) g/dL Globulin 3.0 (1.7-4.1) g/dL Albumin/Globulin Ratio 1.4 (1.0-2.8) Lipase 301 H (23-300) U/L Ur Bilirubin Confirm Negative (Negative) Urine RBC None seen (0-5/HPF) Urine WBC 5-10/hpf H (0-5/HPF) Ur Squamous Epith Cells 1-5 /hpf (0-5/HPF) Urine Bacteria None seen (None) Ur Culture Indicated? Specimen cultured Vol Urine Centrifuged 10ml (spun) Urine Dip Bedside Urine Glucose Negative Bedside Urine Bilirubin + 1 Bedside Urine Ketone - Negative Urine Specific Shattuck 1.030 Bedside Urine Occult Blood - Negative Bedside Urine pH 6 Bedside Urine Protein +/- 15 Bedside Urine Urobilinogen - Negative Bedside Urine Nitrite - Negative Bedside Urine Leukocytes + 70 Esterase Imaging Data Chest/Abdomen/Pelvis CT: Radiologist's Impression: PROCEDURE: CT CHEST ABD PEL W CON INDICATIONS: fall TECHNIQUE: After the administration of intravenous contrast, 5 mm thick sections acquired from the lung apices to the symphysis. 2.5 mm thick coronal and sagittal reformats were acquired. Additional 7 mm thick coronal maximum intensity projection (MIP) reformats acquired through the lungs. Optional 10-minute delayed imaging may be performed from the kidneys to the bladder. For radiation dose reduction, the following was used: automated exposure control, adjustment of mA and/or kV according to patient size. COMPARISON: [facility], CR, XR RIBS LT MIN 3V W CXR1V, 12/18/2024, 11:58. FINDINGS: Image quality: Diagnostic. CHEST: Lower Neck: No enlarged lymph nodes. Thyroid: No thyroid nodules which require sonographic evaluation. Axillae: No enlarged lymph nodes. Chest Wall: No subcutaneous gas. Lungs and Pleura: No pulmonary contusions or lacerations. No acute airspace opacities. No pneumothorax or hemothorax. Mediastinum: No mediastinal hematomas. Heart size is enlarged. No pericardial effusion. Thoracic aorta and pulmonary arteries demonstrate normal size and enhancement. 2 vessel coronary artery atherosclerotic calcifications are seen. No mediastinal or hilar adenopathy. Esophagus is normal in caliber. Small hiatal hernia. ABDOMEN: Liver: No lacerations. Gallbladder: No radiopaque gallstones or wall thickening. Biliary ducts: No biliary dilation. Pancreas: Homogenous enhancement. Spleen: Homogenous enhancement without laceration or hematoma. Adrenal Glands: Symmetric enhancement. Kidneys and Ureters: Symmetric enhancement. No hydronephrosis. No solid mass. No complex renal cystic lesion which requires follow up. Stomach and Bowel: Normal colonic caliber, without significant wall thickening. Mild fecal stasis in the colon is seen. Peritoneum: No abnormal intraperitoneal fluid. No free air. Ventral Wall: No hernia. Abdominal Nodes: No retroperitoneal or mesenteric adenopathy by size criteria. Vessels: Aorta and inferior vena cava are normal in size. PELVIS: Pelvic Organs: Unremarkable. Bladder: Normal thickness. Pelvic Nodes: No enlarged lymph nodes. Miscellaneous: No inguinal hernias are seen. Bones: Pelvic ring and hip joints appear intact. No displaced rib fractures. No acute vertebral body compression fracture. Degenerative disc disease throughout thoracic and lumbar spine is seen. IMPRESSION: 1. No evidence of traumatic injury to the chest, abdomen or pelvis. 2. Incidental findings as described above. MDM Narrative Medical decision making narrative: 79-year-old female with a past medical history of hypertension, hyperlipidemia, CAD, on Eliquis and Plavix who presents to the emergency department for left flank pain after she slipped and fell on her icy porch landing on her left flank/back this morning. Differential diagnosis includes but is not limited to rib contusion, rib fracture, blunt force trauma, strain, sprain, intra-abdominal trauma, etc. On exam patient is in no acute distress, nontoxic appearing, uncomfortable with movement and tenderness to palpation of left posterior flank region. Vital signs normal except for elevated BP of 196/96, patient states she did not take any medications this morning or last night including anti-hypertensives. No CP/SOB. She refuses head CT scan however denies any head trauma or loss of consciousness. She initially was denying any CT scans so a rib x-ray was obtained in triage. We will obtain UA to rule out gross blood, treat pain with hydrocodone-acetaminophen, evaluate x-ray prior to determining additional imaging needs. Patient has significant bruising developing of the left paraspinal lumbar region, left flank region during ED stay. Discussed my concerns that rib x-ray would not be able to rule out any type of intra-abdominal injury. Patient is agreeable to CT chest abdomen and pelvis, we will check labs prior. Labs reveal normal WBC count 7.9, RBC 4.44, hemoglobin 13.4 hematocrit 40.8. Normal renal function. Glucose 111. AST 39. Lipase just elevated at 301. UA with 5-10 urine WBCs, patient denies any dysuria or concern for UTI, she would like to wait on urine culture result for antibiotics which I am agreeable to. CT chest abdomen pelvis reveals no traumatic injury to the chest abdomen or pelvis. Specifically spleen is without laceration or hematoma, no vertebral body compression fracture. I did print out the patient's CT scan results and go over them with her including all incidental findings. Patient's workup very reassuring however patient does live alone and reports that she would like to stay in the hospital due to her left flank/back pain. Patient was provided with a walker to assist with ambulation and she does ambulate independently. Discussed with the patient supportive care of left flank contusions, a prescription was sent to her pharmacy for a short course of hydrocodone-acetaminophen if needed for severe pain in addition to lidocaine patches. Discussed risks of narcotics. Social work met with the patient as she does live alone. Patient not interested in SNF or home health at this time. We discussed the importance of gentle stretching and continued movement while she is home. She is with her friend/neighbor who will help get her home. Discussed signs and symptoms with the patient to return to the emergency department for and also the importance of following up with her PCP for asymptomatic hypertension however she did miss the last 2 doses of her medication so we discussed the importance of resuming normal home meds. She verbalized understanding of all information and is agreeable to the plan. She is stable for discharge home. <Raymond Castanon MD - Last Filed: 12/31/24 07:52> Lab Data Labs: Lab Results 12/18/24 12/18/24 Range/Units 13:28 13:50 WBC 7.9 (4.5-11.0) X10^3/uL RBC 4.44 (4.0-5.2) X10^6/uL Hgb 13.4 (12.0-16.0) g/dL Hct 40.8 (36-46) % MCV 92.0 (80-100) fL MCH 30.3 (26-34) PG MCHC 32.9 (30-36) % RDW 14.6 (11.6-14.8) % Plt Count 189 (150-400) X10^3/uL Neut % (Auto) 71.9 (50-75) % Lymph % (Auto) 18.0 L (25-40) % Amador % (Auto) 5.2 (3-14) % Eos % (Auto) 3.5 (2-4) % Baso % (Auto) 1.4 (0-2) % Neut # (Auto) 5700 (8799-2134) /uL Lymph # (Auto) 1400 (0303-6949) /uL Amador # (Auto) 400 (0-900) /uL Eos # (Auto) 300 (0-450) /uL Baso # (Auto) 100 (0-100) /uL PT 11.6 (9.4-12.5) SECONDS INR 1.0 (0.9-1.3) APTT 33 (25.1-36.5) SECONDS Sodium 142 (137-145) mmol/L Potassium 3.6 (3.4-5.1) mmol/L Chloride 106 (98-107) mmol/L Carbon Dioxide 32 (22-32) mmol/L BUN 9 (7-17) mg/dL Creatinine 0.58 (0.52-1.04) mg/dL Estimated GFR > 60 (>60) mL/min BUN/Creatinine Ratio 15.5 (6-22) Glucose 111 H (80-110) mg/dL Calcium 9.0 (8.4-10.2) mg/dL Total Bilirubin 0.6 (0.2-1.3) mg/dL AST 39 H (14-36) IU/L ALT 26 (<35) IU/L Alkaline Phosphatase 108 (38-126) U/L Total Protein 7.3 (6.3-8.2) g/dL Albumin 4.3 (3.5-5.0) g/dL Globulin 3.0 (1.7-4.1) g/dL Albumin/Globulin Ratio 1.4 (1.0-2.8) Lipase 301 H (23-300) U/L Ur Bilirubin Confirm Negative (Negative) Urine RBC None seen (0-5/HPF) Urine WBC 5-10/hpf H (0-5/HPF) Ur Squamous Epith Cells 1-5 /hpf (0-5/HPF) Urine Bacteria None seen (None) Ur Culture Indicated? Specimen cultured Vol Urine Centrifuged 10ml (spun) Urine Dip Bedside Urine Glucose Negative Bedside Urine Bilirubin + 1 Bedside Urine Ketone - Negative Urine Specific Shattuck 1.030 Bedside Urine Occult Blood - Negative Bedside Urine pH 6 Bedside Urine Protein +/- 15 Bedside Urine Urobilinogen - Negative Bedside Urine Nitrite - Negative Bedside Urine Leukocytes + 70 Esterase Discharge Plan Departure Patient Disposition: Home Clinical Impression: Contusion of left flank Fall from slipping on ice Qualifiers: Encounter type: initial encounter Qualified Code(s): W00.9XXA - Unspecified fall due to ice and snow, initial encounter Instructions: DI for Low Back Pain, DI for Contusion Activity Restrictions/Additional Instructions: Thank you for coming into the emergency room today. Because of your fall, we completed a workup including labs and a CT scan of your chest abdomen and pelvis. Your imaging showed no evidence of any traumatic injury to the intra-abdominal organs or any bone fractures. You do have bruising on your back and have likely strained the muscles in your back. It is very important to rest, hydrate, gentle stretching, cold compress for bruising alternating with warm compress for pain, take medications as prescribed. You may also take Acetaminophen 650 mg every 4-6 hours for pain. Do not exceed 3000 mg of Tylenol a day as this can cause liver damage. Do not drink alcohol with either of these medications. Return to the emergency room immediately if you develop blood in your urine or stool, severe abdominal pain, any other concerns. A urine culture was obtained today and you will be called in 3 days if it comes back positive and you need antibiotics. You have been prescribed a short course of narcotic medications. These are potentially dangerous and addictive medications that should be used carefully. While on these medications you cannot drive or operate heavy machinery. Additionally, you cannot sign legal documents or perform any duties such as this. Many people get constipated on narcotic medications so it would be advisable to discuss stool softeners with the pharmacist when you orange picker your prescription. Please understand that we cannot provide further refills of narcotics or controlled substances through the ED and your pain management will need to be through your Primary Care Provider Please follow up with your primary care doctor within the next 2-3 days for ER follow-up. (If you do not have a PCP you can call [phone]. ?to schedule an appointment with an [facility] Primary Care Provider) IF YOU DEVELOP ANY NEW OR WORSENING SYMPTOMS, RETURN TO THE ER! Please read the attached instructions, they highlight more specific treatments and interventions for you at home. Thank you for letting me participate in your care, Renetta Chan PA-C Prescriptions: New lidocaine [Lidoderm] 5 % adhesive patch,medicated 1 patch topical DAILY Qty: 30 0RF Rx Instructions: leave on most painful area for up to 12 hrs hydrocodone-acetaminophen 5-325 mg tablet 1 tab PO Q6H PRN (Reason: pain (scale score 7-10)) Qty: 10 0RF No Action LACTAID 1 cap PO ONCE PRN (Reason: Lactose Intolerance) Flaxseed Oil 1,000 mg PO DAILY cyclobenzaprine 5 mg tablet 5 mg PO TID PRN (Reason: muscle spasm) Qty: 60 0RF losartan 25 mg tablet 50 mg PO DAILY Qty: 60 3RF sennosides [Natural Veg Laxative(sennosid)] 8.6 mg tablet 8.6 mg PO DAILY multivitamin [Multiple Vitamins] 1 EACH tablet 1 tab PO QDAY Qty: 0 metoprolol succinate 25 mg tablet extended release 24 hr 25 mg PO DAILY clopidogrel 75 mg tablet 75 mg PO DAILY apixaban 5 mg tablet 5 mg PO BID sertraline 50 mg tablet 50 mg PO DAILY Qty: 90 3RF rosuvastatin 20 mg tablet 30 mg PO DAILY Patient Comments: TAKE 1 TABLET BY MOUTH ONCE DAILY Referrals: Graciela Schultz MD [Primary Care Provider] - Stand Alone Forms: Patient Portal/API/Survey ED Sign-out <Raymond Castanon MD - Last Filed: 12/31/24 07:52> Cosign ED Attending Cosignature Attestation: I was immediately available in the department for consultation. ?This documentation has been reviewed and I agree with assessment and plan. Supervised by Raymond Catsanon MD
[2024-12-18] MEDS: HYDROCODONE/ACET 5/325 TABLET 1 TAB PO (12:37)
--- NOTE | 2024-12-18 13:35 | DI.CT.S_ITS ---
PROCEDURE: CT CHEST ABD PEL W CON INDICATIONS: fall TECHNIQUE: After the administration of intravenous contrast, 5 mm thick sections acquired from the lung apices to the symphysis. 2.5 mm thick coronal and sagittal reformats were acquired. Additional 7 mm thick coronal maximum intensity projection (MIP) reformats acquired through the lungs. Optional 10-minute delayed imaging may be performed from the kidneys to the bladder. For radiation dose reduction, the following was used: automated exposure control, adjustment of mA and/or kV according to patient size. COMPARISON: [facility], CR, XR RIBS LT MIN 3V W CXR1V, 12/18/2024, 11:58. FINDINGS: Image quality: Diagnostic. CHEST: Lower Neck: No enlarged lymph nodes. Thyroid: No thyroid nodules which require sonographic evaluation. Axillae: No enlarged lymph nodes. Chest Wall: No subcutaneous gas. Lungs and Pleura: No pulmonary contusions or lacerations. No acute airspace opacities. No pneumothorax or hemothorax. Mediastinum: No mediastinal hematomas. Heart size is enlarged. No pericardial effusion. Thoracic aorta and pulmonary arteries demonstrate normal size and enhancement. 2 vessel coronary artery atherosclerotic calcifications are seen. No mediastinal or hilar adenopathy. Esophagus is normal in caliber. Small hiatal hernia. ABDOMEN: Liver: No lacerations. Gallbladder: No radiopaque gallstones or wall thickening. Biliary ducts: No biliary dilation. Pancreas: Homogenous enhancement. Spleen: Homogenous enhancement without laceration or hematoma. Adrenal Glands: Symmetric enhancement. Kidneys and Ureters: Symmetric enhancement. No hydronephrosis. No solid mass. No complex renal cystic lesion which requires follow up. Stomach and Bowel: Normal colonic caliber, without significant wall thickening. Mild fecal stasis in the colon is seen. Peritoneum: No abnormal intraperitoneal fluid. No free air. Ventral Wall: No hernia. Abdominal Nodes: No retroperitoneal or mesenteric adenopathy by size criteria. Vessels: Aorta and inferior vena cava are normal in size. PELVIS: Pelvic Organs: Unremarkable. Bladder: Normal thickness. Pelvic Nodes: No enlarged lymph nodes. Miscellaneous: No inguinal hernias are seen. Bones: Pelvic ring and hip joints appear intact. No displaced rib fractures. No acute vertebral body compression fracture. Degenerative disc disease throughout thoracic and lumbar spine is seen. IMPRESSION: 1. No evidence of traumatic injury to the chest, abdomen or pelvis. 2. Incidental findings as described above. Dictated by: Giuseppe Rodriguez M.D. on 12/18/2024 at 16:05 Approved by: Giuseppe Rodriguez M.D. on 12/18/2024 at 16:12
[2024-12-18 13:42] LABS: Ictotest Urine Negative (Negative); Urine Volume 10mL (spun)
[2024-12-18 13:46] LABS: RBC Urine None Seen (0-5/HPF)
[2024-12-18 13:47] LABS: Bacteria Urine None Seen; Culture Indicated Urine Specimen Cultured; Squamous Epithelial Cell Urine 1-5 /HPF (0-5/HPF); WBC Urine 5-10/HPF (0-5/HPF)
[2024-12-18 14:02] LABS: Add Manual Diff / Slide Review NO; Basophils Absolute Auto 100 /uL (0-100); Basophils Percent Auto 1.4 % (0-2); Eosinophils Absolute Auto 300 /uL (0-450); Eosinophils Percent Auto 3.5 % (2-4); Hematocrit 40.8 % (36-46); Hemoglobin 13.4 g/dL (12.0-16.0); Lymphocytes Absolute Auto 1400 /uL (1100-4500); Mean Corpuscular HGB Conc 32.9 % (30-36); Mean Corpuscular Hemoglobin 30.3 PG (26-34); Monocytes Absolute Auto 400 /uL (0-900); Monocytes Percent Auto 5.2 % (3-14); Neutrophils Absolute Auto 5700 /uL (1500-7000); Neutrophils Percent Auto 71.9 % (50-75); Platelet Count 189 X10^3/uL (150-400); Red Blood Cell Count 4.44 X10^6/uL (4.0-5.2); Red Cell Distribution Width 14.6 % (11.6-14.8); White Blood Cell Count 7.9 X10^3/uL (4.5-11.0)
[2024-12-18 14:13] VITALS: BP 206/93; PULSE 58; RESP 16; O2SAT 97
[2024-12-18 14:13] LABS: Prothrombin Time 11.6 SECONDS (9.4-12.5)
[2024-12-18 14:16] LABS: PTT Partial Thromboplastin Tim 33 SECONDS (25.1-36.5)
[2024-12-18 14:18] LABS: Alanine Aminotransferase 26 IU/L (<35); Albumin 4.3 g/dL (3.5-5.0); Albumin Globulin Ratio 1.4 (1.0-2.8); Alkaline Phosphatase 108 U/L (38-126); Aspartate Aminotransferase 39 IU/L (14-36); BUN Creatinine Ratio 15.5 (6-22); Bilirubin Total 0.6 mg/dL (0.2-1.3); Blood Urea Nitrogen 9 mg/dL (7-17); Carbon Dioxide 32 mmol/L (22-32); Chloride 106 mmol/L (98-107); Estimated Glomerular Filt Rate > 60 mL/min (>60); Glucose 111 mg/dL (80-110); HEMOLYSIS < 15 (0-50); Lipase 301 U/L (23-300); Potassium 3.6 mmol/L (3.4-5.1); Sodium 142 mmol/L (137-145); Total Protein 7.3 g/dL (6.3-8.2)
[2024-12-18 16:58] VITALS: BP 198/97; PULSE 60; RESP 20; O2SAT 97
[2024-12-18] MEDS: LIDOCAINE 5% PATCH 1 EACH TOP (17:50)
--- NOTE | 2024-12-18 18:01 | CM.SWNOTE ---
ED TIRE INSTALLER Note Patient is 79 y/o female who presents to ED after GLF on blood thinners after slipping on icy porch. In ED patient was diagnosed with contusion of left flank, there is no evidence of injury or fracture. Patient's PCP is Dr. Schultz, patient has [employer] [facility] insurance. TIRE INSTALLER enters room to meet with patient, patient presents as A/Ox4, anxious about returning home. Patient's neighbor is present and quite supportive. Patient was able to ambulate in ED, patient presents with difficulty sitting to standing. Patient states she resides alone in [place], patient has a son that lives in [place] and a Sister in [place]. Patient states that her biggest support is her neighbor who is present as she lives across the street. patient endorses independence with ADLs at baseline, patient denies hx of DME. Patient endorses she receives meals on wheels. Patient's neighbor states that she can check in with patient regularly. TIRE INSTALLER discusses Home health and SNF rehab, patient denies wanting to make a decision regarding this. Patient presents with concern about returning home. TIRE INSTALLER discusses caregiver resources and DME. Patient is encouraged that there is no traumatic injury or fracture and there is no medical diagnosis requiring her to stay in the hospital. Patient was provided FWW in ED, patient's neighbor has plans to go to [employer] to poultry picker more DME and a raised toilet. Patient endorses she is comfortable with d/c to home with medications prescribed and to assess how she does in the next few days. TIRE INSTALLER offers to have PCP office f/u with patient, patient indicates agreement. Patient's neighbor to drive patient home upon d/c and poultry picker rx. TIRE INSTALLER contacts PCP office and requests phone call follow up to patient tomorrow. TIRE INSTALLER provides patient with private caregiver, lists of caregiver agencies and senior resource guide. Plan: patient to d/c to home upon medical clearance with neighbor, patient to f/u with rx provided, resources provided and PCP office to f/u with patient. Camelia Ortiz, TRAVEL FREIGHT AND PASSENGER AGENT
== END 2024-12-18 17:50 | disposition home or self-care (01) ==
PROVIDERS: Emergency Provider Physician Assistant; PCP Student in an Organized Health Care Education/Training Program
DX: S30.1XXA Contusion of abdominal wall, initial encounter (principal); M54.2 Cervicalgia; W00.2XXA Other fall from one level to another due to ice and snow, initial encounter; Z79.01 Long term (current) use of anticoagulants; R79.89 Other specified abnormal findings of blood chemistry
CPT/HCPCS: 36415; 71101; 71260; 74177; 80053; 81003; 81015; 83690; 85025; 85610; 85730; 87086; 99284; Q9967

== ENCOUNTER 2025-03-18 09:21 | Emergency (ER) | payer OTHER, SELFPAY ==
[2024-08-16 18:37] VITALS: BMI 38.9
[2025-03-18 09:46] VITALS: BP 182/87; PULSE 91; RESP 16; TEMP 36.7; O2SAT 95; BMI 34.7
--- NOTE | 2025-03-18 10:04 | ED.DENTAL ---
HPI - Dental/Oral General Chief complaint: Dental/Oral Stated complaint: LEFT SIDE DENTAL PAIN Time Seen by Provider: 03/18/25 09:56 Source: patient, RN notes reviewed and old records reviewed Mode of arrival: Ambulatory Limitations: no limitations History of Present Illness HPI Narrative: 79-year-old female history of hypertension, dyslipidemia, CAD with cardiac stents on Eliquis and Plavix. Patient notes she was had to teeth in the right upper region that are doing poorly she was supposed to go has a fixed including a crown and has since developed increasing pain redness and swelling over that area and extending down that she can up towards her eye. She states it is tender to touch feels very full and painful. She denies any fevers. Denies any swelling of the lips tongue or oropharynx. No changes to speech. No difficulty with secretions. No chest pain or shortness of breath. No nausea or vomiting. No other GI or urinary symptoms. Patient states no allergies to antibiotics other than erythromycin. She has an appointment with the dentist today to have both teeth extracted but was told to come be seen instead. Patient has been taking Tylenol but without any improvement. She also notes she did not take her morning medications including her antihypertensives. Related Data Home Medications Medication Instructions Recorded Confirmed multivitamin (Multiple Vitamins 1 tab PO QDAY ##0 04/26/17 12/20/24 tablet) Flaxseed Oil 1,000 mg PO DAILY 12/25/18 12/20/24 LACTAID 1 cap PO ONCE PRN Lactose 12/25/18 12/20/24 Intolerance apixaban 5 mg tablet 5 mg PO BID 07/13/22 12/20/24 clopidogrel 75 mg tablet 75 mg PO DAILY 07/13/22 12/20/24 metoprolol succinate 25 mg 25 mg PO DAILY 07/13/22 12/20/24 tablet,extended release 24 hr rosuvastatin 20 mg tablet 30 mg PO DAILY 08/19/24 12/20/24 sennosides 8.6 mg tablet (Natural 8.6 mg PO DAILY 08/19/24 12/20/24 Vegetable Laxative (sennosides)) Previous Rx's Medication Instructions Recorded sertraline 50 mg tablet 50 mg PO DAILY #90 tabs 10/07/24 hydrocodone 5 mg-acetaminophen 325 1 tab PO Q6H PRN pain (scale score 01/22/25 mg tablet 7-10) #10 tabs lidocaine 5 % topical patch 1 patch topical DAILY #30 ea 12/18/24 (Lidoderm) cyclobenzaprine 5 mg tablet 5 mg PO TID PRN muscle spasm #60 12/20/24 tabs losartan 25 mg tablet 50 mg (2 x 25 mg) PO DAILY #60 tabs 12/20/24 amoxicillin 875 mg-potassium 1 tab PO BID #20 tabs 03/18/25 clavulanate 125 mg tablet hydrocodone 5 mg-acetaminophen 325 1 tab PO Q6H PRN pain #10 tabs 03/18/25 mg tablet Allergies Allergy/AdvReac Type Severity Reaction Status Date / Time erythromycin base Allergy Intermediate Vomiting Verified 03/18/25 09:46 [ERYTHROMYCIN BASE] meperidine [MEPERIDINE] Allergy Mild Light Verified 03/18/25 09:46 headed lactose AdvReac Mild GAS, Verified 03/18/25 09:46 BLOATING AND GI UPSET RAISED BREADS AdvReac Mild Tightening Uncoded 03/18/25 09:46 in my lungs, wheezing and shortness of breath Review of Systems Review of Systems ROS Unobtainable: All systems reviewed & are unremarkable except as noted in HPI and below Patient History Medical History CAD (coronary artery disease) Carpal tunnel syndrome (05/02/08) Anxiety about health Breast cancer Irritable bowel (Unknown) Arm fracture, right (12/2007) Herpes (Unknown) Carpal tunnel syndrome (04/2008) Osteopenia (Unknown) Depression (Unknown) Hypertension (Unknown) Hyperlipemia (Unknown) Alopecia (Unknown) Rosacea (Unknown) Hypoglycemia (Unknown) Surgical History Hx of breast biopsy History of removal of ovarian cyst (1970) History of tonsillectomy Family History Brother Mouth cancer Cancer Heart disease Father Stroke Diabetes mellitus Gallstones Mother Hypertension Heart disease Social History household members: none Smoking Status: Never smoker second hand exposure: No alcohol intake: former substance use type: does not use Smoking Status: Never smoker Exam Narrative Exam Narrative: GEN: well nourished, well appearing., alert and oriented x 3, patient appears to be in my distress. HEENT: Atraumatic, pupils are equal round reactive to light, extraocular movements are intact, nares are clear, TMs are clear with no fluid, there is no conjunctival pallor. Throat is clear without any exudates, erythema, tonsillar enlargement or uvular deviation, patient was swelling, erythema and induration at the left cheek just lateral to the nasal crease, erythema extends down towards the lower cheek and does cause a little bit of swelling and her lip to down turn. No intraoral swelling appreciated. She does have poor dentition throughout. No abscess appreciated on palpation externally or internally. There was no swelling of the tongue, airway. Patient has a normal voice, no difficulty with secretions. HEART: Regular rate and rhythm without murmur, clicks, rubs. ABD:bowel sounds normal, soft, non-tender, no guarding, rebound, rigidity, no masses noted, no hepatosplenomegaly MSCL: full range of motion, normal gait, patient is able to ambulate to the bathroom and back without assistance during her evaluation NEURO:CN 2-12 intact, sensation normal Initial Vital Signs Initial Vital Signs: Vital Signs Temperature 98.1 F 03/18/25 09:46 Pulse Rate 91 H 03/18/25 09:46 Respiratory Rate 16 03/18/25 09:46 Blood Pressure 182/87 H 03/18/25 09:46 Pulse Oximetry 95 03/18/25 09:46 Oxygen Delivery Method Room Air 03/18/25 09:46 Course Orders Ordered: Discontinued Medications Hydrocodone Bitart/Acetaminophen (Hydrocodone/Acet 5/325 Tablet) 1 tab PO NOW ONE Stop: 03/18/25 11:07 Last Admin: 03/18/25 11:11 Dose: 1 tab Documented By: TRI Amoxicillin/Clavulanate Potassium (Amoxicillin/Clav 875/125 Mg) 1 tab PO NOW ONE Stop: 03/18/25 10:46 Last Admin: 03/18/25 11:06 Dose: 1 tab Documented By: LASHELL Vital Signs Vital signs: Vital Signs - 8 hr 03/18/25 11:32 Pulse Rate 76 Respiratory Rate 16 Blood Pressure 215/96 H Pulse Oximetry 97 Oxygen Delivery Method Room Air MDM - Dental/Oral MDM Narrative Medical decision making narrative: 79-year-old female with known crown and 2nd tooth that are supposed to be extracted in her right upper jaw patient's develop redness warmth and erythema with induration over the past 2 days which has been worsening. Describes has been quite uncomfortable. Supposed to go with the dentist today to have her teeth extracted but was directed here. She was afebrile nontoxic. Bedside ultrasound was performed no fluid collections or drainable abscess was appreciated. We will start patient on oral antibiotic give her a short course of pain medication. She notes she was had hydrocodone in the past and tolerated it. Discussed return precautions low threshold to return if rapidly worsening or fevers. Discharge Plan Departure Patient Disposition: Home Clinical Impression: Cellulitis of face, Dental infection Instructions: DI for Cellulitis -- Adult Activity Restrictions/Additional Instructions: Call to set up follow up with your dentist. You appear to have developed a cellulitis overlying but I do not see any signs of abscess on your bedside ultrasound. Use warm compresses to the affected area for 10 minutes 3-4 times daily. Take oral antibiotics until completed. You can take acetaminophen up to a 1000 mg every 6 hours as needed for pain. If inadequate for pain you can take [place] 1 tablet every 6 hours as needed. This medication can make you sleepy do not drive, perform hazardous activities or make any major decisions while taking it. This medication will make you constipated please take a stool softener once to twice daily until stools are soft and regular. Prescription sent to [facility] in [place]. Please return for fevers, increasing redness or swelling rapidly worsening pain, any difficulty with swallowing, swelling of your tongue airway, changes to voice, if you are having any difficulty opening or closing your jaw or other new or concerning changes. Prescriptions: New amoxicillin-pot clavulanate 875-125 mg tablet 1 tab PO BID Qty: 20 0RF hydrocodone-acetaminophen 5-325 mg tablet 1 tab PO Q6H PRN (Reason: pain) Qty: 10 0RF No Action LACTAID 1 cap PO ONCE PRN (Reason: Lactose Intolerance) Flaxseed Oil 1,000 mg PO DAILY cyclobenzaprine 5 mg tablet 5 mg PO TID PRN (Reason: muscle spasm) Qty: 60 0RF losartan 25 mg tablet 50 mg PO DAILY Qty: 60 3RF sennosides [Natural Veg Laxative(sennosid)] 8.6 mg tablet 8.6 mg PO DAILY multivitamin [Multiple Vitamins] 1 EACH tablet 1 tab PO QDAY Qty: 0 metoprolol succinate 25 mg tablet extended release 24 hr 25 mg PO DAILY clopidogrel 75 mg tablet 75 mg PO DAILY apixaban 5 mg tablet 5 mg PO BID sertraline 50 mg tablet 50 mg PO DAILY Qty: 90 3RF rosuvastatin 20 mg tablet 30 mg PO DAILY Patient Comments: TAKE 1 TABLET BY MOUTH ONCE DAILY lidocaine [Lidoderm] 5 % adhesive patch,medicated 1 patch topical DAILY Qty: 30 0RF Rx Instructions: leave on most painful area for up to 12 hrs hydrocodone-acetaminophen 5-325 mg tablet 1 tab PO Q6H PRN (Reason: pain (scale score 7-10)) Qty: 10 0RF Referrals: Graciela Schultz MD [Primary Care Provider] - Stand Alone Forms: Patient Portal/API/Survey
[2025-03-18] MEDS: AMOXICILLIN/CLAV 875/125 MG 1 TAB PO (11:06)
[2025-03-18] MEDS: HYDROCODONE/ACET 5/325 TABLET 1 TAB PO (11:11)
[2025-03-18 11:32] VITALS: BP 215/96; PULSE 76; RESP 16; O2SAT 97
== END 2025-03-18 11:36 | disposition home or self-care (01) ==
PROVIDERS: Emergency Provider Emergency Medicine; PCP Student in an Organized Health Care Education/Training Program
DX: L03.211 Cellulitis of face (principal); K04.7 Periapical abscess without sinus
CPT/HCPCS: 99283

== ENCOUNTER → 2025-04-22 15:46 | Outpatient (CLI) | payer OTHER, SELFPAY ==
[2024-08-16 18:37] VITALS: BMI 38.9
--- NOTE | 2025-04-22 15:48 | DI.ECHO.S_ITS ---
[facility]+ [facility] : : [id number] : [address] : : [id number] : : Phone: [phone] Echocardiogram Report + + :Name: TAMEKA MCCAIN Study Date: 04/22/2025 Height: 62 in : :[facility] ReadingLocation: Weight: 206 lb : : Gender: Female BSA: 1.9 m2 : :: 1945 Age: 79 yrs BP: 174/80 mmHg: :Reason For Study: ENLARGED HEART : :Ordering Physician: ANIVAL, : :JEREMÍAS Performed By: Conrad Stout : :Referring: JEREMÍAS FLORIAN : + + Interpretation Summary Based on LV volume, LV size appears to be normal. Mild concentric LVH. The left ventricle is hyperdynamic. The ejection fraction is estimated to be 70-75%. MV E/A: 0.96 Med Peak E' Ranjan: 4.8 cm/sec E/E' med: 20.6 Previous LVEF 60 to 65% The right ventricle is normal in size and function. There is mild mitral regurgitation. Compared to the prior echo study, there has been no change in the severity of mitral regurgitation. There is mild aortic regurgitation. Compared to the prior echo study, there has been no change in the severity of aortic regurgitation. There is aortic root sclerosis/calcification. The IVC is of normal diameter and collapses greater than 50% with a sniff. This suggests a low right atrial pressure of 3 mm Hg. BP: 174/80 mmHg Procedure: A two-dimensional transthoracic echocardiogram with color flow and Doppler was performed. The study quality was technically good. Comparison is made with the echocardiogram of 12/26/2023. The patient was in normal sinus rhythm during the exam. Left Ventricle: Left ventricular wall thickness is mildly increased. Based on LV volume, LV size appears to be normal. Mild concentric LVH. There is no echo evidence for significant left ventricular outflow tract obstruction. There is no ventricular septal defect visualized. The ejection fraction is estimated to be 70-75%. The left ventricle is hyperdynamic. There are no focal wall motion abnormalities. MV E/A: 0.96 Med Peak E' Ranjan: 4.8 cm/sec E/E' med: 20.6. Diastolic parameters suggest probable elevated filling pressures. Right Ventricle: The right ventricle is normal in size and function. Atria: The left atrium is moderately dilated. The left atrium has mildly increased in size since the prior echo exam. The right atrium is mildly dilated. There is no Doppler evidence for an atrial septal defect. Mitral Valve: There is mild to moderate mitral annular calcification. The mitral valve leaflets appear mildly thickened, but open well. There is mild mitral regurgitation. Compared to the prior echo study, there has been no change in the severity of mitral regurgitation. Aortic Valve: The aortic valve is trileaflet. The aortic valve opens well. The aortic valve is mildly calcified. There is no aortic valve stenosis. There is mild aortic regurgitation. Compared to the prior echo study, there has been no change in the severity of aortic regurgitation. Tricuspid Valve: The tricuspid valve leaflets are thin and pliable. There is trace tricuspid regurgitation. The right ventricular systolic pressure is estimated to be at least 33 mmHg based on an estimated right atrial pressure of 3 mm Hg. Pulmonic Valve: The pulmonic valve is not well visualized. There is no pulmonic valvular regurgitation. Great Vessels: The aortic root is normal size. There is aortic root sclerosis/calcification. The dimensions of the ascending aorta are normal. The pulmonary artery is normal size. The IVC is of normal diameter and collapses greater than 50% with a sniff. This suggests a low right atrial pressure of 3 mm Hg. Pericardium/ Pleura There is no pericardial effusion. There is no pleural effusion. MMode/2D Measurements & Calculations LVIDd: 6.0 cm LVOT diam: 1.9 cm LVIDs: 4.3 cm Ao root diam: 2.7 cm FS: 27.7 % asc Aorta Diam: 3.4 cm EPSS: 0.63 cm Ao Arch Diam (Prox Trans): 1.4 cm IVSd: 1.2 cm LVPWd: 1.3 cm LV gee. diameter/BSA (cm/m^2): 3.1 LV sys. diameter/BSA (cm/m^2): 2.2 LA A2 area: 21.2 cm2 RA long axis: 5.2 cm LA A4 area: 27.3 cm2 RA area: 18.3 cm2 LA length (vol): 6.6 cm RA vol: 54.7 ml LA vol: 74.4 ml RA : 28.3 ml/m2 LA vol index: 38.5 ml/m2 IVC diam: 1.9 cm RVD1 (basal): 3.5 cm RVD2 (mid): 3.1 cm TAPSE: 2.7 cm Doppler Measurements & Calculations Ao V2 max: 198.3 cm/sec LVOT Max Ranjan: 118.6 cm/sec Ao V2 mean: 142.1 cm/sec LV V1 max P.6 mmHg Ao max P.7 mmHg LV V1 VTI: 31.4 cm Ao mean P.1 mmHg ATUL(I,D): 1.9 cm2 Ao V2 VTI: 48.1 cm ATUL(V,D): 1.7 cm2 sev ratio: 0.65 ATUL indexed to BSA (cm^2/m^2): 0.98 MV E max ranjan: 99.2 cm/sec TR max ranjan: 275.8 cm/sec MV A max ranjan: 102.9 cm/sec TR max P.4 mmHg MV E/A: 0.96 PA V2 max: 120.6 cm/sec Med Peak E' Ranjan: 4.8 cm/sec PA V2 mean: 87.1 cm/sec E/E' med: 20.6 PA mean P.2 mmHg Lat Peak E' Ranjan: 6.1 cm/sec PA pr(Accel): 37.9 mmHg E/E' lat: 16.4 E/e' average: 18.5 MV dec time: 0.25 sec SV(LVOT): 91.6 ml Reading Physician:05:35 PM
== END ==
PROVIDERS: PCP Student in an Organized Health Care Education/Training Program; Referring Provider Internal Medicine Cardiovascular Disease; Visit Provider Internal Medicine Cardiovascular Disease
DX: I51.7 Cardiomegaly (principal); I34.0 Nonrheumatic mitral (valve) insufficiency; I35.1 Nonrheumatic aortic (valve) insufficiency; I70.0 Atherosclerosis of aorta
CPT/HCPCS: 93306

== ENCOUNTER 2025-04-22 16:57 | Emergency (ER) | payer OTHER, SELFPAY ==
[2024-08-16 18:37] VITALS: BMI 38.9
[2025-04-22 17:08] VITALS: BP 165/72; PULSE 70; RESP 18; TEMP 36.8; O2SAT 97; BMI 37.6
[2025-04-22 18:54] VITALS: O2SAT 93
[2025-04-22 18:55] VITALS: BP 185/75; PULSE 61; O2SAT 94
[2025-04-22 19:00] VITALS: BP 163/74; PULSE 67; RESP 18; O2SAT 96
--- NOTE | 2025-04-22 19:20 | ED.GENADULT ---
HPI - General Adult General Chief complaint: Hypertension Stated complaint: high BP, pcp ref Time Seen by Provider: 04/22/25 19:20 Source: patient Mode of arrival: Wheelchair History of Present Illness HPI narrative: 79-year-old female with a past medical history of hypertension, hyperlipidemia, presents to the emergency department from home for evaluation of high blood pressure, patient states that she was getting an echo done today had elevated blood pressure of 201/93 therefore was sent here, she states that she has no other symptoms, at time of initial evaluation here patient is blood pressure 165/72. Not complaining of any headache visual disturbances chest pain shortness breath fever chills nausea abdominal pain or any other GI/ symptoms. She states that she does normally take antihypertensives, and losartan at noon, metoprolol at night, states that she did take her losartan normally today. Related Data Home Medications Medication Instructions Recorded Confirmed multivitamin (Multiple Vitamins 1 tab PO QDAY ##0 04/26/17 12/20/24 tablet) Flaxseed Oil 1,000 mg PO DAILY 12/25/18 12/20/24 LACTAID 1 cap PO ONCE PRN Lactose 12/25/18 12/20/24 Intolerance apixaban 5 mg tablet 5 mg PO BID 07/13/22 12/20/24 clopidogrel 75 mg tablet 75 mg PO DAILY 07/13/22 12/20/24 metoprolol succinate 25 mg 25 mg PO DAILY 07/13/22 12/20/24 tablet,extended release 24 hr rosuvastatin 20 mg tablet 30 mg PO DAILY 08/19/24 12/20/24 sennosides 8.6 mg tablet (Natural 8.6 mg PO DAILY 08/19/24 12/20/24 Vegetable Laxative (sennosides)) Previous Rx's Medication Instructions Recorded sertraline 50 mg tablet 50 mg PO DAILY #90 tabs 10/07/24 hydrocodone 5 mg-acetaminophen 325 1 tab PO Q6H PRN pain (scale score 12/18/24 mg tablet 7-10) #10 tabs lidocaine 5 % topical patch 1 patch topical DAILY #30 ea 12/18/24 (Lidoderm) cyclobenzaprine 5 mg tablet 5 mg PO TID PRN muscle spasm #60 12/20/24 tabs losartan 25 mg tablet 50 mg (2 x 25 mg) PO DAILY #60 tabs 12/20/24 amoxicillin 875 mg-potassium 1 tab PO BID #20 tabs 03/18/25 clavulanate 125 mg tablet hydrocodone 5 mg-acetaminophen 325 1 tab PO Q6H PRN pain #10 tabs 03/18/25 mg tablet Allergies Allergy/AdvReac Type Severity Reaction Status Date / Time erythromycin base Allergy Intermediate Vomiting Verified 03/18/25 09:46 [ERYTHROMYCIN BASE] meperidine [MEPERIDINE] Allergy Mild Light Verified 03/18/25 09:46 headed lactose AdvReac Mild GAS, Verified 03/18/25 09:46 BLOATING AND GI UPSET RAISED BREADS AdvReac Mild Tightening Uncoded 03/18/25 09:46 in my lungs, wheezing and shortness of breath Review of Systems Review of Systems Narrative: General: Denies fever, chills, weight loss HEENT: Denies headache, eye drainage, eye irritation, head trauma, sore throat, voice change Cardiovascular: Positive hypertension, Denies any chest pain, palpitations, tachycardia Respiratory: Denies any shortness of breath, cough, wheeze, stridor GI/: Denies any abdominal pain, nausea, vomiting, diarrhea, bright red blood per rectum, melanotic stools, urinary frequency, urinary retention, dysuria, hematuria MSK: Denies any joint pain, muscle pains, swelling Skin: Denies any rashes, lesions, discoloration Neuro: Denies any headache, lightheadedness, dizziness, fainting, weakness Psych: Denies SI/HI Patient History Medical History CAD (coronary artery disease) Carpal tunnel syndrome (05/02/08) Anxiety about health Breast cancer Irritable bowel (Unknown) Arm fracture, right (12/2007) Herpes (Unknown) Carpal tunnel syndrome (04/2008) Osteopenia (Unknown) Depression (Unknown) Hypertension (Unknown) Hyperlipemia (Unknown) Alopecia (Unknown) Rosacea (Unknown) Hypoglycemia (Unknown) Surgical History Hx of breast biopsy History of removal of ovarian cyst (1970) History of tonsillectomy Family History Brother Mouth cancer Cancer Heart disease Father Stroke Diabetes mellitus Gallstones Mother Hypertension Heart disease Social History household members: none Smoking Status: Never smoker second hand exposure: No alcohol intake: former substance use type: does not use Smoking Status: Never smoker Exam Narrative Exam Narrative: General: Cooperative, well-developed, not in acute distress HEENT: Normocephalic, atraumatic, PERRLA, normal sclera, eyelids normal Neck: Active full range of motion, atraumatic Chest: Normal to inspection, negative crepitus, no overlying erythema ecchymosis Respiratory: Normal respiratory effort, not in acute respiratory distress, clear to auscultation bilaterally negative cough, wheeze, tachypnea, rhonchi, rales Cardiology: Regular rate rhythm negative gallop, murmur, rubs GI/: No tenderness to palpation, soft, non rigid, normal to inspection, exam deferred MSK: Full active range of motion in all 4 extremities, atraumatic, no tenderness to palpation of any bony prominences Skin: No rashes or lesions noted Neuro: NIH of 0, no focal deficits Alert awake oriented x3, moves all 4 extremities spontaneously, cranial nerves intact, able to answer all questions appropriately follows commands appropriately Psych: Cooperative, negative suicidal or homicidal ideations Initial Vital Signs Initial Vital Signs: Vital Signs Temperature 98.3 F 04/22/25 17:08 Pulse Rate 70 04/22/25 17:08 Respiratory Rate 18 04/22/25 17:08 Blood Pressure 165/72 H 04/22/25 17:08 Pulse Oximetry 97 04/22/25 17:08 Oxygen Delivery Method Room Air 04/22/25 17:08 Course Vital Signs Vital signs: Vital Signs - 8 hr 04/22/25 17:08 Temperature 98.3 F Pulse Rate 70 Respiratory Rate 18 Blood Pressure 165/72 H Pulse Oximetry 97 Oxygen Delivery Method Room Air Medical Decision Making Differential Diagnosis Differential Diagnosis: Asymptomatic hypertension MDM Narrative Medical decision making narrative: 79-year-old female with past medical history of hypertension hyperlipidemia presenting to the emergency department for high blood pressure, states that she was getting an echo when her blood pressure was hives and was sent in here, at time of evaluation patient NIH of 0 no focal deficits not having any headache visual disturbances chest pain, patient is normotensive without any intervention, patient not requiring any interventions at this time strict return precautions given she verbalized understanding of this and agrees to being discharged home with outpatient follow up. Discharge Plan Departure Patient Disposition: Home Clinical Impression: Asymptomatic hypertension Activity Restrictions/Additional Instructions: Please follow up with your primary care doctor Please read the discharge instructions sheet carefully and bring all papers to all doctor follow-up visits, as it may contain information that your doctor may want to see. Disease processes change and evolve, if your symptoms worsen or if you develop any new symptoms that are concerning to you please return for evaluation. Your evaluation today does not show any evidence of any life-threatening/serious illnesses requiring admission to the hospital or surgery. Please follow-up with your doctor for re-evaluation in approximately 1 day. Seek immediate medical attention for any worrisome symptoms. *If you do not have a primary care provider please contact the [facility] Resource line at [phone]. They will ask some questions about your medical history and help get you set up with a doctor in the community. Prescriptions: No Action LACTAID 1 cap PO ONCE PRN (Reason: Lactose Intolerance) Flaxseed Oil 1,000 mg PO DAILY cyclobenzaprine 5 mg tablet 5 mg PO TID PRN (Reason: muscle spasm) Qty: 60 0RF losartan 25 mg tablet 50 mg PO DAILY Qty: 60 3RF sennosides [Natural Veg Laxative(sennosid)] 8.6 mg tablet 8.6 mg PO DAILY multivitamin [Multiple Vitamins] 1 EACH tablet 1 tab PO QDAY Qty: 0 metoprolol succinate 25 mg tablet extended release 24 hr 25 mg PO DAILY clopidogrel 75 mg tablet 75 mg PO DAILY apixaban 5 mg tablet 5 mg PO BID sertraline 50 mg tablet 50 mg PO DAILY Qty: 90 3RF rosuvastatin 20 mg tablet 30 mg PO DAILY Patient Comments: TAKE 1 TABLET BY MOUTH ONCE DAILY lidocaine [Lidoderm] 5 % adhesive patch,medicated 1 patch topical DAILY Qty: 30 0RF Rx Instructions: leave on most painful area for up to 12 hrs hydrocodone-acetaminophen 5-325 mg tablet 1 tab PO Q6H PRN (Reason: pain (scale score 7-10)) Qty: 10 0RF amoxicillin-pot clavulanate 875-125 mg tablet 1 tab PO BID Qty: 20 0RF hydrocodone-acetaminophen 5-325 mg tablet 1 tab PO Q6H PRN (Reason: pain) Qty: 10 0RF Referrals: Graciela Schultz MD [Primary Care Provider] - Stand Alone Forms: Patient Portal/API/Survey
[2025-04-22 19:30] VITALS: PULSE 62; O2SAT 97
[2025-04-22 19:31] VITALS: BP 184/75; PULSE 62; O2SAT 96
== END 2025-04-22 19:49 | disposition home or self-care (01) ==
PROVIDERS: Emergency Provider Student in an Organized Health Care Education/Training Program; PCP Student in an Organized Health Care Education/Training Program
DX: I10 Essential (primary) hypertension (principal); I51.7 Cardiomegaly; I34.0 Nonrheumatic mitral (valve) insufficiency; I35.1 Nonrheumatic aortic (valve) insufficiency; I70.0 Atherosclerosis of aorta
CPT/HCPCS: 93306; 99281; 99283

== ENCOUNTER → 2025-04-29 14:30 | Outpatient (CLI) | payer OTHER, SELFPAY ==
[2024-08-16 18:37] VITALS: BMI 38.9
--- NOTE | 2025-04-29 14:32 | DI.US.S_ITS ---
PROCEDURE: US ARTERIAL DUPLEX LE BI INDICATIONS: LEG PAIN BILATERALLY TECHNIQUE: Color and pulse Doppler interrogation was performed of both lower extremity arterial systems, with image documentation. COMPARISON: None. FINDINGS: Right lower extremity: Common femoral artery: 191 cm/sec, with triphasic flow. Deep femoral artery: 123 cm/sec, with triphasic flow. Proximal superficial femoral artery: 107 cm/sec, with triphasic flow. Mid superficial femoral artery: 116 cm/sec, with triphasic flow. Distal superficial femoral artery: 177 cm/sec, with triphasic flow. Popliteal artery: 85 cm/sec, with triphasic flow. Posterior tibial artery: 122 cm/sec, with triphasic flow. Anterior tibial artery/dorsalis pedis: 52 cm/sec, with biphasic flow. Quintero-scale imaging description: Mild plaque. Normal waveforms throughout. Left lower extremity: Common femoral artery: 207 cm/sec, with triphasic flow. Deep femoral artery: 105 cm/sec, with triphasic flow. Proximal superficial femoral artery: 137 cm/sec, with triphasic flow. Mid superficial femoral artery: 104 cm/sec, with triphasic flow. Distal superficial femoral artery: 129 cm/sec, with triphasic flow. Popliteal artery: 60 cm/sec, with triphasic flow. Posterior tibial artery: 76 cm/sec, with triphasic flow. Anterior tibial artery/dorsalis pedis: 136 cm/sec, with biphasic flow. Quintero-scale imaging description: Mild plaque. No stenosis. Normal waveforms throughout. IMPRESSION: Widely patent bilateral lower extremity arterial vasculature with normal waveforms. Dictated by: Zack Servin M.D. on 04/30/2025 at 10:20 Approved by: Zack Servin M.D. on 04/30/2025 at 10:22
== END ==
LOC: US 14:31
PROVIDERS: PCP Student in an Organized Health Care Education/Training Program; Referring Provider Internal Medicine Cardiovascular Disease; Visit Provider Internal Medicine Cardiovascular Disease
DX: M79.604 Pain in right leg (principal); M79.605 Pain in left leg
CPT/HCPCS: 93925

== ENCOUNTER → 2025-05-05 12:42 | Outpatient (CLI) | payer OTHER, SELFPAY ==
[2024-08-16 18:37] VITALS: BMI 38.9
[2025-05-05 14:54] LABS: Blood Urea Nitrogen 12 mg/dL (7-17); Calcium 9.4 mg/dL (8.4-10.2); Carbon Dioxide 27 mmol/L (22-32); Chloride 105 mmol/L (98-107); Cholesterol 139 mg/dL (140-199); Estimated Glomerular Filt Rate > 60 mL/min (>60); Glucose 121 mg/dL (70-99); HDL Cholesterol 38 mg/dL (40-60); HEMOLYSIS < 15 (0-50); LDL Cholesterol Calculated 75 mg/dL (<100); Potassium 4.5 mmol/L (3.4-5.1); Sodium 140 mmol/L (137-145); Triglycerides 130 mg/dL (35-150)
== END ==
LOC: LAB 12:43
PROVIDERS: PCP Student in an Organized Health Care Education/Training Program; Referring Provider Nurse Practitioner Acute Care; Visit Provider Nurse Practitioner Acute Care
DX: E78.5 Hyperlipidemia, unspecified (principal); I10 Essential (primary) hypertension
CPT/HCPCS: 36415; 80048; 80061

== ENCOUNTER 2025-07-31 14:26 | Observation (INO) | payer OTHER, SELFPAY ==
[2024-08-16 18:37] VITALS: BMI 38.9
[2025-07-31 14:29] VITALS: BP 95/61; PULSE 69; RESP 16; O2SAT 97; BMI 37.5
--- NOTE | 2025-07-31 14:34 | DI.RAD.S_ITS ---
PROCEDURE: XR CHEST 1V INDICATIONS: Chest Pain TECHNIQUE: One view of the chest was acquired. COMPARISON: [facility], CR, XR CHEST 1V, 12/25/2023, 15:09. FINDINGS: Surgical changes and devices: None. Lungs and pleura: Lungs are clear. No pleural effusions or pneumothorax. Mediastinum: Mediastinal contours appear normal. Heart size is normal. Bones and chest wall: No suspicious bony lesions. Overlying soft tissues appear unremarkable. IMPRESSION: No acute cardiopulmonary abnormality is seen. Dictated by: Amrit Gonzalez M.D. on 07/31/2025 at 15:09 Approved by: Amrit Gonzalez M.D. on 07/31/2025 at 15:09
--- NOTE | 2025-07-31 14:34 | EKG_ITS ---
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
[2025-07-31 14:54] LABS: Add Manual Diff / Slide Review NO; Hematocrit 37.4 % (36-46); Hemoglobin 12.6 g/dL (12.0-16.0); Lymphocytes Absolute Auto 1300 /uL (1100-4500); Mean Corpuscular HGB Conc 33.8 % (30-36); Mean Corpuscular Hemoglobin 30.8 PG (26-34); Mean Corpuscular Volume 91.2 fL (80-100); Platelet Count 184 X10^3/uL (150-400)
[2025-07-31 14:56] LABS: INR 1.4 (0.9-1.3); Prothrombin Time 15.3 SECONDS (9.4-12.5)
[2025-07-31 14:59] LABS: Alanine Aminotransferase 19 IU/L (<35); Albumin 4.2 g/dL (3.5-5.0); Albumin Globulin Ratio 1.4 (1.0-2.8); Alkaline Phosphatase 78 U/L (38-126); Blood Urea Nitrogen 12 mg/dL (7-17); Calcium 9.3 mg/dL (8.4-10.2); Carbon Dioxide 25 mmol/L (22-32); Chloride 105 mmol/L (98-107); Creatine Kinase 116 U/L (30-135); Estimated Glomerular Filt Rate > 60 mL/min (>60); Globulin 2.9 g/dL (1.7-4.1); Glucose 107 mg/dL (70-99); HEMOLYSIS < 15 (0-50); Lipase 70 U/L (23-300); Magnesium 1.8 mg/dL (1.6-2.3); PTT Partial Thromboplastin Tim 31 SECONDS (25.1-36.5); Potassium 4.2 mmol/L (3.4-5.1); Sodium 140 mmol/L (137-145); Total Protein 7.1 g/dL (6.3-8.2)
[2025-07-31 15:12] LABS: NT-proBNP (BNP-Adult 18+) 272 pg/mL (<450); Troponin I < 0.012 ng/mL (0.01-0.034)
--- NOTE | 2025-07-31 15:56 | EKG_ITS ---
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
[2025-07-31 17:13] LABS: Troponin I < 0.012 ng/mL (0.01-0.034)
--- NOTE | 2025-07-31 18:18 | PC.NURSE ---
Patient taking home medications clopidigrel and metoprolol.
--- NOTE | 2025-07-31 18:34 | ED.CHESTPAIN ---
HPI - Chest Pain General Chief Complaint: Chest Pain Stated Complaint: sent from [facility] for cardiac workup Time Seen by Provider: 07/31/25 18:33 Source: patient, RN notes reviewed and old records reviewed Mode of arrival: Ambulatory Limitations: no limitations Limitations: no limitations History of Present Illness HPI narrative: 79-year-old female history of NSTEMI with cardiac stent in her LAD, breast cancer with prior mastectomy, hypertension, dyslipidemia patient is on Eliquis as well as Plavix daily. Patient presents with a complaint of left-sided chest pressure that does not radiate mostly with the exertion but sometimes at rest. She states she has also had shortness of breath for the past month with some swelling of her ankles which is new. She states better over the weekend when she had your he is her salt and junk food intake. She has not had no fevers or chills no cold cough or congestion. She notes she tends to sit upright to sleep normally but has not had any increased orthopnea. No nausea or vomiting. She notes some mild sweatiness with her symptoms. She states this does not feel the same as when she had her heart attack and has a stent for LAD. She notes some constipation but had a bowel movement this morning. No urinary symptoms. She notes her belly has been a little bit more distended but she has been stooling. Patient states she is on Eliquis as well as Plavix daily, losartan, sertraline, laxative and rosuvastatin. She has had mastectomy, cardiac stent and ovarian cyst and appendectomy. No known drug allergies but has a multiple food sensitivities. No tobacco, no alcohol no recreational drugs. Dr. 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 She reached out to his office on Monday was told to go to the ER but elected to come tonight. Patient notes that they have had discussions about nuc med stress test. Related Data Home Medications ?Medication ?Instructions ?Recorded ?Confirmed LACTAID 1 cap PO ONCE PRN Lactose 12/25/18 07/31/25 Intolerance apixaban 5 mg tablet 5 mg PO BID 07/13/22 07/31/25 clopidogrel 75 mg tablet 75 mg PO DAILY 07/13/22 07/31/25 metoprolol succinate 25 mg 25 mg PO DAILY 07/13/22 07/31/25 tablet,extended release 24 hr rosuvastatin 20 mg tablet 30 mg PO DAILY 08/19/24 07/31/25 sennosides 8.6 mg tablet (Natural 8.6 mg PO DAILY 08/19/24 07/31/25 Vegetable Laxative (sennosides)) losartan 25 mg tablet 50 mg PO BID 07/31/25 07/31/25 Previous Rx's ?Medication ?Instructions ?Recorded sertraline 50 mg tablet 50 mg PO DAILY #90 tabs 10/07/24 Allergies Allergy/AdvReac Type Severity Reaction Status Date / Time erythromycin base Allergy Intermediate Vomiting Verified 03/18/25 09:46 (ERYTHROMYCIN BASE) meperidine (MEPERIDINE) Allergy Mild Light Verified 03/18/25 09:46 headed lactose AdvReac Mild GAS, Verified 03/18/25 09:46 BLOATING AND GI UPSET RAISED BREADS AdvReac Mild Tightening Uncoded 03/18/25 09:46 in my lungs, wheezing and shortness of breath Review of Systems Review of Systems ROS Unobtainable: All systems reviewed & are unremarkable except as noted in HPI and below Patient History Medical History CAD (coronary artery disease) Carpal tunnel syndrome (05/02/08) Anxiety about health Breast cancer Irritable bowel (Unknown) Arm fracture, right (12/2007) Herpes (Unknown) Carpal tunnel syndrome (04/2008) Osteopenia (Unknown) Depression (Unknown) Hypertension (Unknown) Hyperlipemia (Unknown) Alopecia (Unknown) Rosacea (Unknown) Hypoglycemia (Unknown) Surgical History Hx of breast biopsy History of removal of ovarian cyst (1970) History of tonsillectomy Family History Brother Mouth cancer Cancer Heart disease Father Stroke Diabetes mellitus Gallstones Mother Hypertension Heart disease Social History household members: none Smoking Status: Never smoker second hand exposure: No alcohol intake: former substance use type: does not use Exam Narrative Exam Narrative: GENERAL: Alert and oriented x three, female in mild distress HEENT: Head normocephalic, atraumatic, EOMI, pupils reactive, face symmetric, moist mucous membranes NECK: Supple, full range of motion CARDIOVASCULAR: Regular rate and rhythm without murmurs, rubs or gallops. Prior mastectomy. RESPIRATORY: Breath sounds equal bilaterally, no wheezes rales or rhonchi. ABDOMEN: Soft, nontender. Normoactive bowel sounds all 4 quadrants. No guarding or rebound, rigidity, no mass : No CVA tenderness EXTREMITIES: Normal range of motion, no clubbing, bilateral pedal edema mild pretibial edema bilaterally nonpitting. Neurovascularly intact NEUROLOGICAL: Cranial nerves II through XII grossly intact. Moving all extremities SKIN: Warm, dry, no petechiae, no rashes or lesions. Initial Vital Signs Initial Vital Signs: Vital Signs Pulse Rate 69 07/31/25 14:29 Respiratory Rate 16 07/31/25 14:29 Blood Pressure 95/61 07/31/25 14:29 Pulse Oximetry 97 07/31/25 14:29 Oxygen Delivery Method Room Air 07/31/25 14:29 Scores HEART Score Heart Score history: Moderately Suspicious Heart Score EKG: Normal Heart Score Age: > or = 65 years old Heart Score risk factors: > 3 risk factors or hx of atherosclerotic disease Heart Score troponin: < or = to normal limit Heart Score Total: 5 Course Orders Ordered: Acetaminophen (Acetaminophen 325 Mg Tablet) 650 mg PO Q6H PRN PRN Reason: Fever/Mild Pain (1-3) Apixaban (Apixaban 5 Mg Tablet) 5 mg PO BID [facility] Last Admin: 07/31/25 21:48 Dose: 5 mg Documented By: CT Clopidogrel Bisulfate (Clopidogrel 75 Mg Tablet) 75 mg PO DAILY [facility] Hydralazine HCl (Hydralazine 20 Mg/Ml Vial) 10 mg IV Q6HR PRN PRN Reason: Hypertension sbp > 180 Last Admin: 08/01/25 00:31 Dose: 10 mg Documented By: CT Lorazepam (Lorazepam 0.5 Mg Tablet) 0.5 mg PO TID PRN PRN Reason: Anxiety Losartan Potassium (Losartan 50 Mg Tablet) 50 mg PO DAILY [facility] Morphine Sulfate (Morphine 4 Mg/Ml Inj) 3 mg IV Q2HR PRN PRN Reason: Pain, Severe (7-10) Naloxone HCl (Naloxone 0.4 Mg/Ml Vial) 0.2 mg IV Q2MIN PRN PRN Reason: Opiate Reversal Non-Formulary Medication (Rosuvastatin) 30 mg PO DAILY [facility] Ondansetron HCl (Ondansetron 4 Mg/2 Ml Inj) 4 mg IV Q8HR PRN PRN Reason: Nausea And Vomiting Sertraline HCl (Sertraline 50 Mg Tablet) 50 mg PO DAILY [facility] Discontinued Medications Aspirin (Aspirin 81 Mg Chew Tab) 324 mg PO NOW ONE Stop: 07/31/25 14:35 Last Admin: 07/31/25 14:44 Dose: Not Given Documented By: RYAN Losartan Potassium (Losartan 25 Mg Tablet) 50 mg PO DAILY [facility] Losartan Potassium (Losartan 50 Mg Tablet) 50 mg PO NOW ONE Stop: 08/01/25 03:14 Last Admin: 08/01/25 03:31 Dose: 50 mg Documented By: CT Vital Signs Vital signs: Vital Signs - 8 hr 07/31/25 14:29 Pulse Rate 69 Respiratory Rate 16 Blood Pressure 95/61 Pulse Oximetry 97 Oxygen Delivery Method Room Air MDM - Chest Pain Lab Data 07/31/25 14:38 07/31/25 14:38 Labs: Lab Results 07/31/25 07/31/25 Range/Units 14:38 16:43 WBC 6.0 (4.5-11.0) X10^3/uL RBC 4.10 (4.0-5.2) X10^6/uL Hgb 12.6 (12.0-16.0) g/dL Hct 37.4 (36-46) % MCV 91.2 (80-100) fL MCH 30.8 (26-34) PG MCHC 33.8 (30-36) % RDW 14.2 (11.6-14.8) % Plt Count 184 (150-400) X10^3/uL Neut % (Auto) 67.3 (50-75) % Lymph % (Auto) 21.3 L (25-40) % [place] % (Auto) 8.2 (3-14) % Eos % (Auto) 3.0 (2-4) % Baso % (Auto) 0.2 (0-2) % Neut # (Auto) 4100 (4521-0189) /uL Lymph # (Auto) 1300 (2077-4975) /uL [place] # (Auto) 500 (0-900) /uL Eos # (Auto) 200 (0-450) /uL Baso # (Auto) 0 (0-100) /uL PT 15.3 H (9.4-12.5) SECONDS INR 1.4 H (0.9-1.3) APTT 31 (25.1-36.5) SECONDS Sodium 140 (137-145) mmol/L Potassium 4.2 (3.4-5.1) mmol/L Chloride 105 (98-107) mmol/L Carbon Dioxide 25 (22-32) mmol/L BUN 12 (7-17) mg/dL Creatinine 0.60 (0.52-1.04) mg/dL Estimated GFR > 60 (>60) mL/min BUN/Creatinine Ratio 20.0 (6-22) Glucose 107 H (70-99) mg/dL Calcium 9.3 (8.4-10.2) mg/dL Magnesium 1.8 (1.6-2.3) mg/dL Total Bilirubin 0.9 (0.2-1.3) mg/dL AST 34 (14-36) IU/L ALT 19 (<35) IU/L Alkaline Phosphatase 78 (38-126) U/L Total Creatine Kinase 116 (30-135) U/L Troponin I < 0.012 < 0.012 (0.01-0.034) ng/mL NT-Pro-B Natriuret Pep 272 (<450) pg/mL Total Protein 7.1 (6.3-8.2) g/dL Albumin 4.2 (3.5-5.0) g/dL Globulin 2.9 (1.7-4.1) g/dL Albumin/Globulin Ratio 1.4 (1.0-2.8) Lipase 70 (23-300) U/L ECG Data Attestation: I personally reviewed and interpreted this ECG as follows: Interpretation: Sinus rhythm, rate of 65 MI 180 QRS is 76 QTC is 443. No acute ST elevation depression. Patient's EKG appears similar to prior today . Patient has prior from 12/26/2023 nonspecific change. Sinus bradycardia rate of 56 MI 188 QRS 86 QTC of 446. No acute ST-elevation or depression MDM Narrative Medical decision making narrative: EKG sinus bradycardia no acute ST elevation depression, repeat EKG shows sinus rhythm, no acute ST changes Labs show normal hemoglobin white count and platelets, INR 1.4 PTT of 31. Electrolytes BUN creatinine are normal glucose is 107 LFTs are normal troponins less than 0.012 with a repeat of less than 0.012 and a BNP of 272. Lipase is 70. Chest x-ray shows no acute cardiopulmonary abnormality. Patient echo 04/22/2025 is mild concentric LVH, left ventricles hyperdynamic EF was 70-75%, mild mitral regurg, mild aortic regurg aortic root sclerosis/calcification. No pericardial effusion. 79-year-old female left chest pain intermittent for a month worse with activity reports increased shortness of breath and increased lower extremity swelling come back salt intake to improve swelling. Has a history of LAD stented is 99% occlusion 3 years ago[address] Spoke with Dr. Bowie at 7:31 p.m., does feel patient would benefit from staying overnight for observation a new med stress test and echo. Particularly she has had a change in her symptoms. Spoke with the hospitalist Dr. Soares @ 1941, as so we can confirm stress test and will accept for chest pain observation. Coordinator notes there is stress test available. Dr. Soares recontacted and accepts. Discharge Plan Departure Patient Disposition: Admitted as Observation Clinical Impression: Chest pain Admit Date/Time: 07/31/25 19:58 Admit Provider: Eligio Soares
--- NOTE | 2025-07-31 20:27 | PM.HP.1 ---
History of Present Illness History of Present Illness Date Patient Seen: 07/31/25 Time Patient Seen: 20:27 Chief complaint: sent from [facility] for cardiac workup Narrative: 79-year-old female with past medical history of coronary disease status post NSTEMI and stent placement to her LAD, hypertension, hyperlipidemia, atrial fibrillation on Eliquis and Plavix, and breast cancer with history of mastectomy presents with complaint of chest pain. Per the patient's report, the patient started to have intermittent shortness of breath with some swelling of her bilateral ankle over the last month. Over the last few days the patient has been having intermittent chest pain as well. The patient describes her chest pain as chest pressure, left-sided, nonradiating and occurs both at rest and with exertion. The patient however denies any recent fever, chills, nausea, vomiting, diarrhea or syncope. The patient states that her chest pain is different from when she had an NSTEMI in the past. The patient did reach out to her bran mixer Dr. Contreras today regarding the chest pain and was told to come into our ER for further evaluation. In the emergency room, the patient was hemodynamically stable and was saturating well on room air. Labs shows relatively benign values with trops negative x 2. BNP only 272. EKG shows no acute ST or T wave changes to suggest acute ischemia. The patient chest pain did improve while in the ER. Hereditary Cancer Program Coordinator, Dr. Bowie on-call was called and recommend that we admit the patient for nuclear stress test in the morning with echocardiogram and continue to trend troponin. [facility] Medical History CAD (coronary artery disease) Carpal tunnel syndrome (05/02/08) Anxiety about health Breast cancer Irritable bowel (Unknown) Arm fracture, right (12/2007) Herpes (Unknown) Carpal tunnel syndrome (04/2008) Osteopenia (Unknown) Depression (Unknown) Hypertension (Unknown) Hyperlipemia (Unknown) Alopecia (Unknown) Rosacea (Unknown) Hypoglycemia (Unknown) Surgical History Hx of breast biopsy History of removal of ovarian cyst (1970) History of tonsillectomy Family History Brother Mouth cancer Cancer Heart disease Father Stroke Diabetes mellitus Gallstones Mother Hypertension Heart disease Social History household members: none Smoking Status: Never smoker second hand exposure: No alcohol intake: former substance use type: does not use Meds Home Medications and Allergies Home Medications ?Medication ?Instructions ?Recorded ?Confirmed ?Type LACTAID 1 cap PO ONCE PRN Lactose 12/25/18 07/31/25 History Intolerance apixaban 5 mg tablet 5 mg PO BID 07/13/22 07/31/25 History clopidogrel 75 mg tablet 75 mg PO DAILY 07/13/22 07/31/25 History metoprolol succinate 25 mg 25 mg PO DAILY 07/13/22 07/31/25 History tablet,extended release 24 hr rosuvastatin 20 mg tablet 30 mg PO DAILY 08/19/24 07/31/25 History sennosides 8.6 mg tablet (Natural 8.6 mg PO DAILY 08/19/24 07/31/25 History Vegetable Laxative (sennosides)) sertraline 50 mg tablet 50 mg PO DAILY #90 tabs 10/07/24 07/31/25 Rx losartan 25 mg tablet 50 mg PO BID 07/31/25 07/31/25 History Allergies Allergy/AdvReac Type Severity Reaction Status Date / Time erythromycin base Allergy Intermediate Vomiting Verified 03/18/25 09:46 (ERYTHROMYCIN BASE) meperidine (MEPERIDINE) Allergy Mild Light Verified 03/18/25 09:46 headed lactose AdvReac Mild GAS, Verified 03/18/25 09:46 BLOATING AND GI UPSET RAISED BREADS AdvReac Mild Tightening Uncoded 03/18/25 09:46 in my lungs, wheezing and shortness of breath Review of Systems Review of Systems ROS: Yes All systems reviewed with the patient and are negative except as otherwise documented Exam Vital Signs (past 8 hours): - 07/31/25 14:29 Pulse Rate 69 Respiratory Rate 16 Blood Pressure 95/61 Pulse Oximetry 97 Oxygen Delivery Method Room Air Oxygen Delivery Method Room Air Narrative Exam Narrative: Physical Exam: GENERAL: The patient is not in any acute distressed. Awake and alert. HEENT: Nonicteric sclerae, PERRLA, EOMI. Oropharynx clear. Moist mucous membranes. Conjunctivae appear well perfused. HEART: Regular rate and rhythm without murmurs. No lower extremities edema. LUNGS: Clear to auscultation bilaterally. No wheezing, crackles or rhonchi ABDOMEN: Soft, positive bowel sounds, nontender. SKIN: No rash, no excessive bruising, petechiae, or purpura. NEUROLOGIC: AxO x 3. Cranial nerves II-XII intact without motor/sensory deficit. Objective Labs 07/31/25 14:38 07/31/25 14:38 Labs: Laboratory Results - last 24 hr 07/31/25 07/31/25 14:38 16:43 WBC 6.0 RBC 4.10 Hgb 12.6 Hct 37.4 MCV 91.2 MCH 30.8 MCHC 33.8 RDW 14.2 Plt Count 184 Neut % (Auto) 67.3 Lymph % (Auto) 21.3 L Elbert % (Auto) 8.2 Eos % (Auto) 3.0 Baso % (Auto) 0.2 Neut # (Auto) 4100 Lymph # (Auto) 1300 Elbert # (Auto) 500 Eos # (Auto) 200 Baso # (Auto) 0 PT 15.3 H INR 1.4 H APTT 31 Sodium 140 Potassium 4.2 Chloride 105 Carbon Dioxide 25 BUN 12 Creatinine 0.60 Estimated GFR > 60 BUN/Creatinine Ratio 20.0 Glucose 107 H Calcium 9.3 Magnesium 1.8 Total Bilirubin 0.9 AST 34 ALT 19 Alkaline Phosphatase 78 Total Creatine Kinase 116 Troponin I < 0.012 < 0.012 NT-Pro-B Natriuret Pep 272 Total Protein 7.1 Albumin 4.2 Globulin 2.9 Albumin/Globulin Ratio 1.4 Lipase 70 Assessment & Plan Assessment & Plan narrative: Chest pain. Admit the patient to medical telemetry under observation. Of note the patient does have a significant cardiac history with NSTEMI and a stent to her LAD. Per Dr. Bowie from cardiology, who should admit the patient to continue to trend troponin and obtain echocardiogram and nuclear stress test in the morning. Resume home cardiac medication but will hold metoprolol for stress test. Creatinine nitroglycerin and morphine for chest pain. Check lipid panel and A1c. Patient is currently chest pain-free now. Hypertension. Monitor blood pressure and resume home medication accordingly. Hyperlipidemia. Resume home statin. Atrial fibrillation. Hold metoprolol due to planned stress test in the morning. Will resume Eliquis. DVT prophylaxis Eliquis. CODE STATUS full code. Disposition likely home in 1 to 2 days - As the provider of this telehealth evaluation, requested by the patient's evaluating physician, I attest that I introduced myself to the patient, provided my credentials and determined that telemedicine via a real-time, 2 way interactive audio and video platform is an appropriate and effective means of providing this service. - I reviewed the patient's chart and had a discussion with the member of the patient's treatment team. - The patient and I mutually agreed with continuation of this evaluation via telemedicine. The patient consented for the telemedicine evaluation. - This virtual encounter was taken place from [place] by Dr. Eligio Soares. The patient was evaluated at [facility]. The encounter was approximately 35 minutes. The nurse was present during the entire time of the encounter and was able assists with the stethoscope to listen to the patients. Time-Based Coding :: [TOTAL MINUTES] spent with patient and on the chart (including review of chart, obtaining history, exam, reviewing outside data, placing orders, documenting exam and treatment plan, and counseling patient) on [DATE].
[2025-07-31 20:45] VITALS: BP 159/79; PULSE 62; RESP 17; TEMP 36.4; O2SAT 96
[2025-07-31] MEDS: APIXABAN 5 MG TABLET PO (21:48)
[2025-07-31 22:49] VITALS: BMI 38.2
[2025-07-31 23:40] VITALS: BP 220/67; PULSE 60; RESP 19; O2SAT 94
[2025-08-01] VITALS (11 sets, daily range): BP systolic 160–228; BP diastolic 48–98; PULSE 45–88; RESP 14–17; TEMP 36.1–36.5; O2SAT 94–98
[2025-08-01] MEDS: hydrALAZINE 20 MG/ML VIAL 10 MG IV (00:31)
[2025-08-01] MEDS: LOSARTAN 50 MG TABLET PO ×2 (03:31→08:54)
--- NOTE | 2025-08-01 04:28 | PM.HP.1 ---
History of Present Illness History of Present Illness Chief complaint: [facility] Narrative: 79-year-old female with past medical history of coronary disease status post NSTEMI and stent placement to her LAD, hypertension, hyperlipidemia, atrial fibrillation on Eliquis and Plavix, and breast cancer with history of mastectomy presents with complaint of chest pain. Per the patient's report, the patient started to have intermittent shortness of breath with some swelling of her bilateral ankle over the last month. Over the last few days the patient has been having intermittent chest pain as well. The patient describes her chest pain as chest pressure, left-sided, nonradiating and occurs both at rest and with exertion. The patient however denies any recent fever, chills, nausea, vomiting, diarrhea or syncope. The patient states that her chest pain is different from when she had an NSTEMI in the past. The patient did reach out to her demolition expert Dr. Contreras today regarding the chest pain and was told to come into our ER for further evaluation. In the emergency room, the patient was hemodynamically stable and was saturating well on room air. Labs shows relatively benign values with trops negative x 2. BNP only 272. EKG shows no acute ST or T wave changes to suggest acute ischemia. The patient chest pain did improve while in the ER. Dock Coordinator, Dr. Bowie on-call was called and recommend that we admit the patient for nuclear stress test in the morning with echocardiogram and continue to trend troponin. [facility] Medical History CAD (coronary artery disease) Carpal tunnel syndrome (05/02/08) Anxiety about health Breast cancer Irritable bowel (Unknown) Arm fracture, right (12/2007) Herpes (Unknown) Carpal tunnel syndrome (04/2008) Osteopenia (Unknown) Depression (Unknown) Hypertension (Unknown) Hyperlipemia (Unknown) Alopecia (Unknown) Rosacea (Unknown) Hypoglycemia (Unknown) Surgical History Hx of breast biopsy History of removal of ovarian cyst (1970) History of tonsillectomy Family History Brother Mouth cancer Cancer Heart disease Father Stroke Diabetes mellitus Gallstones Mother Hypertension Heart disease Social History household members: none Smoking Status: Never smoker second hand exposure: No alcohol intake: former substance use type: does not use Meds Home Medications and Allergies Home Medications ?Medication ?Instructions ?Recorded ?Confirmed ?Type LACTAID 1 cap PO ONCE PRN Lactose 12/25/18 07/31/25 History Intolerance apixaban 5 mg tablet 5 mg PO BID 07/13/22 07/31/25 History clopidogrel 75 mg tablet 75 mg PO DAILY 07/13/22 07/31/25 History metoprolol succinate 25 mg 25 mg PO DAILY 07/13/22 07/31/25 History tablet,extended release 24 hr rosuvastatin 20 mg tablet 30 mg PO DAILY 08/19/24 07/31/25 History sennosides 8.6 mg tablet (Natural 8.6 mg PO DAILY 08/19/24 07/31/25 History Vegetable Laxative (sennosides)) sertraline 50 mg tablet 50 mg PO DAILY #90 tabs 10/07/24 07/31/25 Rx losartan 25 mg tablet 50 mg PO BID 07/31/25 07/31/25 History Allergies Allergy/AdvReac Type Severity Reaction Status Date / Time erythromycin base Allergy Intermediate Vomiting Verified 03/18/25 09:46 (ERYTHROMYCIN BASE) meperidine (MEPERIDINE) Allergy Mild Light Verified 03/18/25 09:46 headed lactose AdvReac Mild GAS, Verified 03/18/25 09:46 BLOATING AND GI UPSET RAISED BREADS AdvReac Mild Tightening Uncoded 03/18/25 09:46 in my lungs, wheezing and shortness of breath Review of Systems Review of Systems ROS: Yes All systems reviewed with the patient and are negative except as otherwise documented Exam Vital Signs (past 8 hours): - 07/31/25 20:45 07/31/25 23:40 08/01/25 00:00 Temperature 97.5 F L Pulse Rate 62 60 45 L Respiratory Rate 17 19 Blood Pressure 159/79 H 220/67 H 228/98 H Pulse Oximetry 96 94 98 Oxygen Flow Rate 0 0 0 08/01/25 00:31 08/01/25 01:05 08/01/25 03:31 Temperature Pulse Rate 48 L 75 80 Respiratory Rate Blood Pressure 228/98 H 180/48 H 162/62 H Pulse Oximetry Oxygen Flow Rate Oxygen Delivery Method Room Air Oxygen Flow Rate 0 Narrative Exam Narrative: Physical Exam: GENERAL: The patient is not in any acute distressed. Awake and alert. HEENT: Nonicteric sclerae, PERRLA, EOMI. Oropharynx clear. Moist mucous membranes. Conjunctivae appear well perfused. HEART: Regular rate and rhythm without murmurs. No lower extremities edema. LUNGS: Clear to auscultation bilaterally. No wheezing, crackles or rhonchi ABDOMEN: Soft, positive bowel sounds, nontender. SKIN: No rash, no excessive bruising, petechiae, or purpura. NEUROLOGIC: AxO x 3. Cranial nerves II-XII intact without motor/sensory deficit. Objective Labs 07/31/25 14:38 07/31/25 14:38 Labs: Laboratory Results - last 24 hr 07/31/25 07/31/25 14:38 16:43 WBC 6.0 RBC 4.10 Hgb 12.6 Hct 37.4 MCV 91.2 MCH 30.8 MCHC 33.8 RDW 14.2 Plt Count 184 Neut % (Auto) 67.3 Lymph % (Auto) 21.3 L Terrell % (Auto) 8.2 Eos % (Auto) 3.0 Baso % (Auto) 0.2 Neut # (Auto) 4100 Lymph # (Auto) 1300 Terrell # (Auto) 500 Eos # (Auto) 200 Baso # (Auto) 0 PT 15.3 H INR 1.4 H APTT 31 Sodium 140 Potassium 4.2 Chloride 105 Carbon Dioxide 25 BUN 12 Creatinine 0.60 Estimated GFR > 60 BUN/Creatinine Ratio 20.0 Glucose 107 H Calcium 9.3 Magnesium 1.8 Total Bilirubin 0.9 AST 34 ALT 19 Alkaline Phosphatase 78 Total Creatine Kinase 116 Troponin I < 0.012 < 0.012 NT-Pro-B Natriuret Pep 272 Total Protein 7.1 Albumin 4.2 Globulin 2.9 Albumin/Globulin Ratio 1.4 Lipase 70 Assessment & Plan Assessment & Plan narrative: Chest pain. Admit the patient to medical telemetry under observation. Of note the patient does have a significant cardiac history with NSTEMI and a stent to her LAD. Per Dr. Bowie from cardiology, who should admit the patient to continue to trend troponin and obtain echocardiogram and nuclear stress test in the morning. Resume home cardiac medication but will hold metoprolol for stress test. Creatinine nitroglycerin and morphine for chest pain. Check lipid panel and A1c. Patient is currently chest pain-free now. Hypertension. Monitor blood pressure and resume home medication accordingly. Hyperlipidemia. Resume home statin. Atrial fibrillation. Hold metoprolol due to planned stress test in the morning. Will resume Eliquis. DVT prophylaxis Eliquis. CODE STATUS full code. Disposition likely home in 1 to 2 days - As the provider of this telehealth evaluation, requested by the patient's evaluating physician, I attest that I introduced myself to the patient, provided my credentials and determined that telemedicine via a real-time, 2 way interactive audio and video platform is an appropriate and effective means of providing this service. - I reviewed the patient's chart and had a discussion with the member of the patient's treatment team. - The patient and I mutually agreed with continuation of this evaluation via telemedicine. The patient consented for the telemedicine evaluation. - This virtual encounter was taken place from [place] by Dr. Eligio Soares. The patient was evaluated at [facility]. The encounter was approximately 35 minutes. The nurse was present during the entire time of the encounter and was able assists with the stethoscope to listen to the patients. Time-Based Coding :: [TOTAL MINUTES] spent with patient and on the chart (including review of chart, obtaining history, exam, reviewing outside data, placing orders, documenting exam and treatment plan, and counseling patient) on [DATE]. Quality VTE Deep Vein Thrombosis/Pulmonary Embolism Present on Admission: No
--- NOTE | 2025-08-01 04:36 | DI.ECHO.S_ITS ---
:Name: TAMEKA MCCAIN Study Date: 08/01/2025 Height: 62 in : :Hospital Reading Location: Weight: 205 lb: : Gender: Female BSA: 1.9 m2 : :: 1945 Age: 79 yrs : :Reason For Study: Chest Pain : :Ordering Physician: BIANCA PEGUERO Performed By: Jacqueline Kelly : :Referring: BIANCA PEGUERO : + + Interpretation Summary The ejection fraction is estimated to be 65-70%. The right ventricle is normal in size and function. The left atrium is moderately dilated. The IVC is dilated (diameter is greater than 2.1 cm) yet it collapses greater than 50% with a sniff. This suggests a right atrial pressure of 8 mm Hg. No significant valvular abnormalities. Procedure: A two-dimensional transthoracic echocardiogram with color flow and Doppler was performed. The study was done portably. The study quality was technically adequate. Comparison is made with the echocardiogram of 04/22/2025. The patient was in sinus rhythm with heart rates between 52-65 bpm during the exam. Left Ventricle: There is mild concentric left ventricular hypertrophy. An intracavitary gradient is suspected. The ejection fraction is estimated to be 65-70%. Left ventricular wall motion is normal. Grade I diastolic dysfunction with normal left atrial pressure. Right Ventricle: The right ventricle is normal in size and function. Atria: The left atrium is moderately dilated. Right atrial size is normal. There is no Doppler evidence for an interatrial shunt. Mitral Valve: There is mild mitral annular calcification. The mitral valve leaflets are mildly calcified. There is no mitral valve stenosis. There is trace mitral regurgitation. Aortic Valve: The aortic valve is trileaflet. The aortic valve opens well. The aortic valve is mildly calcified. There is no aortic valve stenosis. There is trace aortic regurgitation. Tricuspid Valve: The tricuspid valve leaflets are thin and pliable. There is trace tricuspid regurgitation. Pulmonic Valve: The pulmonic valve is not well seen, but is grossly normal. There is no pulmonic valvular regurgitation. Great Vessels: The aortic root is normal size. The ascending aorta is normal in size. The aortic arch is normal in size. The pulmonary artery is normal size. The IVC is dilated (diameter is greater than 2.1 cm) yet it collapses greater than 50% with a sniff. This suggests a right atrial pressure of 8 mm Hg. Pericardium/ Pleura There is a small pericardial effusion noted. There is no pleural effusion. MMode/2D Measurements & Calculations LVIDd: 5.0 cm AoV Openin.6 cm LVIDs: 3.8 cm LVOT diam: 2.1 cm IVSd: 1.2 cm Ao root diam: 2.7 cm LVPWd: 1.2 cm asc Aorta Diam: 3.3 cm LV gee. diameter/BSA (cm/m^2): 2.6 Ao Arch Diam (Prox Trans): 2.2 cm LV sys. diameter/BSA (cm/m^2): 2.0 FS: 23.8 % EPSS: 0.37 cm LA A2 area: 20.6 cm2 RA long axis: 5.0 cm LA A4 area: 22.3 cm2 RA area: 14.8 cm2 LA length (vol): 4.8 cm RA vol: 37.2 ml LA vol: 80.7 ml RA : 19.3 ml/m2 LA vol index: 41.8 ml/m2 TAPSE: 2.0 cm IVC diam: 2.2 cm Doppler Measurements & Calculations Ao V2 max: 175.6 cm/sec LVOT Max Ranjan: 133.3 cm/sec Ao V2 mean: 120.3 cm/sec LV V1 max P.1 mmHg Ao V2 VTI: 37.1 cm LV V1 VTI: 31.8 cm Ao max P.3 mmHg Ao mean P.5 mmHg ATUL(I,D): 2.9 cm2 MV E max ranjan: 87.2 cm/sec ATUL(V,D): 2.6 cm2 MV A max ranjan: 94.4 cm/sec ATUL indexed to BSA (cm^2/m^2): 1.5 MV E/A: 0.92 sev ratio: 0.86 Med Peak E' Ranjan: 4.5 cm/sec E/E' med: 19.4 Lat Peak E' Ranjan: 8.7 cm/sec E/E' lat: 10.0 E/e' average: 14.7 MV dec time: 0.29 sec TR max ranjan: 232.4 cm/sec MV mean P.9 mmHg TR max P.6 mmHg MVA(VTI): 2.9 cm2 PA pr(Accel): 25.9 mmHg MV V2 mean: 63.2 cm/sec MV V2 VTI: 37.3 cm SV(LVOT): 108.4 ml Reading Physician:04:48 PM
[2025-08-01 05:30] LABS: Add Manual Diff / Slide Review NO; Hematocrit 35.2 % (36-46); Hemoglobin 12.1 g/dL (12.0-16.0); Lymphocytes Absolute Auto 1700 /uL (1100-4500); Mean Corpuscular HGB Conc 34.4 % (30-36); Mean Corpuscular Hemoglobin 31.6 PG (26-34); Mean Corpuscular Volume 91.6 fL (80-100); Platelet Count 155 X10^3/uL (150-400)
[2025-08-01 05:46] LABS: Blood Urea Nitrogen 11 mg/dL (7-17); Calcium 8.9 mg/dL (8.4-10.2); Carbon Dioxide 25 mmol/L (22-32); Chloride 105 mmol/L (98-107); Estimated Glomerular Filt Rate > 60 mL/min (>60); Glucose 119 mg/dL (70-99); HEMOLYSIS < 15 (0-50); Potassium 3.7 mmol/L (3.4-5.1); Sodium 137 mmol/L (137-145)
[2025-08-01 05:48] LABS: Hemoglobin A1C% w Est Avg Glu 6.4 % (4.0-6.0)
[2025-08-01 05:55] LABS: Cholesterol 136 mg/dL (140-199); HDL Cholesterol 36 mg/dL (40-60); Triglycerides 194 mg/dL (35-150)
[2025-08-01 05:56] LABS: Troponin I < 0.012 ng/mL (0.01-0.034)
--- NOTE | 2025-08-01 07:32 | PC.NURSE ---
Pt SBP 220, HR 45 @ 2340, Dr Soares made aware, Hydralazine 10 mg IV ordered/ administered per jan. Additional dose of pt's home losartan given @~0330. VS followed closely, see chart for vs.
--- NOTE | 2025-08-01 08:43 | CM.DANOTE ---
Initial DCP Assessment Note Pt is a 79 yo female, resident of [place], admitted for chest pain r/o with stress test, echo, trend trops PCP: Dr Schultz Payer: Jimmy VALDES Reviewed chart, patient lives independently, alone, and plans to return with friends and family checking on her. Depending on results from stress test etc patient may be able to discharge today. No barriers identified at this time to patient's safe discharge home; close outpatient f/u recommended. Social work team will plan to follow clinical course closely in case any DC needs or concerns arise. BRY Art Discharge Planning/Care Management CM Discharge Assessment Start: 07/31/25 21:09 Freq: Status: Active Protocol: Document 08/01/25 08:31 ALISON (Rec: 08/01/25 08:43 ALISON [email or web address]) Discharge Planning Assessment Assigned Discharge BRY Leon Call Or Contact Centre Coach DPOA/Assigned Rubens Ybarra, son Designee Name Contact Information P [phone] Advance Directives? No History Provided By Patient,Medical Record Prior Living House Arrangements Household Members none Type of Drives own vehicle transporation used prior to admit Independent with ADL Yes 's Is patient alert and Yes oriented? Comment does not use at baseline but has access to cane/walker from her mother Discharge Plan Home Transportation Family Arrangement Referrals Initiated None needed
[2025-08-01] MEDS: ATORVASTATIN 20 MG TABLET 60 MG PO (08:52)
[2025-08-01] MEDS: APIXABAN 5 MG TABLET PO (08:53)
[2025-08-01] MEDS: SERTRALINE 50 MG TABLET PO (08:54)
[2025-08-01] MEDS: CLOPIDOGREL 75 MG TABLET PO (08:54)
--- NOTE | 2025-08-01 14:24 | CM.DPNOTE ---
LEILA Morales Met w/patient per her request to discuss insurance and cost of care questions. Patient walks independently around the halls and in her room; patient explains that she was told that the first part of her stress test could be done today and the second part would be delayed until Monday. Patient remains OBS today. Discussed OBS status vs INPT status to the best of this CERTIFIED WELDING INSPECTOR's ability and patient was satisfied by this. Discussed [facility] and their ability to approve or deny any authorization request. Patient is concerned that if she stays the weekend under OBS the out of pocket cost would be high. Later learned from CM Dept Labor Training Manager Viktoria Suh-Clover that patient was considering declining the stress test today. The stress test cannot be partially completed- inpatient and outpatient- it would need to be done either completely inpatient or completely outpatient. Patient has decided to decline the stress test today. Echo done at bedside. Dr Demarco updated. JW
--- NOTE | 2025-08-01 18:24 | PM.DS.IH.1 ---
History of Present Illness History of Present Illness Date Patient Seen: 08/01/25 Time Patient Seen: 12:40 Chief complaint: sent from [facility] for cardiac workup Narrative: 79-year-old female with past medical history of coronary disease status post NSTEMI and stent placement to her LAD, hypertension, hyperlipidemia, atrial fibrillation on Eliquis and Plavix, and breast cancer with history of mastectomy presents with complaint of chest pain. Per the patient's report, the patient started to have intermittent shortness of breath with some swelling of her bilateral ankle over the last month. Over the last few days the patient has been having intermittent chest pain as well. The patient describes her chest pain as chest pressure, left-sided, nonradiating and occurs both at rest and with exertion. The patient however denies any recent fever, chills, nausea, vomiting, diarrhea or syncope. The patient states that her chest pain is different from when she had an NSTEMI in the past. 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 Contreras today regarding the chest pain and was told to come into our ER for further evaluation. In the emergency room, the patient was hemodynamically stable and was saturating well on room air. Labs shows relatively benign values with trops negative x 2. BNP only 272. EKG shows no acute ST or T wave changes to suggest acute ischemia. The patient chest pain did improve while in the ER. Environmental Management Specialist, Dr. Bowie on-call was called and recommend that we admit the patient for nuclear stress test in the morning with echocardiogram and continue to trend troponin. Discharge Providers Provider Date of admission: 07/31/25 19:58 Discharge Date: 08/01/25 Primary care physician: Graciela Schultz MD Discharge provider: Leonidas Demarco MD Summary Hospital Course Discharge Diagnosis: 1. Chest pain due to hypertensive heart disease. 2. Coronary artery disease, with history of non STEMI status post LAD stenting in the past 3. Hypertension 4. Hyperlipidemia 5. Chronic atrial fibrillation on Eliquis 6. History of breast cancer Hospital Course: The patient was admitted to observation status on telemetry and monitored with serial cardiac enzymes, returning normal and ruling out for myocardial infarction. Blood pressures were persistently hypertensive during hospitalization in the 170s systolic range. She had noted recent elevation in blood pressures in this range at home. She had no further chest pain during her hospitalization. Echocardiography obtained reported ejection fraction 65-70%, no wall motion abnormalities, mild concentric left ventricular hypertrophy with possible borderline a obstructive cardiomyopathy, and no significant valvular abnormalities. Case is reviewed with Dr. Contreras of Cardiology who recommended increase beta-blockade. The patient was feeling well and interested in discharge home. The patient acknowledged understanding, agreement and appreciation of this plan of care, and agreed to call back with any questions or concerns. Advise follow-up in 1 week to discuss increasing carvedilol dose with up titration. Status at Discharge Cognitive/behavioral status at discharge: oriented Functional status at discharge: independent ambulation Overall status at discharge: patient is back to baseline Time Spent with Patient Time spent: Greater than 30 minutes Exam Vital Signs (past 8 hours): - 08/01/25 12:00 08/01/25 16:00 Temperature 97 F L 97.7 F Pulse Rate 67 62 Respiratory Rate 17 14 Blood Pressure 167/69 H 174/56 H Pulse Oximetry 94 96 Oxygen Flow Rate 0 Oxygen Delivery Method Room Air Oxygen Flow Rate 0 Narrative Exam Narrative: GENERAL: This is a well-nourished, well-developed patient, in no apparent distress. EYES: Pupils equal round and reactive. Extraocular motions intact. No scleral icterus. No injection or drainage. ENT: Mucous membranes pink and moist. NECK: Trachea midline. No JVD, bruits or lymphadenopathy. Supple, nontender, no meningeal signs. CARDIOVASCULAR: Regular rate and rhythm without murmurs, gallops, or rubs. RESPIRATORY: Clear to auscultation. GASTROINTESTINAL: Abdomen soft, non-tender, nondistended. EXTREMITIES: No clubbing, cyanosis, or edema. NEUROLOGIC: Alert, oriented, speech fluent, full upper and lower motor strength, no focal deficits evident. DERMATOLOGIC: No rashes or skin lesions. Objective Labs 08/01/25 04:45 08/01/25 04:45 Labs: Laboratory Results - last 24 hr 08/01/25 04:45 WBC 6.3 RBC 3.85 L Hgb 12.1 Hct 35.2 L MCV 91.6 MCH 31.6 MCHC 34.4 RDW 14.3 Plt Count 155 Neut % (Auto) 60.5 Lymph % (Auto) 27.0 [place] % (Auto) 8.6 Eos % (Auto) 3.0 Baso % (Auto) 0.9 Neut # (Auto) 3800 Lymph # (Auto) 1700 [place] # (Auto) 500 Eos # (Auto) 200 Baso # (Auto) 100 Sodium 137 Potassium 3.7 Chloride 105 Carbon Dioxide 25 BUN 11 Creatinine 0.51 L Estimated GFR > 60 BUN/Creatinine Ratio 21.6 Glucose 119 H Hemoglobin A1c 6.4 H Calcium 8.9 Troponin I < 0.012 Triglycerides 194 H Cholesterol 136 L LDL Cholesterol, Calc 61 HDL Cholesterol 36 L [facility] Medical History Alopecia (Unknown) Anxiety about health Arm fracture, right (12/2007) Breast cancer CAD (coronary artery disease) Carpal tunnel syndrome (04/2008) Carpal tunnel syndrome (05/02/08) Depression (Unknown) Herpes (Unknown) Hyperlipemia (Unknown) Hypertension (Unknown) Hypoglycemia (Unknown) Irritable bowel (Unknown) Osteopenia (Unknown) Rosacea (Unknown) Surgical History History of removal of ovarian cyst (1970) History of tonsillectomy Hx of breast biopsy Family History Brother Mouth cancer Cancer Heart disease Father Stroke Diabetes mellitus Gallstones Mother Hypertension Heart disease Social History household members: none Smoking Status: Never smoker second hand exposure: No alcohol intake: former substance use type: does not use Discharge Plan Discharge Plan Patient Disposition: Home Provider Discharge Comment: Followup with Dr. Schultz 1 week; followup with Dr. Contreras Discharge orders & Medications Prescriptions: New carvedilol 3.125 mg tablet 3.125 mg PO BID Qty: 60 0RF Rx Instructions: must administer with a meal/food Continued LACTAID 1 cap PO ONCE PRN (Reason: Lactose Intolerance) sennosides [Natural Veg Laxative(sennosid)] 8.6 mg tablet 8.6 mg PO DAILY clopidogrel 75 mg tablet 75 mg PO DAILY apixaban 5 mg tablet 5 mg PO BID sertraline 50 mg tablet 50 mg PO DAILY Qty: 90 3RF rosuvastatin 20 mg tablet 30 mg PO DAILY Patient Comments: TAKE 1 TABLET BY MOUTH ONCE DAILY losartan 25 mg tablet 50 mg PO BID Discontinued metoprolol succinate 25 mg tablet extended release 24 hr 25 mg PO DAILY Follow up/Referrals: Graciela Schultz MD [Primary Care Provider, Family Practice] Visit Report/Discharge Packet Stand Alone Forms: Patient Portal/API, Stroke Signs & Symptoms Discharge Data Primary Care Provider: Graciela Schultz Attending Provider: Eligio Soares Admit Date/Time: 07/31/25 19:58 Quality VTE Deep Vein Thrombosis/Pulmonary Embolism Present on Admission: No MIPS - Admit I confirm the patient?s Advance Care Plan is present, Code status is documented, Surrogate decision maker is in patient?s record [If Yes, STOP here]: Yes MIPS - Meds 'Current medications' to include all prescriptions, [id number] products, herbals, cannabis/cannabidiol products, and vitamin/mineral/dietary (nutritional) supplements. I have utilized all available resources to obtain, update, or review the patient?s current medications. [If Yes, STOP here]: Yes MIPS - DC The patient has a history of heart transplant or Left Ventricular Assist Device (LVAD). If yes, STOP here.: No The patient has current or prior documentation of left ventricular ejection fraction (LVEF) less than or equal to 40%, or moderate or severely depressed left ventricular systolic function.: No A. The patient was prescribed or already taking an Angiotensin-Converting Enzyme (JAMILAH) Inhibitor, or Angiotensin Receptor Gabe (ARB).: Yes B. The patient was prescribed or already taking a beta-gabe. [If Yes to Both A & B, STOP here]: Yes Patient not prescribed/taking JAMILAH or ARB, no reason given.: No Patient not prescribed/taking beta-gabe, no reason given.: No PROFEE Charge Codes Discharge inpatient/observation: [id number]
== END 2025-08-01 21:19 | disposition home or self-care (01) ==
LOC: ED 18:33 → AC 19:58
PROVIDERS: Emergency Medicine; Admitting Provider Internal Medicine; Emergency Provider Emergency Medicine; PCP Student in an Organized Health Care Education/Training Program; Referring Provider Emergency Medicine; Visit Provider Internal Medicine
DX: R07.9 Chest pain, unspecified (principal); I25.2 Old myocardial infarction; Z95.818 Presence of other cardiac implants and grafts; Z85.3 Personal history of malignant neoplasm of breast; Z90.10 Acquired absence of unspecified breast and nipple; I10 Essential (primary) hypertension; E78.5 Hyperlipidemia, unspecified; Z79.01 Long term (current) use of anticoagulants; I48.91 Unspecified atrial fibrillation
CPT/HCPCS: 36415; 71045; 80048; 80053; 80061; 82550; 83036; 83690; 83735; 83880; 84484; 85025; 85610; 85730; 93005; 93306; 96374; 99283; 99284; G0378; J0360

== ENCOUNTER 2025-11-26 10:02 | Emergency (ER) | payer OTHER, SELFPAY ==
[2025-11-26] VITALS (25 sets, daily range): BP systolic 138–217; BP diastolic 70–149; PULSE 63–106; RESP 14–28; TEMP 37.3; O2SAT 91–99; BMI 38.4
--- OUTSIDE RECORDS SUMMARY | 2025-11-26 10:09 | XMS_ITS | Encounter Summary ---
Author Organization [facility] Address [address] [place] [address] Care Team Providers Care Authorization Rep Name Role Phone Graciela Tafoya MD Primary Care Provider [phone] Reason for Referral * Diagnostic Imaging (Routine) - Authorized Specialty Diagnoses / Procedures Referred By Contac t Referred To Contact Radiology Diagnoses Presence of drug coated stent in LAD coronary artery Chest discomfort Procedures ECHOCARDIOGRAM STRESS ISCHEMIA Genesis Contreras MD [address] [address] [place] [address] Phone: tel: fax: [facility] Echocardiography [address] [place] [address] Phone: tel: Referral ID Status Reason Start Date Expiration Date Visits Requested Visits Authorized [id number] Authorized Specialty Services Required 05/23/2025 05/23/2026 1 1 Encounter Details Date Type Department Care Team ([facility] st Contact Info) Description 05/16/2025 Orders Only [facility] Cardiology [address], [place] [address] Genesis Contreras MD [address] [place] [id number] Presence of drug coated stent in LAD coronary artery (Primary Dx); Chest discomfort Social History Tobacco Use Types Packs/Day Years Used Date Smoking Tobacco: Never Smokeless Tobacco: Never Comments Unknown Sex and Gender Information Value Date Recorded Sex Assigned at Not on file Legal Sex Female 7:43 PM PDT Gender Identity Not on file Sexual Orientation Not on file documented as of this encounter Plan of Treatment Scheduled Orders Name Type Priority Associated Diagnoses Orde r Schedule ECHOCARDIOGRAM STRESS ISCHEMIA Imaging Routine Presence of drug coated stent in LAD coronary artery Chest discomfort Expected: 05/23/2025, Expires: 08/16/2026 documented as of this encounter Visit Diagnoses Diagnosis Presence of drug coated stent in LAD coronary artery- Primary Chest discomfort Other chest pain documented in this encounter Care Teams Authorization Rep Relationship Specialty Start [place] [address] [place] [id number] PCP - General Family Medicine 04/14/25 documented as of this encounter
--- NOTE | 2025-11-26 10:15 | DI.RAD.S_ITS ---
PROCEDURE: XR CHEST 1V INDICATIONS: shortness of breath TECHNIQUE: One view of the chest was acquired. COMPARISON: [facility], , XR CHEST 1V, 07/31/2025, 13:54. [facility], CR, XR CHEST 1V, 12/25/2023, 15:09. FINDINGS: Surgical changes and devices: None. Lungs and pleura: Lungs are clear. No pleural effusions or pneumothorax. Mediastinum: Cardiac silhouette is mildly enlarged. Bones and chest wall: No suspicious bony lesions. Overlying soft tissues appear unremarkable. IMPRESSION: Mild cardiomegaly. No acute cardiopulmonary abnormality is seen. Approved by: Ephraim Souza M.D. on 11/26/2025 at 11:06
--- NOTE | 2025-11-26 10:27 | ED.GENADULT ---
HPI - General Adult General Chief complaint: Hypertension Stated complaint: Generalized Anxiety Time Seen by Provider: 11/26/25 10:38 Source: patient Mode of arrival: Ambulatory History of Present Illness HPI narrative: The patient is a 80 year old female brought in by EMS for evaluation of wheezing, leg swelling, and anxiety. Past medical history includes coronary artery disease status post stent placement, anticoagulation with Eliquis, hypertension, hyperlipidemia, anxiety, and depression. She reports being in her usual state of health until last night, when she had ?a bad night? and was unable to sleep due to her legs feeling puffy. Earlier today, her primary care provider?s office called to schedule a follow up appointment, and the nurse noted that the patient sounded winded over the phone and advised her to come to the emergency department. The patient denies chest pain, diaphoresis, nausea, vomiting, fever, chills, or upper respiratory symptoms. Related Data Home Medications ?Medication ?Instructions ?Recorded ?Confirmed LACTAID 1 cap PO ONCE PRN Lactose 12/25/18 07/31/25 Intolerance apixaban 5 mg tablet 5 mg PO BID 07/13/22 07/31/25 clopidogrel 75 mg tablet 75 mg PO DAILY 07/13/22 07/31/25 rosuvastatin 20 mg tablet 30 mg PO DAILY 08/19/24 07/31/25 sennosides 8.6 mg tablet (Natural 8.6 mg PO DAILY 08/19/24 07/31/25 Vegetable Laxative (sennosides)) losartan 25 mg tablet 50 mg PO BID 07/31/25 07/31/25 Previous Rx's ?Medication ?Instructions ?Recorded sertraline 50 mg tablet 50 mg PO DAILY #90 tabs 09/25/25 carvedilol 3.125 mg tablet 3.125 mg PO BID #60 tabs 10/19/25 cephalexin 500 mg capsule 500 mg PO BID #10 caps 11/26/25 Allergies Allergy/AdvReac Type Severity Reaction Status Date / Time erythromycin base Allergy Intermediate Vomiting Verified 03/18/25 09:46 (ERYTHROMYCIN BASE) meperidine (MEPERIDINE) Allergy Mild Light Verified 03/18/25 09:46 headed lactose AdvReac Mild GAS, Verified 03/18/25 09:46 BLOATING AND GI UPSET RAISED BREADS AdvReac Mild Tightening Uncoded 03/18/25 09:46 in my lungs, wheezing and shortness of breath Review of Systems Review of Systems ROS Unobtainable: All systems reviewed & are unremarkable except as noted in HPI and below Patient History Medical History Alopecia (Unknown) Anxiety about health Arm fracture, right (12/2007) Breast cancer CAD (coronary artery disease) Carpal tunnel syndrome (04/2008) Carpal tunnel syndrome (05/02/08) Depression (Unknown) Herpes (Unknown) Hyperlipemia (Unknown) Hypertension (Unknown) Hypoglycemia (Unknown) Irritable bowel (Unknown) Osteopenia (Unknown) Rosacea (Unknown) Surgical History History of removal of ovarian cyst (1970) History of tonsillectomy Hx of breast biopsy Family History Brother Mouth cancer Cancer Heart disease Father Stroke Diabetes mellitus Gallstones Mother Hypertension Heart disease Social History household members: none Smoking Status: Never smoker second hand exposure: No alcohol intake: former substance use type: does not use Smoking Status: Never smoker Exam Narrative Exam Narrative: Vitals:? Afebrile, hypertensive, all other vitals within normal range. Gen:? Well-developed, well-nourished, no acute distress Cards:? Regular, no murmurs, rubs, gallops Pulm:? No increased work of breathing, and expiratory wheezing in upper lobes Abd:? Soft, nondistended, nontender Ext:? Trace peripheral edema in bilateral lower extremities Neuro:? A&O x4, cranial nerves intact, moving all 4 extremities spontaneously Psych:? She appears anxious Initial Vital Signs Initial Vital Signs: Vital Signs Pulse Rate 84 11/26/25 10:05 Pulse Oximetry 92 11/26/25 10:05 Course Orders Ordered: Discontinued Medications Ceftriaxone Sodium (Ceftriaxone 2,000 Mg Vial) 1,000 mg IM NOW ONE Stop: 11/26/25 11:48 Last Admin: 11/26/25 12:09 Dose: Not Given Documented By: ZGG Hydralazine HCl (Hydralazine 20 Mg/Ml Vial) 10 mg IV Q6HR PRN PRN Reason: Hypertension Last Admin: 12/31/25 11:18 Dose: 10 mg Documented By: SAMMY Hydralazine HCl (Hydralazine 20 Mg/Ml Vial) 10 mg IV NOW ONE Stop: 11/26/25 12:26 Last Admin: 11/26/25 12:31 Dose: 10 mg Documented By: SAMMY Ceftriaxone Sodium 1,000 mg/ (Sodium Chloride) 100 mls @ 200 mls/hr IV NOW ONE Stop: 11/26/25 11:59 Last Infusion: 11/26/25 12:50 Dose: Infused Documented By: Admin: 11/26/25 12:01 Dose: 200 mls/hr Documented By: SAMMY Lorazepam (Lorazepam 2 Mg/Ml Inj) 0.5 mg IV NOW ONE Stop: 11/26/25 14:18 Last Admin: 11/26/25 15:32 Dose: Not Given Documented By: SAMMY Losartan Potassium (Losartan 50 Mg Tablet) 50 mg PO NOW ONE Stop: 11/26/25 15:00 Last Admin: 11/26/25 15:04 Dose: 50 mg Documented By: SAMMY Sertraline HCl (Sertraline 50 Mg Tablet) 50 mg PO BEDTIME ELENI Last Admin: 11/26/25 15:15 Dose: 50 mg Documented By: SAMMY Vital Signs Vital signs: Vital Signs - 8 hr 11/26/25 10:05 11/26/25 10:11 11/26/25 10:11 Temperature Pulse Rate 84 74 Respiratory Rate Blood Pressure 138/100 H Pulse Oximetry 92 98 Oxygen Delivery Method 11/26/25 10:18 11/26/25 10:30 11/26/25 10:35 Temperature 99.1 F Pulse Rate 70 89 Respiratory Rate 14 Blood Pressure 138/100 H 194/90 H Pulse Oximetry 93 91 Oxygen Delivery Method Room Air 11/26/25 10:35 11/26/25 11:00 11/26/25 11:00 Temperature Pulse Rate 68 69 Respiratory Rate 22 20 Blood Pressure 199/140 H Pulse Oximetry 97 94 Oxygen Delivery Method 11/26/25 11:18 11/26/25 11:44 11/26/25 12:00 Temperature Pulse Rate 63 83 81 Respiratory Rate 15 Blood Pressure 199/140 H Pulse Oximetry 96 97 Oxygen Delivery Method 11/26/25 12:01 11/26/25 12:01 11/26/25 12:30 Temperature Pulse Rate 82 Respiratory Rate 19 Blood Pressure 171/70 H 181/77 H Pulse Oximetry 96 Oxygen Delivery Method 11/26/25 12:30 11/26/25 12:31 11/26/25 13:07 Temperature Pulse Rate 84 86 98 H Respiratory Rate 18 Blood Pressure 181/77 H Pulse Oximetry 96 93 Oxygen Delivery Method 11/26/25 13:08 11/26/25 13:08 11/26/25 13:14 Temperature Pulse Rate 97 H 106 H Respiratory Rate Blood Pressure 199/84 H 199/84 H Pulse Oximetry 97 Oxygen Delivery Method 11/26/25 13:14 11/26/25 13:30 11/26/25 13:31 Temperature Pulse Rate 84 99 H 98 H Respiratory Rate 22 25 H Blood Pressure 199/84 H Pulse Oximetry 99 98 98 Oxygen Delivery Method Room Air 11/26/25 13:31 11/26/25 14:25 11/26/25 14:30 Temperature Pulse Rate 105 H 94 H Respiratory Rate Blood Pressure 206/84 H Pulse Oximetry 95 Oxygen Delivery Method 11/26/25 15:04 Temperature Pulse Rate 94 H Respiratory Rate Blood Pressure 174/73 H Pulse Oximetry Oxygen Delivery Method Medical Decision Making Lab Data 11/26/25 10:12 11/26/25 10:12 Labs: Lab Results 11/26/25 11/26/25 11/26/25 Range/Units 10:12 10:27 13:27 WBC 6.1 (4.5-11.0) X10^3/uL RBC 4.19 (4.0-5.2) X10^6/uL Hgb 12.8 (12.0-16.0) g/dL Hct 38.0 (36-46) % MCV 90.8 (80-100) fL MCH 30.5 (26-34) PG MCHC 33.6 (30-36) % RDW 14.3 (11.6-14.8) % Plt Count 194 (150-400) X10^3/uL Neut % (Auto) 59.9 (50-75) % Lymph % (Auto) 24.0 L (25-40) % [place] % (Auto) 8.4 (3-14) % Eos % (Auto) 5.4 H (2-4) % Baso % (Auto) 2.3 H (0-2) % Neut # (Auto) 3600 (4540-7685) /uL Lymph # (Auto) 1500 (5825-4902) /uL [place] # (Auto) 500 (0-900) /uL Eos # (Auto) 300 (0-450) /uL Baso # (Auto) 100 (0-100) /uL Sodium 141 (137-145) mmol/L Potassium 3.8 (3.4-5.1) mmol/L Chloride 105 (98-107) mmol/L Carbon Dioxide 31 (22-32) mmol/L BUN 7 (7-17) mg/dL Creatinine 0.46 L (0.52-1.04) mg/dL Estimated GFR > 60 (>60) mL/min BUN/Creatinine Ratio 15.2 (6-22) Glucose 123 H (70-99) mg/dL Calcium 8.8 (8.4-10.2) mg/dL Total Bilirubin 0.5 (0.2-1.3) mg/dL AST 37 H (14-36) IU/L ALT 23 (<35) IU/L Alkaline Phosphatase 97 (38-126) U/L Troponin I < 0.012 (0.01-0.034) ng/mL NT-Pro-B Natriuret Pep 442 (<450) pg/mL Total Protein 7.2 (6.3-8.2) g/dL Albumin 4.2 (3.5-5.0) g/dL Globulin 3.0 (1.7-4.1) g/dL Albumin/Globulin Ratio 1.4 (1.0-2.8) Urine RBC None seen (0-5/HPF) Urine WBC 5-10/hpf H (0-5/HPF) Ur Squamous Epith Cells 1-5 /hpf (0-5/HPF) Urine Bacteria None seen (None) Ur Culture Indicated? Specimen cultured Vol Urine Centrifuged 10ml (spun) SARS-CoV-2 (PCR) Negative (Negative) Influenza A (RT-PCR) Flu a negative (NEGATIVE) Influenza B (RT-PCR) Flu b negative (NEGATIVE) RSV (PCR) Negative (Negative) Urine Dip Bedside Urine Glucose Negative Bedside Urine Bilirubin - Negative Bedside Urine Ketone - Negative Urine Specific [place] 1.005 Bedside Urine Occult Blood - Negative Bedside Urine pH 7.5 Bedside Urine Protein - Negative Bedside Urine Urobilinogen - Negative Bedside Urine Nitrite - Negative Bedside Urine Leukocytes +++ 500 Esterase Point of care testing: Urine Dip Bedside Urine Glucose Negative Bedside Urine Bilirubin - Negative Bedside Urine Ketone - Negative Urine Specific [place] 1.005 Bedside Urine Occult Blood - Negative Bedside Urine pH 7.5 Bedside Urine Protein - Negative Bedside Urine Urobilinogen - Negative Bedside Urine Nitrite - Negative Bedside Urine Leukocytes +++ [address] scan - chest: Radiologist's Impression: PROCEDURE: CT ANGIO CHEST PE PROTOCOL INDICATIONS: r/o pe TECHNIQUE: After the administration of intravenous contrast, 2 mm thick sections acquired from the pulmonary apices to the posterior costophrenic angles. 3-dimensional maximum intensity projection (MIP) coronal and sagittal reformats were then acquired through the thorax. For radiation dose reduction, the following was used: automated exposure control, adjustment of mA and/or kV according to patient size. COMPARISON: None. FINDINGS: Image quality: Diagnostic. Pulmonary arteries: Pulmonary arteries are normal in size, and demonstrate no intraluminal filling defects to suggest central pulmonary embolism. Lower Neck: No enlarged lymph nodes. Thyroid: No thyroid nodules which require sonographic follow up, per consensus guidelines. Axillae: No enlarged lymph nodes. Chest Wall: Left mastectomy. Bones: Unremarkable. Lungs and Pleura: No pneumothorax or pleural effusions. No consolidation or suspicious nodules. Heart: Heart size is normal. No pericardial effusion. Moderate coronary calcifications.Thoracic Vessels: No aortic aneurysm. Mediastinum and Gretel: No enlarged lymph nodes. Esophagus: No wall thickening. Small hiatal hernia. Upper Abdomen: Visualized upper abdomen solid organs and bowel loops appear normal. IMPRESSION: No pulmonary embolus. No acute cardiopulmonary process. Dictated by: Luis Felipe Pepper M.D. on 11/26/2025 at 13:42 Approved by: Luis Felipe Pepper M.D. on 11/26/2025 at 13:44 MDM Narrative Medical decision making narrative: 80 year old female brought in by EMS for evaluation of wheezing, leg swelling, and anxiety. EMR Review: Reviewed prior EMR records for hypertension and chest pain. Differential diagnosis: ACS, flash pulmonary edema, acute CHF exacerbation, COPD versus asthma, URI to include viral versus bacterial, pneumonia, anxiety, other. Labs: CBC was without leukocytosis, left shift, no anemia, normal platelets. CMP normal with creatinine 0.46, GFR greater than 60. Troponins undetectable. ProBNP 442. Images: Chest x-ray and CT without any acute findings or filling defects. Consults: None. ED Course: On arrival, the patient appeared significantly anxious. Initial blood pressure was 217/149 with respiratory rate 28. Blood pressure improved to 174/73 with supportive care. Workup was not consistent with ACS, and there was no evidence of end organ damage. BNP was not suggestive of acute CHF exacerbation, and exam did not indicate fluid overload. The patient remained anxious and declined anxiolytics. Due to persistent tachycardia and tachypnea, a CTA was obtained to evaluate for pulmonary embolism; imaging was negative. The patient remained stable throughout her ED stay and was discharged home in stable condition with return precautions. Discharge Plan Departure Patient Disposition: Home Clinical Impression: Urinary tract infection Instructions: DI for Urinary Tract Infection (UTI) Activity Restrictions/Additional Instructions: You were seen in the emergency department for high blood pressure. In the ER: -- It did not appear those if you new which medication she would have taken or your medication schedule. Social work was consulted and offered assistance with managing your medications however you declined. -- EKG, chest x-ray, cardiac enzymes were not consistent with a heart attack. -- Blood counts and electrolytes were normal. -- Your urinalysis was consistent with a urinary tract infection urine. You were given your 1st dose of antibiotics in the ER Plan: -- Complete an additional 5 day course of antibiotic -- Follow up with your primary care physician -- Take your medications as prescribed Prescriptions: New cephalexin 500 mg capsule 500 mg PO BID Qty: 10 0RF No Action LACTAID 1 cap PO ONCE PRN (Reason: Lactose Intolerance) sennosides [Natural Veg Laxative(sennosid)] 8.6 mg tablet 8.6 mg PO DAILY clopidogrel 75 mg tablet 75 mg PO DAILY apixaban 5 mg tablet 5 mg PO BID sertraline 50 mg tablet 50 mg PO DAILY Qty: 90 3RF carvedilol 3.125 mg tablet 3.125 mg PO BID Qty: 60 0RF rosuvastatin 20 mg tablet 30 mg PO DAILY Patient Comments: TAKE 1 TABLET BY MOUTH ONCE DAILY losartan 25 mg tablet 50 mg PO BID Referrals: Graciela Schultz MD [Primary Care Provider, Family Practice] Stand Alone Forms: Patient Portal/API
[2025-11-26 10:33] LABS: Add Manual Diff / Slide Review NO; Hematocrit 38.0 % (36-46); Hemoglobin 12.8 g/dL (12.0-16.0); Lymphocytes Absolute Auto 1500 /uL (1100-4500); Mean Corpuscular HGB Conc 33.6 % (30-36); Mean Corpuscular Hemoglobin 30.5 PG (26-34); Mean Corpuscular Volume 90.8 fL (80-100); Platelet Count 194 X10^3/uL (150-400)
[2025-11-26 10:38] LABS: Alanine Aminotransferase 23 IU/L (<35); Albumin 4.2 g/dL (3.5-5.0); Albumin Globulin Ratio 1.4 (1.0-2.8); Alkaline Phosphatase 97 U/L (38-126); Blood Urea Nitrogen 7 mg/dL (7-17); Calcium 8.8 mg/dL (8.4-10.2); Carbon Dioxide 31 mmol/L (22-32); Chloride 105 mmol/L (98-107); Estimated Glomerular Filt Rate > 60 mL/min (>60); Globulin 3.0 g/dL (1.7-4.1); Glucose 123 mg/dL (70-99); HEMOLYSIS 16 (0-50); Potassium 3.8 mmol/L (3.4-5.1); Sodium 141 mmol/L (137-145); Total Protein 7.2 g/dL (6.3-8.2)
[2025-11-26 10:42] LABS: Culture Indicated Urine Specimen Cultured
[2025-11-26 10:47] LABS: NT-proBNP (BNP-Adult 18+) 442 pg/mL (<450)
[2025-11-26 10:51] LABS: Troponin I < 0.012 ng/mL (0.01-0.034)
[2025-11-26] MEDS: hydrALAZINE 20 MG/ML VIAL 10 MG IV ×2 (11:18→12:31)
--- NOTE | 2025-11-26 12:52 | CM.SWNOTE ---
ED [employer]ASE [employer]UP FILLER Assessment Note: Pt is a 80yo female, resident of [place], is seen in the ED for anxiety, hypertension, and UTI. Pt lives in a house alone. Pt's Primary Care Provider is Dr. Graciela Schultz and insurance is [employer]. Reviewed chart and discussed with multidisciplinary team pt's medical status and initial discharge needs. GRE[employer]UP F[employer]ER consulted due to pt anxiety and reported financial instability, also would like to discuss assistance at home as pt is endorsing medication management issues (missed doses). GREASE CUP FILLER entered room to meet with patient, introduced self and role. GREASE CUP FILLER discussed recommendations of home health RN or community traveling inventory associate to assist with establishing medication routine at home. Pt declines home health, states home health experience in the past with other family members was stressful and she would not like to move forward with that. GREASE CUP FILLER discussed free grief therapy, pt in agreement with calling to follow up with care. GREASE CUP FILLER provided [facility] grief therapy contact to establish care. GRE[employer] CUP F[employer]ER reviews this with ED provider, Dr. Carson, who indicates agreement and understanding. Plan: Discharge home with friend to transport when medically cleared. Pt to follow up with PCP and [facility]. LUCAS Sainz
--- NOTE | 2025-11-26 13:15 | PC.NURSE ---
pt tearful in room. States is there a helicopter? She was told yes and then she stated there are fumes. Then she stated she cant go home because she doesn't feel well. She stated she feels flush and has a headache. Her temp was taken= 97.8F. Her lungs sounds clear bilaterally and throughout. The patient then made a joke and started laughing. She went on to say that she walked to the rest room and became short of breathe.
--- NOTE | 2025-11-26 13:27 | DI.CT.S_ITS ---
PROCEDURE: CT ANGIO CHEST PE PROTOCOL INDICATIONS: r/o pe TECHNIQUE: After the administration of intravenous contrast, 2 mm thick sections acquired from the pulmonary apices to the posterior costophrenic angles. 3-dimensional maximum intensity projection (MIP) coronal and sagittal reformats were then acquired through the thorax. For radiation dose reduction, the following was used: automated exposure control, adjustment of mA and/or kV according to patient size. COMPARISON: None. FINDINGS: Image quality: Diagnostic. Pulmonary arteries: Pulmonary arteries are normal in size, and demonstrate no intraluminal filling defects to suggest central pulmonary embolism. Lower Neck: No enlarged lymph nodes. Thyroid: No thyroid nodules which require sonographic follow up, per consensus guidelines. Axillae: No enlarged lymph nodes. Chest Wall: Left mastectomy. Bones: Unremarkable. Lungs and Pleura: No pneumothorax or pleural effusions. No consolidation or suspicious nodules. Heart: Heart size is normal. No pericardial effusion. Moderate coronary calcifications. Thoracic Vessels: No aortic aneurysm. Mediastinum and Gretel: No enlarged lymph nodes. Esophagus: No wall thickening. Small hiatal hernia. Upper Abdomen: Visualized upper abdomen solid organs and bowel loops appear normal. IMPRESSION: No pulmonary embolus. No acute cardiopulmonary process. Dictated by: Luis Felipe Pepper M.D. on 11/26/2025 at 13:42 Approved by: Luis Felipe Pepper M.D. on 11/26/2025 at 13:44
[2025-11-26 14:19] LABS: Influenza A - CEPHEID Flu A NEGATIVE (NEGATIVE); Influenza B - CEPHEID Flu B NEGATIVE (NEGATIVE)
[2025-11-26 14:24] LABS: COVID-19 CEPHEID 4-PLEX PCR Negative (Negative)
[2025-11-26] MEDS: LOSARTAN 50 MG TABLET PO (15:04)
[2025-11-26] MEDS: SERTRALINE 50 MG TABLET PO (15:15)
--- NOTE | 2025-11-26 15:25 | PC.NURSE ---
pt medication verified by the hospital. Patient unable to clearly state all her medications she takes and at which times. Meds she knows she takes is carvedilol, apixaban, losartan, and sertraline. patient meds verified by medication check in [place]. provider jami meds to order.
--- NOTE | 2025-11-26 16:10 | PC.NURSE ---
Patient was given verbal discharge instruction by the provider after refusing to sign her discharge paperwork. She was given a thorough explanation by the discharging nurse of her labs, imaging reports, and medications. She stated she would not sign her paperwork until her packet was signed by the provider personally. updated. responded and gave another thorough explanation. The patient was not responding in a way that suggested she was not listening to the provider. She was informed that her lab work, imaging, and physical exam were reassuring. She responded with reasking similar questions about her condition. Provider addressed all her concerns in an thorough and appropriate manner. The patient was also informed by the provider that since the pt refused home help to manage her medications and she felt comfortable going home to manage them herself that she was free to do so at home. She was also informed that though she did not meet medical need to inpatient admission today she could come back for a reeval if needed at any time. Patient signed her discharge packet and left the ER with a friend.
== END 2025-11-26 16:21 | disposition home or self-care (01) ==
PROVIDERS: Emergency Provider Student in an Organized Health Care Education/Training Program; PCP Student in an Organized Health Care Education/Training Program
DX: N39.0 Urinary tract infection, site not specified (principal); F41.1 Generalized anxiety disorder; R22.40 Localized swelling, mass and lump, unspecified lower limb; F32.A Depression, unspecified; I10 Essential (primary) hypertension
CPT/HCPCS: 71045; 71275; 80053; 81003; 81015; 83880; 84484; 85025; 87086; 87637; 96365; 96372; 96375; 96376; 99284; J0360; J0696; J7050; Q9967